=== PATIENT | male | born 1965 | race Caucasian/White ===

== ENCOUNTER → 2017-10-14 11:08 | Outpatient (CLI) | payer OTHER, SELFPAY ==
[2017-10-14 11:27] LABS: LDH 280 U/L (87-241); Uric Acid 7.1 mg/dL (3.5-7.2)
== END ==
PROVIDERS: Family Provider Family Medicine; PCP Family Medicine; Visit Provider Internal Medicine Hematology & Oncology
DX: C82.08 Follicular lymphoma grade I, lymph nodes of multiple sites (principal)
CPT/HCPCS: 83615; 84550

== ENCOUNTER 2017-12-22 06:22 | Emergency (ER) | payer OTHER, SELFPAY ==
[2017-12-22 06:23] VITALS: BP 124/67; PULSE 83; RESP 19; TEMP 36.4; O2SAT 98; BMI 37.3
--- NOTE | 2017-12-22 06:40 | RAD_ITS ---
STUDY: X-RAY CHEST REASON FOR EXAM: Male, 52 years old. Chills. TECHNIQUE: PA and lateral views of the chest. COMPARISON: None. FINDINGS: A right-sided portacatheter is in situ. The tip is at the junction of the superior vena cava and right atrium. EKG electrodes are seen. The lungs are clear and expanded. There is no demonstrated pleural abnormality. Normal size heart. Normal mediastinum and chun. Normal visualized pulmonary arteries. Normal visualized aortic arch and descending thoracic aorta. Normal visualized thoracic spine. Normal visualized ribs, clavicles, and shoulders. There is no demonstrated abnormality of the visualized soft tissue structures of the upper abdomen. RAD/Chest PA and Lateral IMPRESSION: Normal x-ray examination of the chest. Electronically Signed: Liam Albert MD at 8:16 EDT Tel [phone], Service support ,
--- NOTE | 2017-12-22 06:41 | EKG12_ITS ---
Test Reason : GEN ILLNESS Blood Pressure : / mmHG Vent. Rate : 074 BPM Atrial Rate : 074 BPM P-R Int : 156 ms QRS Dur : 128 ms QT Int : 428 ms P-R-T Axes : 039 070 029 degrees QTc Int : 475 ms Normal sinus rhythm Right bundle branch block Abnormal ECG Confirmed by LORETTA DIAMOND, HAN ([id number]), science editor MARYURI LOTT ([id number] on 12/26/2017 2:39:36 PM Referred By: ROMY Confirmed By:HAN BURGOS MD
--- NOTE | 2017-12-22 06:41 | ED.VISSUMM ---
- ER Visit Summary Date of Service: 12/22/17 Chief Complaint: Chills History of Present Illness: The patient is a 52 M who presents with chills. He has a history of lymphoma. He is currently undergoing chemotherapy and his last treatment was 1 week ago. He is also been having a lot of diarrhea and was recently treated diagnosed with an anal fissure. He states he took a bath at about 1 AM and has been chilled and unable to get warm since that time. He also complains of some diffuse myalgias and arthralgias. He reports nausea without vomiting. His temperature was normal when he took it at home. He denies any congestion rhinorrhea chest pain shortness of breath cough abdominal pain. They spoke to the on-call oncologist and were advised to be evaluated here in the emergency department. Physical Examination: Afebrile vitals are normal Moist mucous membranes Heart regular rate and rhythm Lungs are clear Abdomen soft nontender nondistended Patient does have some perianal inflammation and irritation no evidence of buttock cellulitis no perianal abscess Test Results: Pending Emergency Department Course and Treatment: Patient was seen shortly prior to shift change. Workup has been ordered including EKG laboratory studies urinalysis lactic and blood cultures given he is immunocompromised with recent chemotherapy and he also recently completed a prednisone burst. Chest x-ray is pending. This patient will be signed out to the oncoming physician to follow-up on results and discuss with oncology and make final disposition. Treatment Plan: [] Disposition: Pending workup and reevaluation Impression: Chills Myalgias Lymphoma This note was generated with [employer] dictation software. It may contain incorrect words, spelling, and punctuation that were not noted in review of the chart prior to signing ED Disposition - Plan for ED Patient: Chief Complaint: General Illness Referrals: John Ward [Primary Care Provider] -
--- NOTE | 2017-12-22 06:45 | ED.DCSUM_ITS ---
- ER Visit Summary Date of Service: 12/22/17 Chief Complaint: Chills History of Present Illness: The patient is a 52 M who presents with chills. He has a history of lymphoma. He is currently undergoing chemotherapy and his last treatment was 1 week ago. He is also been having a lot of diarrhea and was re cently treated diagnosed with an anal fissure. He states he took a bath at about 1 AM and has been chilled and unable to get warm since that time. He also complains of some diffuse myalgias and arthralgias. He reports nausea without vomiting. His temperature was normal when he took it at home. He denies any congestion rhinorrhea chest pain shortness of breath cough abdominal pain. They spoke to the on-call oncologist and were advised to be evaluated here in the emergency department. Physical Examination: Afebrile vitals are normal Moist mucous membranes Heart regular rate and rhythm Lungs are clear Abdomen soft nontender nondistended Patient does have some perianal inflammation and irritation no evidence of buttock cellulitis no perianal abscess Test Results: Pending Emergency Department Course and Treatment: Patient was seen shortly prior to shift change. Workup has been ordered including EKG laboratory studies urinalysis lactic and blood cultures given he is immunocompromised with recent chemotherapy and he also recently completed a prednisone burst. Chest x-ray is pending. This patient will be signed out to the oncoming physician to follow-up on results and discuss with oncology and make final disposition. Treatment Plan: [] Disposition: Pending workup and reevaluation Impression: Chills Myalgias Lymphoma This note was generated with [employer] dictation software. It may contain incorrect words, spelling, and punctuation that were not noted in review of the chart prior to signing ED Disposition - Plan for ED Patient: Chief Complaint: General Illness Referrals: John Ward [Primary Care Provider] -
--- NOTE | 2017-12-22 06:52 | NURSING ---
NO OLD EKGS
[2017-12-22] MEDS: Ondansetron 4 MG/2 ML Vial IV (06:53)
[2017-12-22] MEDS: 0.9% Normal Saline 1,000 ML 1000 ML IV (06:53)
[2017-12-22 07:13] LABS: Absolute Lymphocyte Count 0.36 X10^3/ul (0.83-4.51); Basophil# 0.01 X10^3/uL; Basophil% 2.2 % (0-1); Eosinophil# 0.04 X10^3/uL; Eosinophils% 8.9 % (0-5); Hematocrit 23.4 % (40-54); Hemoglobin 7.8 g/dl (13.0-16.5); Lymphocyte # 0.36 X10^3/ul (4.0); Mean Corp Hgb Conc 33.3 g/gl (32-36); Mean Corpuscular Hgb 28.8 pg (27.0-32.0); Mean Corpuscular Volume 86.3 fL (80-94); Mean Platelet Vol. 10.2 fl (6.2-12.0); Monocyte# 0.03 X10^3/uL; Monocyte% 6.7 % (0-10); Neutrophil # 0.01 X10^3/uL (2.7-7.7); Neutrophil % 2.2 % (47-70); Platelet Count 115 K/mm3 (150-450); RBC Distribution Width CV 16.3 % (11.6-14.6); RBC Distribution Width SD 51.8 fl (35.1-43.9); Red Blood Count 2.71 M/mm3 (4.6-6.2)
[2017-12-22] MEDS: Ketorolac 30 MG/ML Syringe IV (07:13)
--- NOTE | 2017-12-22 07:13 | ED.RN ---
lab called with critical lab results wbc 0.45. Dr. Malik made aware no new orders at this time
[2017-12-22 07:20] LABS: Differential Indicated SCAN CRITERIA MET; POSITIVE COUNT YES; POSITIVE DIFFERENTIAL YES; POSITIVE MORPHOLOGY YES; White Blood Count 0.5 K/mm3 (4.4-11.0)
[2017-12-22 07:25] LABS: ALB/GLOB Ratio 1.3 RATIO (0.9-2.4); AST(SGOT) 16 U/L (15-37); Alanine Aminotransfer ALT/SGPT 33 U/L (16-61); Albumin, Serum 3.3 g/dL (3.2-5.0); Alkaline Phosphatase 56 U/L (45-117); Anion Gap 6 (5-15); BUN 16 mg/dL (7-18); BUN/Creat Ratio 17.6 RATIO (10-20); Calcium,Total 7.8 mg/dL (8.5-10.1); Chloride 108 mmol/L (98-107); Creatinine, Serum 0.91 mg/dL (0.70-1.30); EST Glomerular Filtration Rate 93 mL/min (>60); Est Glom Filt Rate - Afr Amer 113 mL/min (>60); Estimated Creatinine Clearance 102.28 ml/min; Globulin 2.6 g/dL (2.2-4.2); Glucose 90 mg/dL (74-106); Potassium 3.8 mmol/L (3.5-5.1); Protein, Total 5.9 g/dL (6.4-8.2); Sodium Level 142 mmol/L (136-145)
[2017-12-22 07:30] LABS: Lactic Acid 1.4 mmol/L (0.4-2.0)
[2017-12-22 07:37] LABS: Differential Comment SCANNED; Hypochromasia 2+; Platelet Estimate SLT DEC (ADEQ)
[2017-12-22 07:51] LABS: Bacteria 0 SEEN /hpf (None Seen); Mucous, Urine 0 SEEN /hpf (<or=2+)
[2017-12-22 07:53] LABS: Color, Urine Yellow (Yellow); Glucose, Dipstick Normal (Normal); Ketone-Dipstick Negative (Negative); Leukocyte Esterase-Dipstick Negative /ul (Negative); Nitrite-Dipstick Negative (Negative); Occult Blood-Urine 25 /ul (Negative); Protein-Dipstick Negative (Negative); Urine Bilirubin Dipstick Negative (Negative); Urine Clarity Clear (Clear); Urine Urobilinogen Normal (Normal)
[2017-12-22 07:59] LABS: Red Blood Cells-Urine 5-10 SEEN /hpf (0-5); Squamous Epithelial Cells - UA 0-5 SEEN /hpf (0-5); White Blood Cells 0-5 SEEN /hpf (0-5)
--- NOTE | 2017-12-22 08:13 | NURSING ---
DR CASAREZ PAGED
[2017-12-22 08:20] VITALS: BP 124/70; PULSE 77; RESP 19; O2SAT 97
--- NOTE | 2017-12-22 08:28 | ED.DEP ---
ED Disposition - Plan for ED Patient: Disposition: Home or Assisted Living Chief Complaint: General Illness Instructions: ED Fever Unconf Cause Prescriptions: levoFLOXacin tablet [Levaquin tablet] 750 mg PO DAILY #6 tab Referrals: Ravin Flores DO [STAFF PHYSICIAN] - As soon as possible Additional Instructions: Plenty of fluids and rest. Call and follow-up with Dr. Flores in the next several days. Return if worse. Levaquin daily for the next week.
[2017-12-22] MEDS: levoFLOXacin 750 MG Tablet PO (08:30)
[2017-12-22 08:39] VITALS: PULSE 77; TEMP 37.1; O2SAT 97
[2017-12-22 15:26] LABS: Pathologist Review Reviewed
== END 2017-12-22 08:40 | disposition home or self-care (01) ==
PROVIDERS: Emergency Medicine; Emergency Provider Emergency Medicine; Family Provider Family Medicine; PCP Family Medicine
DX: R68.83 Chills (without fever) (principal); M79.1 Myalgia; C85.90 Non-Hodgkin lymphoma, unspecified, unspecified site; D61.810 Antineoplastic chemotherapy induced pancytopenia
CPT/HCPCS: 36415; 36591; 71046; 80053; 81001; 83605; 85025; 87040; 93005; 96361; 96374; 96375; 99283; J7030; A4216; J2405

== ENCOUNTER 2017-12-26 11:08 | Inpatient (IN) | payer OTHER, SELFPAY ==
[2017-12-26] VITALS (10 sets, daily range): BP systolic 112–150; BP diastolic 50–82; PULSE 72–104; RESP 14–18; TEMP 37.3–38.1; O2SAT 95–100; BMI 36.2; BMI 36.3
--- NOTE | 2017-12-26 11:21 | CT_ITS ---
STUDY: CT ABDOMEN AND PELVIS WITH CONTRAST REASON FOR EXAM: Male, 52 years old. LYMPHOMA, FEVER, ABD PAIN RADIATION DOSAGE (If Supplied By Facility): CTDIvol = ( 19.36 ) mGy, DLP = ( 1501.15 ) mGycm TECHNIQUE: Transaxial images were obtained from the dome of the diaphragm to the symphysis pubis without oral contrast. 100 ml of Isovue 300 contrast was administered. Sagittal and coronal images were reconstructed. Individualized dose optimization techniques were used for this CT. COMPARISON: None. FINDINGS: The visualized lung bases are unremarkable. The visualized portions of the heart are within normal limits. There is decreased attenuation of the liver consistent with steatosis. Normal gallbladder and extrahepatic biliary system. There is moderate splenomegaly. Normal pancreas. Normal bilateral adrenal glands. Normal right kidney. There is a 1 cm calcification of the left kidney Normal visualized stomach. Normal small intestine. Normal colon. There are surgical clips in the region of the appendix consistent with a prior appendectomy. Normal abdominal aorta. Normal inferior vena cava. There is retroperitoneal lymphadenopathy with enlarged nodes greater than 10-15mm in the short axis and measuring up to 3 cm. Additionally there are enlarged lymph nodes along the mesenteric root, measuring up to 2 cm. Normal urinary bladder. There is trace amount of free fluid within the pelvis. There is an 8 cm lobulated cystic structures at the left inguinal region Normal osseous structures. CT/Abdomen/Pelvis W IV Cont ONLY IMPRESSION: Retroperitoneal and mesenteric lymphadenopathy. Splenomegaly. Liver steatosis. 1 cm left kidney stone. Trace free fluid. Electronically Signed: Estevan Troncoso MD at 12:18 EDT Tel , Service support ,
--- NOTE | 2017-12-26 11:23 | ED.VISSUMM ---
- ER Visit Summary Date of Service: 12/26/17 Chief Complaint: Fever History of Present Illness: The patient is a 52 M who presents with a fever. Started last week. He was seen here and was given Levaquin. He was found to be neutropenic but looked well. His fever was doing well over the weekend but yesterday it started back. He is 102 ?F this morning. He has had body aches associated with this. He has had a lot of rectal pain. He was diagnosed with an anal fissure but he thinks something else could be going on. He has not had a cough. His urine has been getting smaller in quantity as well as darker. He does have a history of lymphoma. He is currently on chemotherapy. Physical Examination: Vital signs reviewed. Notable for temperature of 99.9 ?F HEENT exam unremarkable. Heart is tachycardic and regular rhythm without murmurs. Lungs are clear to auscultation. Abdomen is soft and nontender. Extremities reveal no edema. Skin exam normal. Neurologic exam normal. Test Results: White blood cell count 1.0, hemoglobin 8.2. Glucose 107. Urinalysis normal. Lactate 1.4. Chest x-ray reveals chronic changes. CAT scan of the abdomen pelvis reveals lymphadenopathy with splenomegaly Emergency Department Course and Treatment: I do not find any definite cause of the patient's fevers. He has nothing in his rectal area. I discussed this with Dr. Flores. Patient will be started on vancomycin and meropenem and admitted to the hospital. Treatment Plan: [] Disposition: Admit Impression: Neutropenic fever This note was generated with [employer] dictation software. It may contain incorrect words, spelling, and punctuation that were not noted in review of the chart prior to signing ED Disposition - Plan for ED Patient: Chief Complaint: Fever Referrals: John Ward [Primary Care Provider] -
--- NOTE | 2017-12-26 11:25 | RAD_ITS ---
STUDY: X-RAY CHEST REASON FOR EXAM: Male, 52 years old. Cough and fever. The patient is currently on chemotherapy for treatment of lymphoma. TECHNIQUE: Single AP portable view of the chest. COMPARISON: Comparison is made with prior study dated December 22, 2017. FINDINGS: A right-sided port catheter is in situ. The tip is at the junction of the superior vena cava and right atrium. The lungs are clear and expanded. There is no demonstrated pleural abnormality. There is borderline cardiomegaly. Prominence of the aortic pulmonary window. This may represent adenopathy. Normal visualized pulmonary arteries. Normal visualized aortic arch and descending thoracic aorta. Normal visualized thoracic spine. Normal visualized ribs, clavicles, and shoulders. There is no demonstrated abnormality of the visualized soft tissue structures of the upper abdomen. RAD/Chest 1 View (Portable) IMPRESSION: No acute infiltrate is seen. Prominence of the aortic pulmonary window. Electronically Signed: Liam Albert MD at 12:33 EDT Tel [phone], Service support ,
[2017-12-26] MEDS: Ketorolac 30 MG/ML Syringe IV (11:52)
[2017-12-26 12:00] LABS: Bacteria 0 SEEN /hpf (None Seen); Mucous, Urine 0 SEEN /hpf (<or=2+); Red Blood Cells-Urine 0 SEEN /hpf (0-5); Squamous Epithelial Cells - UA 0 SEEN /hpf (0-5); White Blood Cells 0 SEEN /hpf (0-5)
[2017-12-26 12:00] LABS: Hemoglobin 8.2 g/dl (13.0-16.5); Mean Corp Hgb Conc 32.8 g/gl (32-36); Mean Corpuscular Hgb 28.1 pg (27.0-32.0); Mean Corpuscular Volume 85.6 fL (80-94); Mean Platelet Vol. 9.9 fl (6.2-12.0); Platelet Count 107 K/mm3 (150-450); RBC Distribution Width CV 16.2 % (11.6-14.6); RBC Distribution Width SD 51.1 fl (35.1-43.9); Red Blood Count 2.92 M/mm3 (4.6-6.2)
[2017-12-26 12:01] LABS: Color, Urine Yellow (Yellow); Glucose, Dipstick Normal (Normal); Ketone-Dipstick Negative (Negative); Leukocyte Esterase-Dipstick Negative /ul (Negative); Nitrite-Dipstick Negative (Negative); Occult Blood-Urine Negative /ul (Negative); Protein-Dipstick Negative (Negative); Urine Bilirubin Dipstick Negative (Negative); Urine Clarity Clear (Clear); Urine Urobilinogen Normal (Normal)
[2017-12-26 12:02] LABS: Differential Indicated MANUAL DIFF; POSITIVE COUNT YES; POSITIVE DIFFERENTIAL YES; POSITIVE MORPHOLOGY YES
[2017-12-26 12:12] LABS: ALB/GLOB Ratio 1.1 RATIO (0.9-2.4); AST(SGOT) 39 U/L (15-37); Alanine Aminotransfer ALT/SGPT 44 U/L (16-61); Albumin, Serum 3.3 g/dL (3.2-5.0); Alkaline Phosphatase 69 U/L (45-117); Anion Gap 8 (5-15); BUN 10 mg/dL (7-18); BUN/Creat Ratio 8.1 RATIO (10-20); Calcium,Total 8.4 mg/dL (8.5-10.1); Chloride 104 mmol/L (98-107); Creatinine, Serum 1.23 mg/dL (0.70-1.30); EST Glomerular Filtration Rate 66 mL/min (>60); Est Glom Filt Rate - Afr Amer 80 mL/min (>60); Estimated Creatinine Clearance 75.67 ml/min; Globulin 3.1 g/dL (2.2-4.2); Glucose 107 mg/dL (74-106); Protein, Total 6.4 g/dL (6.4-8.2); Sodium Level 140 mmol/L (136-145)
[2017-12-26 12:20] LABS: Lactic Acid 1.4 mmol/L (0.4-2.0)
[2017-12-26] MEDS: oxyCODONE 5 MG Tablet PO (12:30)
--- NOTE | 2017-12-26 13:00 | HP.PCM_ITS ---
Problem List (1) Lymphoma Status: Chronic Qualifiers: Lymphoma type: non-Hodgkin Non-Hodgkin lymphoma type: follicular Lymphoma site: unspecified region (2) Neutropenic fever Status: Acute (3) Pancytopenia Status: Acute (4) Anal fissure Status: Chronic History of Present Illness Date of Admission: 12/26/17 Chief Complaint: Fever-1weeks The patient is a 52 year old M with PMHx of Follicular lymphoma, grade 1, stage 3-4, follows up with Dr. Flores in the outpatient, comes in with complaints of fever ongoing for 1 week. Patient is on R-CHOP, last had chemotherapy a week ago. He has since been complaining of fever with a high as being 102F. He was seen in the ED on 05/04/2007, blood cultures were taken that were negative, patient was discharged on Levaquin. The called the oncology office with persistent fever, was asked to come back to the ED. He complains of having pain when he moves his bowels, history of anal fissure, noted the last 2 bowel movements 1 day prior to admission's were all bloody, seen more when he wipes himself. He complains of worsening pain in his and erectile area. Denies any nausea or vomiting or abdominal pain Vitals in the ED showed temperature of 90 9.9F, heart rate 104, blood pressure 1 5073, respiratory rate 18, SPO2 98% on room air. BC count is 1.0, Hb is 8.2, platelet count is 107, absolute neutrophil count is 500. BMP is unremarkable except for slight elevation in creatinine of 1.23, up from 0.98. Lactic acid is 1.4, UA is unremarkable CT abdomen and pelvics is consistent with liver steatosis, moderate splenomegaly, retro peritoneal lymph nodes, 1 cm left kidney stone Past Medical History Past Medical History (Chronic Problems): Chronic Problems Lymphoma (Chronic) Anal fissure (Chronic) Allergies No Known Allergies Allergy (Verified 12/22/17 06:26) Home Medications: Ambulatory Orders Medication Instructions Recorded Acyclovir 400 mg PO BID 12/22/17 Allopurinol 300 mg PO DAILY 12/22/17 Dibucaine 1 applic TOPICAL TID PRN PRN 12/22/17 Hydrocodone/Acetaminophen [[place] 1 ea PO Q4H PRN PRN #20 tab 12/22/17 5-325 Tablet] Ibuprofen 400 mg PO Q8H PRN 12/22/17 Ondansetron [Zofran Odt] 8 mg PO Q8H PRN PRN 12/22/17 Oxycodone HCl/Acetaminophen 1 tablet PO Q4H PRN PRN 12/22/17 [Percocet 5/325] levoFLOXacin tablet [Levaquin 750 mg PO DAILY #6 tab 12/22/17 tablet] Surgical History: appendectomy, - - Status post inguinal lymph node sampling Psychiatric History: No pertinent psych hx Lives: Spouse/ Significant Other Smoking Status: Never smoker Tobacco Use: Non-smoker Alcohol: None Drugs: None - *Family History Maternal History Items: No pertinent history Paternal History Items: Cancer - Leukemia, Heart Disease - CHF Sibling History Items: No pertinent history Review of Systems Constitutional: Reports: Anorexia, Chills, Fever, Malaise, Weakness, Fatigue. Denies: Weight Change Eyes: Denies: Blurred vision, Cataracts, Conjunctivae Inflammation, Pain, Redness HEENT: Reports: Head Aches. Denies: Difficulty Swallowing, Sinus Congestion, Sinus Drainage, Sore Throat, Visual Changes Cardiovascular: Reports: Light Headedness. Denies: Chest Pain, Claudication, Chest Pressure, Edema, Orthopnea, Palpitations, Paroxysmal Noc. Dyspnea, Syncope Respiratory: Reports: Shortness of breath upon exertion. Denies: Cough, Shortness of breath at rest, Sputum production Gastrointestinal: Reports: Hematochezia. Denies: Abdominal Pain, Constipation, Hematemesis, Nausea, Vomiting Genitourinary: Denies: Dysuria, Frequency, Incontinence, Nocturia Musculoskeletal: Denies: Joint Pain, Joint stiffness, Joint swelling, Joint Tenderness Skin: Denies: Dryness, Jaundice, Rash, Wounds Neurological: Reports: Headaches. Denies: Difficulty swallowing, Focal weakness, Numbness, Tingling Psychiatric: Denies: Anxiety, Depression, Homicidal Ideations, Suicidal Ideations Hematologic/ Lymphatic: Denies: Easy Bruising, Easy Bleeding VTE Information - Inpt Only VTE Present on Admission: No VTE Pharm Prophylaxis ordered?: Yes Patient Problems: Active and Suspected Problems Neutropenic fever (Acute) Pancytopenia (Acute) - Physical Exam General: Alert, Oriented x3, Cooperative, - - Appears unwell, and pain HEENT: Atraumatic, PERRLA, EOMI, Normocephalic Oral: Dry Mucosa Neck: Supple, No JVD, Negative Carotid Bruits Lungs: Clear to auscultation, Normal air movement Cardiovascular: Regular rate, Regular Rhythm, Normal S1, Normal S2, No murmurs Abdomen: Bowel Sounds Present, Soft, Non Tender, Non-Distended, No Hepato- splenomegaly Extremities: No edema Skin: No rashes, No breakdown Musculoskeletal: No Tenderness to Palpation of Joints or Extremities Lymphatic: No Cervical, Supraclavicular, or Inguinal Adenopathy Neurological: Cranial nerves II-XII grossly intact, Neuro grossly intact Psych/Mental Status: Normal Affect, Appropriate Vital Signs Temp Pulse Resp BP Pulse Ox 99.9 F H 85 14 118/75 95 12/26/17 11:09 12/26/17 12:09 12/26/17 12:09 12/26/17 12:09 12/26/17 12:09 Oxygen Delivery Method Room Air Weight: 117.934 kg Body Mass Index (BMI) 36.2 Laboratory Tests Past 24 Hrs 12/26/17 12/26/17 12/26/17 11:50 11:50 11:50 WBC 1.0 L* RBC 2.92 L Hgb 8.2 L Hct 25.0 L MCV 85.6 MCH 28.1 MCHC 32.8 RDW 16.2 H RDW Differential 51.1 H Plt Count 107 L MPV 9.9 Neut % (Auto) Not Reportable Absolute Neuts (auto) Not Reportable Total Counted Pending Sodium 140 Potassium 4.0 Chloride 104 Carbon Dioxide 28.0 Anion Gap 8 BUN 10 Creatinine 1.23 Estim Creat Clear Calc 75.67 Est GFR (MDRD) Af Amer 80 Est GFR (MDRD) Non-Af 66 BUN/Creatinine Ratio 8.1 L Glucose 107 H Lactic Acid 1.4 Calcium 8.4 L Total Bilirubin 0.80 AST 39 H ALT 44 Alkaline Phosphatase 69 Total Protein 6.4 Albumin 3.3 Globulin 3.1 Albumin/Globulin Ratio 1.1 Urine Color Urine Clarity Urine pH Ur Specific [place] Urine Protein Urine Glucose (UA) Urine Ketones Urine Occult Blood Urine Nitrite Urine Bilirubin Urine Urobilinogen Ur Leukocyte Esterase Urine RBC Urine WBC Ur Squamous Epith Cells Urine Bacteria Urine Mucus 12/26/17 11:55 WBC RBC Hgb Hct MCV MCH MCHC RDW RDW Differential Plt Count MPV Neut % (Auto) Absolute Neuts (auto) Total Counted Sodium Potassium Chloride Carbon Dioxide Anion Gap BUN Creatinine Estim Creat Clear Calc Est GFR (MDRD) Af Amer Est GFR (MDRD) Non-Af BUN/Creatinine Ratio Glucose Lactic Acid Calcium Total Bilirubin AST ALT Alkaline Phosphatase Total Protein Albumin Globulin Albumin/Globulin Ratio Urine Color Yellow Urine Clarity Clear Urine pH 8.0 Ur Specific [place] 1.010 Urine Protein Negative Urine Glucose (UA) Normal Urine Ketones Negative Urine Occult Blood Negative Urine Nitrite Negative Urine Bilirubin Negative Urine Urobilinogen Normal Ur Leukocyte Esterase Negative Urine RBC 0 SEEN Urine WBC 0 SEEN Ur Squamous Epith Cells 0 SEEN Urine Bacteria 0 SEEN Urine Mucus 0 SEEN Assessment/Plan All Active Problems Neutropenic fever (Acute) Pancytopenia (Acute) 52 year old M with PMHx of Follicular lymphoma, grade 1, stage 3-4, follows up with Dr. Flores in the outpatient, comes in with complaints of fever ongoing for 1 week. 1. Neutropenic fever, WBC count is 1.0, absolute neutrophil count is 500, history of lymphoma, status post R CHOP 1 week ago Previous blood cultures negative, repeat blood cultures pending, chest x-ray unremarkable, CT of abdomen and pelvis negative for focal source of infection Plan: Admit to [facility], neutropenic precautions, IV fluids, IV meropenem, IV vancomycin, follow-up on blood cultures, ID consult, oncology consult, continue on home allopurinol as well as acyclovir 2. Rectal bleeding, history of anal fissures, will consult Dr. Pedro, continue on hydrocortisone rectal, stool softeners 3. RY, and the patient with normal kidney function, secondary to dehydration, IV fluids, repeat labs in the morning 4. Pancytopenia related to recent chemotherapy, hemoglobin is 8.2, will continue to trend H&H, will transfuse if hemoglobin is less than 7 5. Lymphoma, stage III/IV, oncology following 6. DVT prophylaxis with SCDs and account of recent rectal bleeding Code Visit Inpatient E&M: [id number] [facility] Hosp L3
[2017-12-26 13:06] LABS: Basophil 2 % (0-1); Lymphocyte 36 % (19-41); Metamyelocyte 2 % (0-1); Monocyte 2 % (0-10); Neutrophil-Segmented 54 % (47-70); Promyelocyte 4 (0-0); Total Cells Counted 50 (MANUAL DIFF)
[2017-12-26 13:07] LABS: Absolute Neutrophil Count 0.5 X10^3/uL (2.0-7.7); Platelet Estimate SLT DEC (ADEQ); Red Cell Morphology NORM C+C NORMAL (NORM C&C)
[2017-12-26 13:08] LABS: Absolute Lymphocyte Count 0.36 X10^3/ul (0.83-4.51); Lymphocyte # 0.36 X10^3/ul (4.0)
[2017-12-26] MEDS: HYDROcodone Bitartrate/Apap 5/325 Tablet PO ×2 (15:00→19:07)
--- NOTE | 2017-12-26 15:24 | PCM.RX.CS ---
Consult Pharmacy has been consulted to manage selected antiobiotic: Vancomycin Type of Consult: New start Suspected Infection: Sepsis Labs: Sodium 140 mmol/L (136-145) 12/26/17 11:50 Potassium 4.0 mmol/L (3.5-5.1) 12/26/17 11:50 Chloride 104 mmol/L (98-107) 12/26/17 11:50 Carbon Dioxide 28.0 mmol/L (21.0-32.0) 12/26/17 11:50 Anion Gap 8 (5-15) 12/26/17 11:50 BUN 10 mg/dL (7-18) 12/26/17 11:50 Creatinine 1.23 mg/dL (0.70-1.30) 12/26/17 11:50 Est GFR (MDRD) Af Amer 80 mL/min (>60) 12/26/17 11:50 Est GFR (MDRD) Non-Af 66 mL/min (>60) 12/26/17 11:50 BUN/Creatinine Ratio 8.1 RATIO (10-20) L 12/26/17 11:50 Glucose 107 mg/dL (74-106) H 12/26/17 11:50 Weight used for dosin lb 2.327 oz Estimated Creatinine Clearance: 75.6 Goal Trough: 15-20 mcg/mL Pharmacy Plan for Drug Dosing: Dose in ED 1750mg, maintenance dose 1750 mg q12h. Trough will be done 12/28 at 03:30 before 4th dose Pharmacy Service will continue to monitor and adjust dosing as required.
--- NOTE | 2017-12-26 18:11 | CON.PCM_ITS ---
Reason for Consult Date of Consultation: 12/26/17 History of Present Illness: The patient is a 52 year old M with anal pain and bleeding. The patient presented to my office on December 02, with a few week course of anal pain with defecation and bleeding. 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 He is also in the middle of treatment for follicular lymphoma. he was started on conservative treatment which included topical anesthetic cream-dibucaine, sitz baths, and regulation of his bowels. The pain persisted and we started on Cardizem/diltiazem ointment in effort to cause sphincter relaxation to allow the fissure to heal. The patient is now being admitted was to continue the hospital with neutropenic fever in the course of his lymphoma treatment. I am consulted for ongoing anal pain. CT scan of the abdomen and pelvis was obtained. This demonstrated significant adenopathy. Review of the perianal area demonstrated no abscesses or undrained collections which would explain his symptoms beyond a fissure Past Medical History Past Medical History (Chronic Problems): Chronic Problems Lymphoma (Chronic) Anal fissure (Chronic) Allergies No Known Allergies Allergy (Verified 12/22/17 06:26) Home Medications: Ambulatory Orders Medication Instructions Recorded Acyclovir 400 mg PO BID 12/22/17 Allopurinol 300 mg PO DAILY 12/22/17 Dibucaine 1 applic TOPICAL TID PRN PRN 12/22/17 Hydrocodone/Acetaminophen [[place] 1 ea PO Q4H PRN PRN #20 tab 12/22/17 5-325 Tablet] Ibuprofen 400 mg PO Q8H PRN 12/22/17 Ondansetron [Zofran Odt] 8 mg PO Q8H PRN PRN 12/22/17 Oxycodone HCl/Acetaminophen 1 tablet PO Q4H PRN PRN 12/22/17 [Percocet 5/325] levoFLOXacin tablet [Levaquin 750 mg PO DAILY #6 tab 12/22/17 tablet] Surgical History: appendectomy, - - Status post inguinal lymph node sampling Psychiatric History: No pertinent psych hx Lives: Spouse/ Significant Other Smoking Status: Never smoker Tobacco Use: Non-smoker Alcohol: None Drugs: None - *Family History Maternal History Items: No pertinent history Paternal History Items: Cancer - Leukemia, Heart Disease - CHF Sibling History Items: No pertinent history Patient Problems: Active and Suspected Problems Neutropenic fever (Acute) Pancytopenia (Acute) - Physical Exam General: Alert, Oriented x3 Lungs: Clear to auscultation, Normal air movement Cardiovascular: Regular rate, Regular Rhythm Extremities: - - anal exam-a posterior anal tag with additional spreading, demonstrating a posterior anal fissure. Patient noted significant pain with anal distraction-digital rectal exam deferred due to pain Vital Signs Temp Pulse Resp BP Pulse Ox 99.1 F 75 16 129/50 H 98 12/26/17 14:00 12/26/17 16:00 12/26/17 14:00 12/26/17 14:00 12/26/17 14:00 Oxygen Delivery Method Room Air Weight: 118.07 kg Body Mass Index (BMI) 36.3 Laboratory Tests Past 24 Hrs 12/26/17 12/26/17 12/26/17 11:50 11:50 11:50 WBC 1.0 L* RBC 2.92 L Hgb 8.2 L Hct 25.0 L MCV 85.6 MCH 28.1 MCHC 32.8 RDW 16.2 H RDW Differential 51.1 H Plt Count 107 L MPV 9.9 Neut % (Auto) Not Reportable Absolute Neuts (auto) 0.5 L Absolute Lymphs (auto) 0.36 L Total Counted 50 Neutrophils % (Manual) 54 Lymphocytes % (Manual) 36 Monocytes % (Manual) 2 Basophils % (Manual) 2 H Metamyelocytes % 2 H Promyelocytes % 4 H Diff Path Review May foll Platelet Estimate SLT DEC RBC Morphology NORM C+C Sodium 140 Potassium 4.0 Chloride 104 Carbon Dioxide 28.0 Anion Gap 8 BUN 10 Creatinine 1.23 Estim Creat Clear Calc 75.67 Est GFR (MDRD) Af Amer 80 Est GFR (MDRD) Non-Af 66 BUN/Creatinine Ratio 8.1 L Glucose 107 H Lactic Acid 1.4 Calcium 8.4 L Total Bilirubin 0.80 AST 39 H ALT 44 Alkaline Phosphatase 69 Total Protein 6.4 Albumin 3.3 Globulin 3.1 Albumin/Globulin Ratio 1.1 Urine Color Urine Clarity Urine pH Ur Specific [place] Urine Protein Urine Glucose (UA) Urine Ketones Urine Occult Blood Urine Nitrite Urine Bilirubin Urine Urobilinogen Ur Leukocyte Esterase Urine RBC Urine WBC Ur Squamous Epith Cells Urine Bacteria Urine Mucus 12/26/17 11:55 WBC RBC Hgb Hct MCV MCH MCHC RDW RDW Differential Plt Count MPV Neut % (Auto) Absolute Neuts (auto) Absolute Lymphs (auto) Total Counted Neutrophils % (Manual) Lymphocytes % (Manual) Monocytes % (Manual) Basophils % (Manual) Metamyelocytes % Promyelocytes % Diff Path Review Platelet Estimate RBC Morphology Sodium Potassium Chloride Carbon Dioxide Anion Gap BUN Creatinine Estim Creat Clear Calc Est GFR (MDRD) Af Amer Est GFR (MDRD) Non-Af BUN/Creatinine Ratio Glucose Lactic Acid Calcium Total Bilirubin AST ALT Alkaline Phosphatase Total Protein Albumin Globulin Albumin/Globulin Ratio Urine Color Yellow Urine Clarity Clear Urine pH 8.0 Ur Specific [place] 1.010 Urine Protein Negative Urine Glucose (UA) Normal Urine Ketones Negative Urine Occult Blood Negative Urine Nitrite Negative Urine Bilirubin Negative Urine Urobilinogen Normal Ur Leukocyte Esterase Negative Urine RBC 0 SEEN Urine WBC 0 SEEN Ur Squamous Epith Cells 0 SEEN Urine Bacteria 0 SEEN Urine Mucus 0 SEEN Assessment/Plan All Active Problems Neutropenic fever (Acute) Pancytopenia (Acute) anal pain and bleeding-clinically and by history anal fissure-neutropenic fever secondary to treatment for lymphoma. Currently, I don't have other fabulously suggestions beyond pain management, in the form of local anesthetic creams, and diltiazem ointment. If diltiazem ointment is not working, I will often changed to pramoxine - but this is nonformulary locally. I have reached out to colorectal surgeons at [facility] to see if they have other suggestions. This could include Botox injection or liposomal bupivacaine for longer anesthetic relief. I would not consider lateral internal sphincterotomy while he is in the course of his treatments. I reviewed the CT scan. I did not see any significant pelvic or perianal collections that would make me worry about pelvic abscess.
[2017-12-26] MEDS: 0.9% Normal Saline 1,000 ML 100 ML IV (19:08)
[2017-12-26] MEDS: Acyclovir 200 MG Capsule 400 MG PO (21:47)
[2017-12-26] MEDS: Senna/Docusate Sodium 1 Tablet 2 TABLET PO (21:47)
[2017-12-27] VITALS (15 sets, daily range): BP systolic 104–175; BP diastolic 57–94; PULSE 65–86; RESP 16–20; TEMP 37.1–37.6; O2SAT 95–99
[2017-12-27] MEDS: Acetaminophen 325 MG Tablet 650 MG PO ×4 (00:05→20:18)
[2017-12-27] MEDS: Zolpidem Tartrate 5 MG Tablet PO ×2 (00:06→22:18)
[2017-12-27] MEDS: HYDROcodone Bitartrate/Apap 5/325 Tablet PO ×2 (00:09→22:17)
[2017-12-27] MEDS: 0.9% NaCl VAD Flush 10 ML IV ×4 (05:51→08:16)
[2017-12-27 05:52] LABS: Absolute Lymphocyte Count 0.31 X10^3/ul (0.83-4.51); Absolute Neutrophil Count 0.4 X10^3/uL (2.0-7.7); Basophil# 0.01 X10^3/uL; Basophil% 1.4 % (0-1); Hematocrit 20.9 % (40-54); Hemoglobin 6.9 g/dl (13.0-16.5); Lymphocyte # 0.31 X10^3/ul (4.0); Lymphocyte % 43.1 % (19-41); Mean Corpuscular Hgb 28.9 pg (27.0-32.0); Mean Corpuscular Volume 87.4 fL (80-94); Mean Platelet Vol. 9.7 fl (6.2-12.0); Monocyte# 0.04 X10^3/uL; Monocyte% 5.6 % (0-10); Neutrophil # 0.36 X10^3/uL (2.7-7.7); Neutrophil % 49.9 % (47-70); Platelet Count 97 K/mm3 (150-450); RBC Distribution Width CV 15.5 % (11.6-14.6); RBC Distribution Width SD 47.4 fl (35.1-43.9); Red Blood Count 2.39 M/mm3 (4.6-6.2)
[2017-12-27 05:55] LABS: Differential Indicated SCAN CRITERIA MET; POSITIVE COUNT YES; POSITIVE DIFFERENTIAL YES; POSITIVE MORPHOLOGY YES; White Blood Count 0.7 K/mm3 (4.4-11.0)
[2017-12-27 06:02] LABS: Anion Gap 7 (5-15); BUN 10 mg/dL (7-18); BUN/Creat Ratio 9.1 RATIO (10-20); Calcium,Total 7.9 mg/dL (8.5-10.1); Chloride 109 mmol/L (98-107); EST Glomerular Filtration Rate 75 mL/min (>60); Est Glom Filt Rate - Afr Amer 91 mL/min (>60); Estimated Creatinine Clearance 84.62 ml/min; Glucose 85 mg/dL (74-106); Sodium Level 144 mmol/L (136-145)
[2017-12-27 06:21] LABS: Differential Comment SCANNED; Microcytosis 2+; Platelet Estimate SLT DEC (ADEQ)
[2017-12-27] MEDS: 0.9% NaCl IVPB Med Flush (250 mL) 15 ML IV (06:23)
[2017-12-27] MEDS: 0.9% Normal Saline 1,000 ML 100 ML IV (07:08)
--- NOTE | 2017-12-27 07:55 | CON.PCM_ITS ---
Problem List (1) Neutropenic fever Status: Acute (2) Pancytopenia Status: Acute (3) Lymphoma Status: Chronic Qualifiers: Lymphoma type: non-Hodgkin Non-Hodgkin lymphoma type: follicular Follicular lymphoma type: diffuse follicle center Lymphoma site: multiple regions Qualified Code(s): C82.58 - Diffuse follicle center lymphoma, lymph nodes of multiple sites - Consult Date of Consult: 12/27/[address] Morrison patient with neutropenic fever, pancytopenia with history of follicular lymphoma. My final recommendation will be communicated by electronic medical records & to Dr. Glaser. - Reason for Consult Neutropenic fever Anemia secondary to chemotherapy History of follicular lymphoma; status post R CHOP & Neulasta History of Present Illness Date of Admission: 12/26/17 Chief Complaint: Fever-1weeks The patient is a 52 year old M with PMHx of Follicular lymphoma, grade 1, stage 3, 1 week history of rectal bleeding and pain and recurrent fever after chemotherapy treatment on 12/15/2017..Patient received fourth cycle of R-CHOP and Neulasta 10 days ago. He has since been complaining of recurrent fever with a high as 102F last week. He was seen in the ED on 05/04/2007, blood cultures were taken that were negative, patient was discharged on Levaquin. He also complained of rectal bleeding and pain secondary to rectal fissure. He complains of having increased rectal pain when he moves his bowels, history of anal fissure, noted the last 2 bowel movements 1 day prior to admission's were all bloody, seen more when he wipes himself. He complains of worsening pain in his and erectile area. Denies any nausea or vomiting or abdominal pain, cough, shortness of breath, or dysuria. Vitals in the ED showed temperature of 90 9.9F, heart rate 104, blood pressure 1 5073, respiratory rate 18, SPO2 98% on room air. WBC count is 1.0, Hb is 8.2, platelet count is 107, absolute neutrophil count is 500. BMP is unremarkable except for slight elevation in creatinine of 1.23, up from 0.98. Lactic acid is 1.4, UA is unremarkable CT abdomen and pelvics is consistent with liver steatosis, moderate splenomegaly, retro peritoneal lymph nodes, 1 cm left kidney stone There is no evidence of a pelvic or rectal abscess. He was started on meropenem and vancomycin antibiotic in the emergency room. Patient has no nausea, vomiting, or diarrhea today. He still have rectal pain and bleeding with bowel movement. He has been afebrile since last night. He has fatigue, but no shortness of breath, lightheadedness or dizziness. His hemoglobin today was 6.9 gm/dl Past Medical History Past Medical History (Chronic Problems): Chronic Problems Lymphoma (Chronic) Anal fissure (Chronic) Allergies No Known Allergies Allergy (Verified 12/22/17 06:26) Home Medications: Ambulatory Orders Medication Instructions Recorded Acyclovir 400 mg PO BID 12/22/17 Allopurinol 300 mg PO DAILY 12/22/17 Dibucaine 1 applic TOPICAL TID PRN PRN 12/22/17 Hydrocodone/Acetaminophen [[place] 1 ea PO Q4H PRN PRN #20 tab 12/22/17 5-325 Tablet] Ibuprofen 400 mg PO Q8H PRN 12/22/17 Ondansetron [Zofran Odt] 8 mg PO Q8H PRN PRN 12/22/17 Oxycodone HCl/Acetaminophen 1 tablet PO Q4H PRN PRN 12/22/17 [Percocet 5/325] levoFLOXacin tablet [Levaquin 750 mg PO DAILY #6 tab 12/22/17 tablet] Surgical History: appendectomy, - - Status post inguinal lymph node sampling Psychiatric History: No pertinent psych hx Lives: Spouse/ Significant Other Smoking Status: Never smoker Tobacco Use: Non-smoker Alcohol: None Drugs: None - *Family History Maternal History Items: No pertinent history Paternal History Items: Cancer - Leukemia, Heart Disease - CHF Sibling History Items: No pertinent history Review of Systems Constitutional: Reports: Anorexia, Chills, Fever, Malaise, Weakness, Fatigue. Denies: Weight Change Eyes: Denies: Blurred vision, Cataracts, Conjunctivae Inflammation, Pain, Redness HEENT: Reports: Head Aches. Denies: Difficulty Swallowing, Sinus Congestion, Sinus Drainage, Sore Throat, Visual Changes Cardiovascular: Reports: Light Headedness. Denies: Chest Pain, Claudication, Chest Pressure, Edema, Orthopnea, Palpitations, Paroxysmal Noc. Dyspnea, Syncope Respiratory: Reports: Shortness of breath upon exertion. Denies: Cough, Shortness of breath at rest, Sputum production Gastrointestinal: Reports: Hematochezia. Denies: Abdominal Pain, Constipation, Hematemesis, Nausea, Vomiting Genitourinary: Denies: Dysuria, Frequency, Incontinence, Nocturia Musculoskeletal: Denies: Joint Pain, Joint stiffness, Joint swelling, Joint Tenderness Skin: Denies: Dryness, Jaundice, Rash, Wounds Neurological: Reports: Headaches. Denies: Difficulty swallowing, Focal weakness, Numbness, Tingling Psychiatric: Denies: Anxiety, Depression, Homicidal Ideations, Suicidal Ideations Hematologic/ Lymphatic: Denies: Easy Bruising, Easy Bleeding Neutropenic fever (Acute) Pancytopenia (Acute) - Physical Exam General: Alert, Oriented x3, Cooperative, - - Appears unwell, and pain HEENT: Atraumatic, PERRLA, EOMI, Normocephalic Oral: Dry Mucosa Neck: Supple, No JVD, Negative Carotid Bruits Lungs: Clear to auscultation, Normal air movement Cardiovascular: Regular rate, Regular Rhythm, Normal S1, Normal S2, No murmurs Abdomen: Bowel Sounds Present, Soft, Non Tender, Non-Distended, No Hepato- splenomegaly Extremities: No edema Skin: No rashes, No breakdown Musculoskeletal: No Tenderness to Palpation of Joints or Extremities Lymphatic: No Cervical, Supraclavicular, or Inguinal Adenopathy Neurological: Cranial nerves II-XII grossly intact, Neuro grossly intact Psych/Mental Status: Normal Affect, Appropriate Vital Signs - 24 hr Temp Pulse Resp BP Pulse Ox 12/27/17 07:29 76 12/27/17 02:08 99.1 F 79 18 111/69 98 12/27/17 01:59 86 12/26/17 23:13 100.6 F H 12/26/17 20:08 99.4 F H 76 16 129/68 H 100 12/26/17 20:00 74 12/26/17 16:00 75 12/26/17 14:20 76 12/26/17 14:00 99.1 F 72 16 129/50 H 98 12/26/17 13:03 85 14 115/70 95 12/26/17 12:09 85 14 118/75 95 12/26/17 11:35 90 14 121/82 H 95 12/26/17 11:09 99.9 F H 104 H 18 150/73 H 98 Oxygen Delivery Method Room Air Weight: 117.934 kg Body Mass Index (BMI) 36.2 Laboratory Results - last 24 hr 12/26/17 12/26/17 12/26/17 11:50 11:50 11:50 WBC 1.0 L* RBC 2.92 L Hgb 8.2 L Hct 25.0 L MCV 85.6 MCH 28.1 MCHC 32.8 RDW 16.2 H RDW Differential 51.1 H Plt Count 107 L MPV 9.9 Immature Gran % (Auto) Neut % (Auto) Not Reportable Lymph % (Auto) [place] % (Auto) Eos % (Auto) Baso % (Auto) Absolute Neuts (auto) 0.5 L Absolute Lymphs (auto) 0.36 L Total Counted 50 Neutrophils % (Manual) 54 Lymphocytes % (Manual) 36 Monocytes % (Manual) 2 Basophils % (Manual) 2 H Metamyelocytes % 2 H Promyelocytes % 4 H Differential Comment Diff Path Review May foll Platelet Estimate SLT DEC RBC Morphology NORM C+C Microcytosis Sodium 140 Potassium 4.0 Chloride 104 Carbon Dioxide 28.0 Anion Gap 8 BUN 10 Creatinine 1.23 Estim Creat Clear Calc 75.67 Est GFR (MDRD) Af Amer 80 Est GFR (MDRD) Non-Af 66 BUN/Creatinine Ratio 8.1 L Glucose 107 H Lactic Acid 1.4 Calcium 8.4 L Total Bilirubin 0.80 AST 39 H ALT 44 Alkaline Phosphatase 69 Total Protein 6.4 Albumin 3.3 Globulin 3.1 Albumin/Globulin Ratio 1.1 Urine Color Urine Clarity Urine pH Ur Specific [place] Urine Protein Urine Glucose (UA) Urine Ketones Urine Occult Blood Urine Nitrite Urine Bilirubin Urine Urobilinogen Ur Leukocyte Esterase Urine RBC Urine WBC Ur Squamous Epith Cells Urine Bacteria Urine Mucus 12/26/17 12/27/17 12/27/17 11:55 05:36 05:36 WBC 0.7 L* RBC 2.39 L Hgb 6.9 L Hct 20.9 L MCV 87.4 MCH 28.9 MCHC 33.0 RDW 15.5 H RDW Differential 47.4 H Plt Count 97 L MPV 9.7 Immature Gran % (Auto) 0.000 Neut % (Auto) 49.9 Lymph % (Auto) 43.1 H [place] % (Auto) 5.6 Eos % (Auto) 0.0 Baso % (Auto) 1.4 H Absolute Neuts (auto) 0.4 L Absolute Lymphs (auto) 0.31 L Total Counted Not Reportable Neutrophils % (Manual) Lymphocytes % (Manual) Monocytes % (Manual) Basophils % (Manual) Metamyelocytes % Promyelocytes % Differential Comment SCANNED Diff Path Review May foll Platelet Estimate SLT DEC RBC Morphology Microcytosis 2+ Sodium 144 Potassium 4.0 Chloride 109 H Carbon Dioxide 28.0 Anion Gap 7 BUN 10 Creatinine 1.10 Estim Creat Clear Calc 84.62 Est GFR (MDRD) Af Amer 91 Est GFR (MDRD) Non-Af 75 BUN/Creatinine Ratio 9.1 L Glucose 85 Lactic Acid Calcium 7.9 L Total Bilirubin AST ALT Alkaline Phosphatase Total Protein Albumin Globulin Albumin/Globulin Ratio Urine Color Yellow Urine Clarity Clear Urine pH 8.0 Ur Specific [place] 1.010 Urine Protein Negative Urine Glucose (UA) Normal Urine Ketones Negative Urine Occult Blood Negative Urine Nitrite Negative Urine Bilirubin Negative Urine Urobilinogen Normal Ur Leukocyte Esterase Negative Urine RBC 0 SEEN Urine WBC 0 SEEN Ur Squamous Epith Cells 0 SEEN Urine Bacteria 0 SEEN Urine Mucus 0 SEEN Assessment/Plan All Active Problems Neutropenic fever (Acute) Pancytopenia (Acute) Anemia (chronic/acute) Rectal pain and bleeding secondary to rectal fissure (chronic/acute) 52 year old M with PMHx of Follicular lymphoma, grade 1 with complaints of fever ongoing for 1 week after chemotherapy. 1. Neutropenic fever-stable on broad-spectrum antibiotic. - Neutropenic precautions, IV fluids, IV meropenem, IV vancomycin, follow-up on blood culture results - Check MRSA screen by PCR; stop vancomycin if negative. Check previous blood culture result from last week. - Stop allopurinol but continue acyclovir prophylaxis. 2. Rectal bleeding, history of anal fissures, will consult Dr. Qureshi, - continue on hydrocortisone rectal, stool softeners; and topical anesthetic 3. RY, and the patient with normal kidney function, secondary to dehydration- improved. -Continue IV fluids 4. Pancytopenia related to recent chemotherapy, hemoglobin is 6.9 -Type and cross 1 unit LD-RBC & transfuse today. -Low-bacteria diet 5. Lymphoma, stage III/IV-partial response after 4 cycles of chemotherapy. -Follow-up with Dr. Flores after discharge for further treatment. cc: Dr. Ravin Flores; Dr. Michel Qureshi; Dr. Xiomara Glaser
--- NOTE | 2017-12-27 08:20 | PN_ITS ---
Patient Problems: Active and Suspected Problems Neutropenic fever (Acute) Pancytopenia (Acute) Subjective: Patient was seen and examined. He feels better. Has a headache. Denies fever this morning. Tmax 100.6F. Objective: Physical Exam General: Alert, Oriented x3, Cooperative, looks better, not pale, not jaundiced HEENT: Atraumatic, PERRLA, EOMI, Normocephalic Oral: Dry Mucosa Neck: Supple, No JVD, Negative Carotid Bruits Lungs: Clear to auscultation, Normal air movement Cardiovascular: Regular rate, Regular Rhythm, Normal S1, Normal S2, No murmurs Abdomen: Bowel Sounds Present, Soft, Non Tender, Non-Distended, No Hepato- splenomegaly Extremities: No edema Skin: No rashes, No breakdown Musculoskeletal: No Tenderness to Palpation of Joints or Extremities Lymphatic: No Cervical, Supraclavicular, or Inguinal Adenopathy Neurological: Cranial nerves II-XII grossly intact, Neuro grossly intact Psych/Mental Status: Normal Affect, Appropriate Vitals/I&O's: Vital Signs Temp Pulse Resp BP Pulse Ox 99.1 F 76 18 111/69 98 12/27/17 02:08 12/27/17 07:29 12/27/17 02:08 12/27/17 02:08 12/27/17 02:08 Oxygen Delivery Method Room Air Weight: 118.07 kg Body Mass Index (BMI) 36.3 Intake and Output for Last 24 Hours 12/25/17 12/26/17 12/27/17 23:59 23:59 23:59 Intake Total 1215 / 1215 2540 / 2540 Balance 1215 / 1215 2540 / 2540 Laboratory Results 12/26/17 11:50: WBC 1.0 L*, RBC 2.92 L, Hgb 8.2 L, Hct 25.0 L, MCV 85.6, MCH 28.1, MCHC 32.8, RDW 16.2 H, RDW Differential 51.1 H, Plt Count 107 L, MPV 9.9, Neut % (Auto) Not Reportable, Absolute Neuts (auto) 0.5 L, Absolute Lymphs (auto) 0.36 L, Total Counted 50, Neutrophils % (Manual) 54, Lymphocytes % (Manual) 36, Monocytes % (Manual) 2, Basophils % (Manual) 2 H, Metamyelocytes % 2 H, Promyelocytes % 4 H, Diff Path Review May [place], Platelet Estimate SLT DEC, RBC Morphology NORM C+C 12/26/17 11:50: Sodium 140, Potassium 4.0, Chloride 104, Carbon Dioxide 28.0, Anion Gap 8, BUN 10, Creatinine 1.23, Estim Creat Clear Calc 75.67, Est GFR (M DRD) Af Amer 80, Est GFR (MDRD) Non-Af 66, BUN/Creatinine Ratio 8.1 L, Glucose 107 H, Calcium 8.4 L, Total Bilirubin 0.80, AST 39 H, ALT 44, Alkaline Phosphatase 69, Total Protein 6.4, Albumin 3.3, Globulin 3.1, Albumin/Globulin Ratio 1.1 12/26/17 11:50: Lactic Acid 1.4 12/26/17 11:55: Urine Color Yellow, Urine Clarity Clear, Urine pH 8.0, Ur Specific [place] 1.010, Urine Protein Negative, Urine Glucose (UA) Normal, Urine Ketones Negative, Urine Occult Blood Negative, Urine Nitrite Negative, Urine Bilirubin Negative, Urine Urobilinogen Normal, Ur Leukocyte Esterase Negative, Urine RBC 0 SEEN, Urine WBC 0 SEEN, Ur Squamous Epith Cells 0 SEEN, Urine Bacteria 0 SEEN, Urine Mucus 0 SEEN 12/27/17 05:36: WBC 0.7 L*, RBC 2.39 L, Hgb 6.9 L, Hct 20.9 L, MCV 87.4, MCH 28.9, MCHC 33.0, RDW 15.5 H, RDW Differential 47.4 H, Plt Count 97 L, MPV 9.7, Immature Gran % (Auto) 0.000, Neut % (Auto) 49.9, Lymph % (Auto) 43.1 H, [place] % (Auto) 5.6, Eos % (Auto) 0.0, Baso % (Auto) 1.4 H, Absolute Neuts (auto) 0.4 L, Absolute Lymphs (auto) 0.31 L, Total Counted Not Reportable, Differential Comment SCANNED, Diff Path Review May [place], Platelet Estimate SLT DEC, Microcytosis 2+ 12/27/17 05:36: Sodium 144, Potassium 4.0, Chloride 109 H, Carbon Dioxide 28.0, Anion Gap 7, BUN 10, Creatinine 1.10, Estim Creat Clear Calc 84.62, Est GFR (MDRD) Af Amer 91, Est GFR (MDRD) Non-Af 75, BUN/Creatinine Ratio 9.1 L, Glucose 85, Calcium 7.9 L Current Medications Acetaminophen (Tylenol) 650 mg PO Q6H PRN PRN PRN Reason: FEVER Last Admin: 12/27/17 06:22 Dose: 650 mg Hydrocodone Bitart/Acetaminophen ([place] 5mg-325mg) 1 tablet PO Q4H PRN PRN PRN Reason: PAIN Last Admin: 12/27/17 00:09 Dose: 1 tablet Acyclovir (Zovirax) 400 mg PO BID KAILTIN Last Admin: 12/26/17 21:47 Dose: 400 mg Furosemide (Lasix) 40 mg IV X1 ONE Stop: 12/27/17 11:01 Heparin Sodium (Beef Lung) (Heparin 500 Unit/5 Ml (100/Ml)) 500 unit IV UD PRN PRN Reason: HEPARIN FLUSH Meropenem 1 gm/ Sodium (Chloride) 120 mls @ 33 mls/hr IV Q8 [facility] Last Admin: 12/27/17 05:47 Dose: 33 mls/hr Vancomycin HCl 1,750 mg/ (Sodium Chloride) 535 mls @ 250 mls/hr IV Q12H KAITLIN Last Admin: 12/27/17 02:52 Dose: 250 mls/hr Sodium Chloride () 250 mls @ 15 mls/hr IV .[id number] PRN PRN Reason: SALINE FLUSH Last Admin: 12/27/17 06:23 Dose: 15 mls/hr Magnesium Hydroxide (Milk Of Magnesia) 30 ml PO DAILY PRN PRN PRN Reason: Constipation Morphine Sulfate () 1 mg IV Q4H PRN PRN PRN Reason: SEVERE PAIN (6-10/10) Psyllium Hydrophilic Mucilloid (Metamucil) 1 packet PO DAILY PRN PRN PRN Reason: CONSTIPATION Senna/Docusate Sodium (Senokot-S, Verito-Colace) 2 tablet PO BID KAITLIN Last Admin: 12/26/17 21:47 Dose: 2 tablet Sodium Chloride () 10 ml IV UD PRN PRN Reason: VAD FLUSH Last Admin: 12/27/17 05:52 Dose: 10 ml Zolpidem Tartrate (Ambien (Generic)) 5 mg PO QHS PRN PRN PRN Reason: SLEEP Last Admin: 12/27/17 00:06 Dose: 5 mg Medical Necessity - Tobacco Use Smoking Status: Never smoker Tobacco Use: Non-smoker Assessment/Plan All Active Problems Neutropenic fever (Acute) Pancytopenia (Acute) 52 year old M with PMHx of Follicular lymphoma, grade 1, stage 3-4, follows up with Dr. Flores in the outpatient, comes in with complaints of fever ongoing for 1 week. 1. Neutropenic fever, slight worsening WBC count, now 0.7, ANC 400, history of lymphoma, on R-CHOP Previous outpatient blood cultures negative, repeat blood cultures pending, chest x-ray unremarkable, CT of abdomen and pelvis negative for focal source of infection Appreciate oncology consult, remains on IV meropenem and vancomycin, MRSA screen by PCR pending, infectious disease consulted, labs in a.m. 2. Rectal bleeding, history of anal fissures, appreciate general surgery consult, continue on stool softeners, pain control 3. RY, secondary to dehydration, improving with hydration 4. Anemia/pancytopenia related to recent chemotherapy, with a component of hemodilution, hemolobin is 6.9 now, will transfuse 1 unit packed RBC, Lasix 40 mg IV x 1 mcfp through. 5. Lymphoma, stage III/IV, oncology following 6. DVT prophylaxis with SCDs on account of recent rectal bleeding Code Visit Inpatient E&M: 79410 Subs Hosp L2
[2017-12-27] MEDS: Senna/Docusate Sodium 1 Tablet 2 TABLET PO ×2 (09:27→22:17)
[2017-12-27] MEDS: Acyclovir 200 MG Capsule 400 MG PO ×2 (09:27→22:16)
[2017-12-27 10:30] LABS: M R Staph aureus DNA By PCR Negative (Negative); Probe Check PASS; Specimen Processing Control PASS
--- NOTE | 2017-12-27 11:29 | CASEMGMT ---
TIM GLASGOW INITIAL REVIEW ASSESSMENT D/C PLAN: Home Face to Face with patient for initial transition planning/care coordination assessment. TIM GLASGOW introduced self and role at [facility]. Pt resting in bed, at bedside. Care providers, pharmacy, and demographics verified. See link attached. Pt wishes to return home on D/C. Pt states he is independent w/ambulation and requires no DME. and pt co-manage household tasks. PCP: Dr Ward Specialists: Dr Flores. Dr Qureshi Preferred Pharmacy: [facility]. [facility] Retail on day of discharge only. Insurance: [employer] Living Will/HPOA: Does not have either and declines any further information. LNOK: , Mattie Living Arrangements: Lives with , daughter, and grandson. Transportation: Pt drives DME/HHC: Denies using any DME or having any needs. States has never used HHC in past and denies needs. Pt and deny having any questions or needs. CM to follow for any further discharge planning needs that may arise. Judy PETERSON RN, CM
--- NOTE | 2017-12-27 11:32 | PCM.HP.ID ---
Problem List (1) Neutropenic fever Status: Acute Reason for Consult: neutropenic fever Consulted by: Dr. Glaser History of Present Illness: The patient is a 52 year old M with lymphoma, on RCHOP via R chest port who presented to ED with one week of fever, chills, shakes. Having significant pain and some bleeding from anal fissure. No abd pain. No problems with port site. Some mild headache. Diffuse body aches with fevers. Went to ED, given levaquin with no improvement. Has been on acyclovir prophylaxis. No cough, congestion, mouth sores. Admitted, started on vanc/meropenem. Surgery and onc following. Feeling better this AM. Full ROS performed and neg except as noted above. - Medical History Past Medical History (Chronic Problems): Chronic Problems Lymphoma (Chronic) Anal fissure (Chronic) Allergies/Adverse Reactions: Allergies No Known Allergies Allergy (Verified 12/22/17 06:26) Home Medications: Ambulatory Orders Medication Instructions Recorded Acyclovir 400 mg PO BID 12/22/17 Allopurinol 300 mg PO DAILY 12/22/17 Dibucaine 1 applic TOPICAL TID PRN PRN 12/22/17 Hydrocodone/Acetaminophen [Doswell 1 ea PO Q4H PRN PRN #20 tab 12/22/17 5-325 Tablet] Ibuprofen 400 mg PO Q8H PRN 12/22/17 Ondansetron [Zofran Odt] 8 mg PO Q8H PRN PRN 12/22/17 Oxycodone HCl/Acetaminophen 1 tablet PO Q4H PRN PRN 12/22/17 [Percocet 5/325] levoFLOXacin tablet [Levaquin 750 mg PO DAILY #6 tab 12/22/17 tablet] Vital Signs Temp Pulse Resp BP Pulse Ox 99.5 F H 76 16 104/63 96 12/27/17 11:12 12/27/17 11:12 12/27/17 11:12 12/27/17 11:12 12/27/17 11:12 Oxygen Delivery Method Room Air Weight: 118.07 kg Body Mass Index (BMI) 36.3 Microbiology Past 72 Hours 12/26/17 11:55 Urine Culture - Preliminary Urine, Clean Catch Culture exhibits no growth. Laboratory Tests Past 24 Hrs 12/26/17 12/26/17 12/26/17 11:50 11:50 11:50 WBC 1.0 L* RBC 2.92 L Hgb 8.2 L Hct 25.0 L MCV 85.6 MCH 28.1 MCHC 32.8 RDW 16.2 H RDW Differential 51.1 H Plt Count 107 L MPV 9.9 Immature Gran % (Auto) Neut % (Auto) Not Reportable Lymph % (Auto) [place] % (Auto) Eos % (Auto) Baso % (Auto) Absolute Neuts (auto) 0.5 L Absolute Lymphs (auto) 0.36 L Total Counted 50 Neutrophils % (Manual) 54 Lymphocytes % (Manual) 36 Monocytes % (Manual) 2 Basophils % (Manual) 2 H Metamyelocytes % 2 H Promyelocytes % 4 H Differential Comment Diff Path Review May foll Platelet Estimate SLT DEC RBC Morphology NORM C+C Microcytosis Sodium 140 Potassium 4.0 Chloride 104 Carbon Dioxide 28.0 Anion Gap 8 BUN 10 Creatinine 1.23 Estim Creat Clear Calc 75.67 Est GFR (MDRD) Af Amer 80 Est GFR (MDRD) Non-Af 66 BUN/Creatinine Ratio 8.1 L Glucose 107 H Lactic Acid 1.4 Calcium 8.4 L Total Bilirubin 0.80 AST 39 H ALT 44 Alkaline Phosphatase 69 Total Protein 6.4 Albumin 3.3 Globulin 3.1 Albumin/Globulin Ratio 1.1 Urine Color Urine Clarity Urine pH Ur Specific [place] Urine Protein Urine Glucose (UA) Urine Ketones Urine Occult Blood Urine Nitrite Urine Bilirubin Urine Urobilinogen Ur Leukocyte Esterase Urine RBC Urine WBC Ur Squamous Epith Cells Urine Bacteria Urine Mucus MRSA (PCR) Blood Type Antibody Screen Crossmatch 12/26/17 12/27/17 12/27/17 11:55 05:36 05:36 WBC 0.7 L* RBC 2.39 L Hgb 6.9 L Hct 20.9 L MCV 87.4 MCH 28.9 MCHC 33.0 RDW 15.5 H RDW Differential 47.4 H Plt Count 97 L MPV 9.7 Immature Gran % (Auto) 0.000 Neut % (Auto) 49.9 Lymph % (Auto) 43.1 H [place] % (Auto) 5.6 Eos % (Auto) 0.0 Baso % (Auto) 1.4 H Absolute Neuts (auto) 0.4 L Absolute Lymphs (auto) 0.31 L Total Counted Not Reportable Neutrophils % (Manual) Lymphocytes % (Manual) Monocytes % (Manual) Basophils % (Manual) Metamyelocytes % Promyelocytes % Differential Comment SCANNED Diff Path Review May foll Platelet Estimate SLT DEC RBC Morphology Microcytosis 2+ Sodium 144 Potassium 4.0 Chloride 109 H Carbon Dioxide 28.0 Anion Gap 7 BUN 10 Creatinine 1.10 Estim Creat Clear Calc 84.62 Est GFR (MDRD) Af Amer 91 Est GFR (MDRD) Non-Af 75 BUN/Creatinine Ratio 9.1 L Glucose 85 Lactic Acid Calcium 7.9 L Total Bilirubin AST ALT Alkaline Phosphatase Total Protein Albumin Globulin Albumin/Globulin Ratio Urine Color Yellow Urine Clarity Clear Urine pH 8.0 Ur Specific [place] 1.010 Urine Protein Negative Urine Glucose (UA) Normal Urine Ketones Negative Urine Occult Blood Negative Urine Nitrite Negative Urine Bilirubin Negative Urine Urobilinogen Normal Ur Leukocyte Esterase Negative Urine RBC 0 SEEN Urine WBC 0 SEEN Ur Squamous Epith Cells 0 SEEN Urine Bacteria 0 SEEN Urine Mucus 0 SEEN MRSA (PCR) Blood Type Antibody Screen Crossmatch 12/27/17 12/27/17 08:15 08:15 WBC RBC Hgb Hct MCV MCH MCHC RDW RDW Differential Plt Count MPV Immature Gran % (Auto) Neut % (Auto) Lymph % (Auto) [place] % (Auto) Eos % (Auto) Baso % (Auto) Absolute Neuts (auto) Absolute Lymphs (auto) Total Counted Neutrophils % (Manual) Lymphocytes % (Manual) Monocytes % (Manual) Basophils % (Manual) Metamyelocytes % Promyelocytes % Differential Comment Diff Path Review Platelet Estimate RBC Morphology Microcytosis Sodium Potassium Chloride Carbon Dioxide Anion Gap BUN Creatinine Estim Creat Clear Calc Est GFR (MDRD) Af Amer Est GFR (MDRD) Non-Af BUN/Creatinine Ratio Glucose Lactic Acid Calcium Total Bilirubin AST ALT Alkaline Phosphatase Total Protein Albumin Globulin Albumin/Globulin Ratio Urine Color Urine Clarity Urine pH Ur Specific [place] Urine Protein Urine Glucose (UA) Urine Ketones Urine Occult Blood Urine Nitrite Urine Bilirubin Urine Urobilinogen Ur Leukocyte Esterase Urine RBC Urine WBC Ur Squamous Epith Cells Urine Bacteria Urine Mucus MRSA (PCR) Negative Blood Type B POSITIVE Antibody Screen NEGATIVE Crossmatch See Detail - Other Studies Radiology: [] Other Studies: [] Route of nutrition/ use of supplements: [] Nutritional Intake: [] IV Site: [] Ordonez Catheter: [] - Assessment/Plan Antibiotics: [] Assessment/Plan: [] Active and Suspected Problems Neutropenic fever (Acute) Pancytopenia (Acute)
[2017-12-27] MEDS: Furosemide 40 MG/4 ML Vial IV (12:18)
[2017-12-27] MEDS: Ibuprofen 400 MG Tablet PO (13:08)
[2017-12-27 13:30] LABS: Pathologist Review Reviewed
[2017-12-27 13:33] LABS: Pathologist Review Reviewed
[2017-12-27] MEDS: traMADol 50 MG Tablet PO (13:36)
--- NOTE | 2017-12-27 20:21 | PN.SURG_ITS ---
Patient Problems: Active and Suspected Problems Neutropenic fever (Acute) Pancytopenia (Acute) Subjective: significant anal pain. Did have 2 bowel movements today. - Physical Exam General: Alert, Oriented x3 Vital Signs Temp Pulse Resp BP Pulse Ox 99.1 F 80 20 H 138/69 H 99 12/27/17 20:13 12/27/17 20:13 12/27/17 20:13 12/27/17 20:13 12/27/17 20:13 Oxygen Delivery Method Room Air Weight: 118.07 kg Body Mass Index (BMI) 36.3 Intake and Output for Last 24 Hours 12/25/17 12/26/17 12/27/17 23:59 23:59 23:59 Intake Total 1215 / 1215 4140 / 4140 Balance 1215 / 1215 4140 / 4140 Microbiology Past 72 Hours 12/26/17 11:55 Urine Culture - Preliminary Urine, Clean Catch Culture exhibits no growth. Laboratory Tests Past 24 Hrs 12/26/17 12/27/17 12/27/17 11:50 05:36 05:36 WBC 0.7 L* RBC 2.39 L Hgb 6.9 L Hct 20.9 L MCV 87.4 MCH 28.9 MCHC 33.0 RDW 15.5 H RDW Differential 47.4 H Plt Count 97 L MPV 9.7 Immature Gran % (Auto) 0.000 Neut % (Auto) 49.9 Lymph % (Auto) 43.1 H [place] % (Auto) 5.6 Eos % (Auto) 0.0 Baso % (Auto) 1.4 H Absolute Neuts (auto) 0.4 L Absolute Lymphs (auto) 0.31 L Total Counted Not Reportable Differential Comment SCANNED Diff Path Review Reviewed Reviewed Platelet Estimate SLT DEC Microcytosis 2+ Sodium 144 Potassium 4.0 Chloride 109 H Carbon Dioxide 28.0 Anion Gap 7 BUN 10 Creatinine 1.10 Estim Creat Clear Calc 84.62 Est GFR (MDRD) Af Amer 91 Est GFR (MDRD) Non-Af 75 BUN/Creatinine Ratio 9.1 L Glucose 85 Calcium 7.9 L MRSA (PCR) Blood Type Antibody Screen Crossmatch 12/27/17 12/27/17 08:15 08:15 WBC RBC Hgb Hct MCV MCH MCHC RDW RDW Differential Plt Count MPV Immature Gran % (Auto) Neut % (Auto) Lymph % (Auto) [place] % (Auto) Eos % (Auto) Baso % (Auto) Absolute Neuts (auto) Absolute Lymphs (auto) Total Counted Differential Comment Diff Path Review Platelet Estimate Microcytosis Sodium Potassium Chloride Carbon Dioxide Anion Gap BUN Creatinine Estim Creat Clear Calc Est GFR (MDRD) Af Amer Est GFR (MDRD) Non-Af BUN/Creatinine Ratio Glucose Calcium MRSA (PCR) Negative Blood Type B POSITIVE Antibody Screen NEGATIVE Crossmatch See Detail Medical Necessity - Tobacco Use Smoking Status: Never smoker Tobacco Use: Non-smoker Assessment/Plan All Active Problems Neutropenic fever (Acute) Pancytopenia (Acute) anal pain and bleeding-clinically and by history anal fissure-neutropenic fever secondary to treatment for lymphoma. spoke with Ramiro Bowman-had a colorectal surgery at [facility]. He agreed that we would not recommend surgical intervention or other more aggressive maneuvers. At this time. We did concerned about the possibility of Botox injections. Did feel that trying to change from Cardizem ointment to nifedipine ointment may improve symptoms. I recommended they obtain [id number] pramoxine to see if this provides improved relief compared to the Dibucaine ointment. I would not consider lateral internal sphincterotomy while he is in the course of his treatments. I reviewed the CT scan. I did not see any significant pelvic or perianal collections that would make me worry about pelvic abscess.
[2017-12-28] VITALS (13 sets, daily range): BP systolic 105–126; BP diastolic 58–81; PULSE 68–87; RESP 16–18; TEMP 36.6–39.4; O2SAT 94–99
[2017-12-28 01:40] LABS: Vancomycin, Trough Level 14.5 ug/mL (5.0-15.0)
[2017-12-28] MEDS: Acetaminophen 325 MG Tablet 650 MG PO ×3 (02:36→20:20)
[2017-12-28 03:42] LABS: Absolute Lymphocyte Count 0.35 X10^3/ul (0.83-4.51); Absolute Neutrophil Count 0.2 X10^3/uL (2.0-7.7); Basophil# 0.01 X10^3/uL; Basophil% 1.6 % (0-1); Hematocrit 23.8 % (40-54); Hemoglobin 8.2 g/dl (13.0-16.5); Lymphocyte # 0.35 X10^3/ul (4.0); Lymphocyte % 54.7 % (19-41); Mean Corp Hgb Conc 34.5 g/gl (32-36); Mean Corpuscular Hgb 29.4 pg (27.0-32.0); Mean Corpuscular Volume 85.3 fL (80-94); Mean Platelet Vol. 9.5 fl (6.2-12.0); Monocyte# 0.05 X10^3/uL; Monocyte% 7.8 % (0-10); Neutrophil # 0.23 X10^3/uL (2.7-7.7); Neutrophil % 35.9 % (47-70); Platelet Count 115 K/mm3 (150-450); RBC Distribution Width CV 14.7 % (11.6-14.6); RBC Distribution Width SD 44.5 fl (35.1-43.9); Red Blood Count 2.79 M/mm3 (4.6-6.2)
[2017-12-28 03:45] LABS: Differential Indicated SCAN CRITERIA MET; POSITIVE COUNT YES; POSITIVE DIFFERENTIAL YES; POSITIVE MORPHOLOGY YES; White Blood Count 0.6 K/mm3 (4.4-11.0)
[2017-12-28 03:56] LABS: Anion Gap 6 (5-15); BUN 11 mg/dL (7-18); BUN/Creat Ratio 10.2 RATIO (10-20); Calcium,Total 8.2 mg/dL (8.5-10.1); Chloride 102 mmol/L (98-107); Creatinine, Serum 1.08 mg/dL (0.70-1.30); EST Glomerular Filtration Rate 77 mL/min (>60); Est Glom Filt Rate - Afr Amer 93 mL/min (>60); Estimated Creatinine Clearance 86.18 ml/min; Glucose 97 mg/dL (74-106); Potassium 3.7 mmol/L (3.5-5.1); Sodium Level 138 mmol/L (136-145)
[2017-12-28 04:04] LABS: Differential Comment SCANNED; Microcytosis 2+
[2017-12-28] MEDS: 0.9% NaCl VAD Flush 10 ML IV (05:50)
--- NOTE | 2017-12-28 06:07 | PCM.RX.CS ---
Consult Pharmacy has been consulted to manage selected antiobiotic: Vancomycin Type of Consult: Follow-up Suspected Infection: Other Labs: Sodium 138 mmol/L (136-145) 12/28/17 03:25 Potassium 3.7 mmol/L (3.5-5.1) 12/28/17 03:25 Chloride 102 mmol/L (98-107) 12/28/17 03:25 Carbon Dioxide 30.0 mmol/L (21.0-32.0) 12/28/17 03:25 Anion Gap 6 (5-15) 12/28/17 03:25 BUN 11 mg/dL (7-18) 12/28/17 03:25 Creatinine 1.08 mg/dL (0.70-1.30) 12/28/17 03:25 Est GFR (MDRD) Af Amer 93 mL/min (>60) 12/28/17 03:25 Est GFR (MDRD) Non-Af 77 mL/min (>60) 12/28/17 03:25 BUN/Creatinine Ratio 10.2 RATIO (10-20) 12/28/17 03:25 Glucose 97 mg/dL (74-106) 12/28/17 03:25 Vancomycin Trough 14.5 ug/mL (5.0-15.0) 12/28/17 01:15 Microbiology: Microbiology 12/26/17 11:55 Urine, Clean Catch Urine Culture - Preliminary Culture exhibits no growth. Goal Trough: 15-20 mcg/mL Pharmacy Plan for Drug Dosing: Pharmacy Service will continue to monitor and adjust dosing as required. TROUGH 14.5 NO CHANGES RECOMENDED REDRAW LABS ON 01/01 Follow-Up Labs: Trough Vancomycin Labs to be done on [date and time ordered]: 01/01 @ 4706
[2017-12-28] MEDS: HYDROcodone Bitartrate/Apap 5/325 Tablet PO (06:41)
--- NOTE | 2017-12-28 07:57 | PCM.PN.HOSP ---
Patient Problems: Active and Suspected Problems Neutropenic fever (Acute) Pancytopenia (Acute) Subjective: Patient was seen and examined. Complains of spikes in temperature last night, which shivering. Complains of severe pain in the anal region. Changes have been made to his topical cream to the ano-rectal region. Denies any dizziness or palpitations or chest pain. Objective: Physical Exam General: Alert, Oriented x3, Cooperative, looks better, not pale, not jaundiced HEENT: Atraumatic, PERRLA, EOMI, Normocephalic Oral: Dry Mucosa Neck: Supple, No JVD, Negative Carotid Bruits Lungs: Clear to auscultation, Normal air movement Cardiovascular: Regular rate, Regular Rhythm, Normal S1, Normal S2, No murmurs Abdomen: Bowel Sounds Present, Soft, Non Tender, Non-Distended, No Hepato-splenomegaly Extremities: No edema Skin: No rashes, No breakdown Musculoskeletal: No Tenderness to Palpation of Joints or Extremities Lymphatic: No Cervical, Supraclavicular, or Inguinal Adenopathy Neurological: Cranial nerves II-XII grossly intact, Neuro grossly intact Psych/Mental Status: Normal Affect, Appropriate Vitals/I&O's: Vital Signs Temp Pulse Resp BP Pulse Ox 100.6 F H 80 16 119/72 97 12/28/17 05:56 12/28/17 06:00 12/28/17 02:23 12/28/17 02:23 12/28/17 02:23 Oxygen Delivery Method Room Air Weight: 118.07 kg Body Mass Index (BMI) 36.3 Intake and Output for Last 24 Hours 12/26/17 12/27/17 12/28/17 23:59 23:59 23:59 Intake Total 1215 / 1215 4140 / 4140 3300 / 3300 Balance 1215 / 1215 4140 / 4140 3300 / 3300 Microbiology Past 72 Hours 12/27/17 15:10 Mucosa - Nose Respiratory Panel (PCR) - Final 12/26/17 11:55 Urine, Clean Catch Urine Culture - Preliminary Culture exhibits no growth. Laboratory Results 12/26/17 11:50: Diff Path Review Reviewed 12/27/17 05:36: Diff Path Review Reviewed 12/27/17 08:15: MRSA (PCR) Negative 12/27/17 08:15: Blood Type B POSITIVE, Antibody Screen NEGATIVE, Crossmatch See Detail 12/28/17 01:15: Vancomycin Trough 14.5 12/28/17 03:25: WBC 0.6 L*, RBC 2.79 L, Hgb 8.2 L, Hct 23.8 L, MCV 85.3, MCH 29.4, MCHC 34.5, RDW 14.7 H, RDW Differential 44.5 H, Plt Count 115 L, MPV 9.5, Immature Gran % (Auto) 0.000, Neut % (Auto) 35.9 L, Lymph % (Auto) 54.7 H, [place] % (Auto) 7.8, Eos % (Auto) 0.0, Baso % (Auto) 1.6 H, Absolute Neuts (auto) 0.2 L, Absolute Lymphs (auto) 0.35 L, Total Counted Not Reportable, Differential Comment SCANNED, Diff Path Review May foll, Microcytosis 2+ 12/28/17 03:25: Sodium 138, Potassium 3.7, Chloride 102, Carbon Dioxide 30.0, Anion Gap 6, BUN 11, Creatinine 1.08, Estim Creat Clear Calc 86.18, Est GFR (MDRD) Af Amer 93, Est GFR (MDRD) Non-Af 77, BUN/Creatinine Ratio 10.2, Glucose 97, Calcium 8.2 L Current Medications Acetaminophen (Tylenol) 650 mg PO Q6H PRN PRN PRN Reason: FEVER Last Admin: 12/28/17 02:36 Dose: 650 mg Hydrocodone Bitart/Acetaminophen ([place] 5mg-325mg) 1 tablet PO Q4H PRN PRN PRN Reason: PAIN Last Admin: 12/28/17 06:41 Dose: 1 tablet Acyclovir (Zovirax) 400 mg PO BID [facility] Last Admin: 12/27/17 22:16 Dose: 400 mg Nifedipine 120 mg/ Petrolatum (60 gm) 0 mg TOPICAL 4X/DAY [facility] Last Admin: 12/27/17 22:21 Dose: 1 apply Heparin Sodium (Beef Lung) (Heparin 500 Unit/5 Ml (100/Ml)) 500 unit IV UD PRN PRN Reason: HEPARIN FLUSH Hyoscyamine Sulfate (Levsinex) 0.375 mg PO Q12 [facility] Last Admin: 12/27/17 22:16 Dose: 0.3749 mg Meropenem 1 gm/ Sodium (Chloride) 120 mls @ 33 mls/hr IV Q8 [facility] Last Admin: 12/28/17 05:50 Dose: 33 mls/hr Vancomycin HCl 1,750 mg/ (Sodium Chloride) 535 mls @ 250 mls/hr IV Q12H [facility] Last Admin: 12/28/17 02:36 Dose: 250 mls/hr Sodium Chloride () 250 mls @ 15 mls/hr IV .[id number] PRN PRN Reason: SALINE FLUSH Last Admin: 12/27/17 06:23 Dose: 15 mls/hr Magnesium Hydroxide (Milk Of Magnesia) 30 ml PO DAILY PRN PRN PRN Reason: Constipation Morphine Sulfate () 1 mg IV Q4H PRN PRN PRN Reason: SEVERE PAIN (-01/04) Nutritional Formula (Lactose Free) (Ensure Enlive) 120 ml PO 4X/DAY [facility] Last Admin: 12/27/17 22:10 Dose: Not Given Psyllium Hydrophilic Mucilloid (Metamucil) 1 packet PO DAILY PRN PRN PRN Reason: CONSTIPATION Senna/Docusate Sodium (Senokot-S, Verito-Colace) 2 tablet PO BID [facility] Last Admin: 12/27/17 22:17 Dose: 2 tablet Sodium Chloride () 10 ml IV UD PRN PRN Reason: VAD FLUSH Last Admin: 12/28/17 05:50 Dose: 10 ml Tbo-Filgrastim (Granix) 480 mcg SC DAILY [facility] Zolpidem Tartrate (Ambien (Generic)) 5 mg PO QHS PRN PRN PRN Reason: SLEEP Last Admin: 12/27/17 22:18 Dose: 5 mg Medical Necessity - Tobacco Use Smoking Status: Never smoker Tobacco Use: Non-smoker Assessment/Plan All Active Problems Neutropenic fever (Acute) Pancytopenia (Acute) 52 year old M with PMHx of Follicular lymphoma, grade 1, stage 3-4, follows up with Dr. Flores in the outpatient, comes in with complaints of fever ongoing for 1 week. 1. Neutropenic fever, slight worsening WBC count, now 0.6, ANC 200, history of lymphoma, s/p R-CHOP Previous outpatient blood cultures negative, repeat blood cultures pending, chest x-ray unremarkable, CT of abdomen and pelvis negative for focal source of infection on IV meropenem and vancomycin, MRSA screen by PCR negative, infectious disease consulted, labs in a.m. 2. Rectal bleeding, history of anal fissures, general surgery consulted, continue on stool softeners, changes made to topical cream, will add Tucks pad/witchhazel for symptomatic relief 3. RY, secondary to dehydration, resolved 4. Anemia/pancytopenia related to recent chemotherapy, with a component of hemodilution, status post 1 unit packed RBC, hemoglobin improved to 8.2. 5. Lymphoma, stage III/IV, oncology following 6. DVT prophylaxis with SCDs on account of recent rectal bleeding Code Visit Inpatient E&M: 70870 Subs Hosp L2
[2017-12-28] MEDS: Senna/Docusate Sodium 1 Tablet 2 TABLET PO ×2 (10:30→22:20)
[2017-12-28] MEDS: Acyclovir 200 MG Capsule 400 MG PO ×2 (10:30→22:20)
[2017-12-28] MEDS: TBO-FILGRASTIM 480 MCG/0.8 ML ML SC (10:31)
[2017-12-28] MEDS: oxyCODONE 5 MG Tablet PO ×3 (10:31→22:25)
[2017-12-28 13:08] LABS: Pathologist Review Reviewed
--- NOTE | 2017-12-28 13:39 | PN.ID_ITS ---
Patient Problems: Active and Suspected Problems Neutropenic fever (Acute) Pancytopenia (Acute) Subjective: Fevers, chills, headache overnight. Not feeling any better. Continued rectal pain. - Physical Exam General: Alert, Cooperative, No apparent distress Lungs: Clear to auscultation, Normal air movement Cardiovascular: Regular rate, Regular Rhythm Abdomen: Soft, Non Tender, Non-Distended Skin: No rashes Vital Signs Temp Pulse Resp BP Pulse Ox 99.9 F H 83 18 126/81 H 98 12/28/17 10:29 12/28/17 10:32 12/28/17 10:29 12/28/17 10:29 12/28/17 10:29 Oxygen Delivery Method Room Air Weight: 118.07 kg Body Mass Index (BMI) 36.3 Intake and Output for Last 24 Hours 12/26/17 12/27/17 12/28/17 23:59 23:59 23:59 Intake Total 1215 / 1215 4140 / 4140 3300 / 3300 Balance 1215 / 1215 4140 / 4140 3300 / 3300 Microbiology Past 72 Hours 12/26/17 11:55 Urine Culture - Final Urine, Clean Catch Culture exhibits no growth. 12/27/17 15:10 Respiratory Panel (PCR) - Final Mucosa - Nose Laboratory Tests Past 24 Hrs 12/28/17 12/28/17 12/28/17 01:15 03:25 03:25 WBC 0.6 L* RBC 2.79 L Hgb 8.2 L Hct 23.8 L MCV 85.3 MCH 29.4 MCHC 34.5 RDW 14.7 H RDW Differential 44.5 H Plt Count 115 L MPV 9.5 Immature Gran % (Auto) 0.000 Neut % (Auto) 35.9 L Lymph % (Auto) 54.7 H [place] % (Auto) 7.8 Eos % (Auto) 0.0 Baso % (Auto) 1.6 H Absolute Neuts (auto) 0.2 L Absolute Lymphs (auto) 0.35 L Total Counted Not Reportable Differential Comment SCANNED Diff Path Review Reviewed Microcytosis 2+ Sodium 138 Potassium 3.7 Chloride 102 Carbon Dioxide 30.0 Anion Gap 6 BUN 11 Creatinine 1.08 Estim Creat Clear Calc 86.18 Est GFR (MDRD) Af Amer 93 Est GFR (MDRD) Non-Af 77 BUN/Creatinine Ratio 10.2 Glucose 97 Calcium 8.2 L Vancomycin Trough 14.5 Medical Necessity - Tobacco Use Smoking Status: Never smoker Tobacco Use: Non-smoker Route of nutrition/ use of supplements: [] Nutritional Intake: [] IV Site: [] Ordonez Catheter: [] - Assessment/Plan Antibiotics: [] Assessment/Plan: [] Active and Suspected Problems Neutropenic fever (Acute) Pancytopenia (Acute) Neutropenic fever with anal fissure - continued fever and low ANC. Bcx neg so far. Resp viral panel was neg. Continue vanc and meropenem. Surgery and oncology following. Will follow.
[2017-12-28] MEDS: Ibuprofen 400 MG Tablet PO (17:56)
[2017-12-28] MEDS: Zolpidem Tartrate 5 MG Tablet PO (22:25)
[2017-12-29] MEDS: 0.9% NaCl VAD Flush 10 ML IV ×2 (06:10→06:12)
[2017-12-29] MEDS: Acetaminophen 325 MG Tablet 650 MG PO ×3 (06:14→18:22)
[2017-12-29 06:20] VITALS: TEMP 37.5
[2017-12-29 06:33] LABS: Absolute Lymphocyte Count 0.48 X10^3/ul (0.83-4.51); Absolute Neutrophil Count 0.5 X10^3/uL (2.0-7.7); Basophil# 0.01 X10^3/uL; Basophil% 0.9 % (0-1); Hematocrit 26.9 % (40-54); Hemoglobin 9.1 g/dl (13.0-16.5); Lymphocyte # 0.48 X10^3/ul (4.0); Lymphocyte % 42.5 % (19-41); Mean Corp Hgb Conc 33.8 g/gl (32-36); Mean Corpuscular Hgb 28.5 pg (27.0-32.0); Mean Corpuscular Volume 84.3 fL (80-94); Mean Platelet Vol. 10.3 fl (6.2-12.0); Monocyte# 0.11 X10^3/uL; Monocyte% 9.7 % (0-10); Neutrophil # 0.53 X10^3/uL (2.7-7.7); Neutrophil % 46.9 % (47-70); Platelet Count 115 K/mm3 (150-450); RBC Distribution Width CV 15.3 % (11.6-14.6); RBC Distribution Width SD 48.1 fl (35.1-43.9); Red Blood Count 3.19 M/mm3 (4.6-6.2)
[2017-12-29 06:39] LABS: Anion Gap 7 (5-15); BUN 11 mg/dL (7-18); BUN/Creat Ratio 12.8 RATIO (10-20); Calcium,Total 8.3 mg/dL (8.5-10.1); Chloride 106 mmol/L (98-107); Creatinine, Serum 0.86 mg/dL (0.70-1.30); EST Glomerular Filtration Rate 100 mL/min (>60); Est Glom Filt Rate - Afr Amer 121 mL/min (>60); Estimated Creatinine Clearance 108.23 ml/min; Glucose 88 mg/dL (74-106); Potassium 4.2 mmol/L (3.5-5.1); Sodium Level 142 mmol/L (136-145)
[2017-12-29 06:41] LABS: Differential Indicated SCAN CRITERIA MET; POSITIVE COUNT YES; POSITIVE DIFFERENTIAL YES; POSITIVE MORPHOLOGY YES; White Blood Count 1.1 K/mm3 (4.4-11.0)
--- NOTE | 2017-12-29 06:42 | NURSING ---
critical result received for lab. WBC 1.1. Primary nurse TIM Hagen notified
[2017-12-29 06:54] LABS: Differential Comment SCANNED
--- NOTE | 2017-12-29 07:44 | PCM.PN.BLA ---
Progress Note Hematology oncology progress note: Patient is feeling better. He still has rectal pain with bowel movement. No nausea or vomiting or diarrhea. Intermittent fever. Denies cough or shortness of breath. Physical exam: Abdomen: Soft nontender, no hepatosplenomegaly. Vital Signs - 24 hr Temp Pulse Resp BP Pulse Ox 12/29/17 06:20 99.5 F H 12/28/17 22:30 97.9 F 12/28/17 22:00 99.3 F H 68 16 105/60 97 12/28/17 17:50 100.4 F H 72 18 112/61 99 12/28/17 15:21 100.8 F H 12/28/17 14:05 102.1 F H 80 18 123/58 H 94 12/28/17 10:32 83 12/28/17 10:29 99.9 F H 81 18 126/81 H 98 Laboratory Results - last 24 hr 12/28/17 12/29/17 12/29/17 03:25 06:05 06:05 WBC 1.1 L* RBC 3.19 L Hgb 9.1 L Hct 26.9 L MCV 84.3 MCH 28.5 MCHC 33.8 RDW 15.3 H RDW Differential 48.1 H Plt Count 115 L MPV 10.3 Immature Gran % (Auto) 0.000 Neut % (Auto) 46.9 L Lymph % (Auto) 42.5 H [place] % (Auto) 9.7 Eos % (Auto) 0.0 Baso % (Auto) 0.9 Absolute Neuts (auto) 0.5 L Absolute Lymphs (auto) 0.48 L Total Counted Not Reportable Differential Comment SCANNED Diff Path Review Reviewed July foll Sodium 142 Potassium 4.2 Chloride 106 Carbon Dioxide 29.0 Anion Gap 7 BUN 11 Creatinine 0.86 Estim Creat Clear Calc 108.23 Est GFR (MDRD) Af Amer 121 Est GFR (MDRD) Non-Af 100 BUN/Creatinine Ratio 12.8 Glucose 88 Calcium 8.3 L Impression/Plan: 1) neutropenic fever-all cultures are negative. -Continue meropenem and vancomycin. -Continue Granix until ANC > 1000 -Anticipate fever to resolve once neutropenia resolve; probably will go home this weekend. 2) rectal bleeding and rectal fissure- source of infection. -Continue conservative therapy with topical anesthetic and stool softener. -Wait until he is completed chemotherapy before option. -Wash and sitz bath during chemotherapy treatment to decrease risks of infection. 3) follicular lymphoma- partial response after 4 cycles of chemotherapy -Follow up with Dr. Flores next week -Will likely decrease dose of chemotherapy with subsequent cycle of chemotherapy because of neutropenia. cc: Dr. Ravin Flores; Dr. Michel Qureshi; Dr. Xiomara Glaser
[2017-12-29] MEDS: TBO-FILGRASTIM 480 MCG/0.8 ML ML SC (08:43)
[2017-12-29] MEDS: Ibuprofen 400 MG Tablet PO ×2 (08:43→21:21)
[2017-12-29] MEDS: Acyclovir 200 MG Capsule 400 MG PO ×2 (08:44→21:21)
[2017-12-29] MEDS: Senna/Docusate Sodium 1 Tablet 2 TABLET PO (08:44)
--- NOTE | 2017-12-29 09:48 | PCM.PN.HOSP ---
Patient Problems: Active and Suspected Problems Neutropenic fever (Acute) Pancytopenia (Acute) Subjective: Patient with no acute events overnight per self and per nursing report. He still did have elevated temperatures and has repeat blood culture from 12/28/17 pending. Patient notes feeling improved since initial presentation, less fatigued and has been up in the halls walking. Discussed plan of care including continued Granix administration until ANC appropriate with at that time discharge to home likely on continued oral Levaquin and oral Flagyl regimen given negative cultures thus far with 3 additional days of treatment per ID recommendation to which patient is amenable. Patient denies fevers, chills, nausea, emesis, abdominal pain, chest pain or dyspnea. Objective: Physical Examination: General: awake, alert, oriented x 3 and cooperative, seated upright in bed in no apparent distress. Skin: normal color, turgor, no icterus, cyanosis. HEENT: AT/NC, EOMI, PERRLA, MMM. Lungs: CTA bilaterally, moderate effort, mild decrease BL bases, no rales, ronchi or wheezing. Heart: Regular rate and rhythm; no gallop, rub audible, right chest port in place. Abdomen: soft, obese, NTTP, ND, normal BS. Extremities: no cyanosis, clubbing, or edema. Neurological: patient awake, alert, oriented x 3; cognitive function intact; pupils equally reactive to light and accomodation; cranial nerves II-XII grossly normal, moving all 4 extremities, no focal deficits, strength improving, mildly to moderately globally decreased. Psychiatric: affect appears normal, no acute evidence of depressive or anxiety feelings. Vitals/I&O's: Vital Signs Temp Pulse Resp BP Pulse Ox 99.5 F H 68 16 105/60 97 12/29/17 06:20 12/28/17 22:00 12/28/17 22:00 12/28/17 22:00 12/28/17 22:00 Oxygen Delivery Method Room Air Weight: 260 lb 4.796 oz Body Mass Index (BMI) 36.3 Intake and Output for Last 24 Hours 12/27/17 12/28/17 12/29/17 23:59 23:59 23:59 Intake Total 4140 / 4140 5108 / 5108 910 / 910 Balance 4140 / 4140 5108 / 5108 910 / 910 Microbiology Past 72 Hours 10/03/18 03:18 Blood Culture (Wb) - Anticubital Right Blood Culture - Preliminary 12/26/17 11:52 Blood Culture (Wb) - Anticubital Right Blood Culture - Preliminary No growth in 48 hours. 12/26/17 11:50 Blood Culture (Wb) - Port Blood Culture - Preliminary No growth in 48 hours. 12/26/17 11:55 Urine, Clean Catch Urine Culture - Final Culture exhibits no growth. 12/27/17 15:10 Mucosa - Nose Respiratory Panel (PCR) - Final Laboratory Results 12/28/17 03:25: Diff Path Review Reviewed 12/29/17 06:05: WBC 1.1 L*, RBC 3.19 L, Hgb 9.1 L, Hct 26.9 L, MCV 84.3, MCH 28.5, MCHC 33.8, RDW 15.3 H, RDW Differential 48.1 H, Plt Count 115 L, MPV 10.3, Immature Gran % (Auto) 0.000, Neut % (Auto) 46.9 L, Lymph % (Auto) 42.5 H, [place] % (Auto) 9.7, Eos % (Auto) 0.0, Baso % (Auto) 0.9, Absolute Neuts (auto) 0.5 L, Absolute Lymphs (auto) 0.48 L, Total Counted Not Reportable, Differential Comment SCANNED, Diff Path Review July12/29/17 06:05: Sodium 142, Potassium 4.2, Chloride 106, Carbon Dioxide 29.0, Anion Gap 7, BUN 11, Creatinine 0.86, Estim Creat Clear Calc 108.23, Est GFR (MDRD) Af Amer 121, Est GFR (MDRD) Non-Af 100, BUN/Creatinine Ratio 12.8, Glucose 88, Calcium 8.3 L Current Medications Acetaminophen (Tylenol) 650 mg PO Q6H PRN PRN PRN Reason: FEVER Last Admin: 12/29/17 06:14 Dose: 650 mg Acyclovir (Zovirax) 400 mg PO BID [facility] Last Admin: 12/29/17 08:44 Dose: 400 mg Nifedipine 120 mg/ Petrolatum (60 gm) 0 mg TOPICAL 4X/DAY [facility] Last Admin: 12/28/17 22:28 Dose: 1 apply Heparin Sodium (Beef Lung) (Heparin 500 Unit/5 Ml (100/Ml)) 500 unit IV UD PRN PRN Reason: HEPARIN FLUSH Hyoscyamine Sulfate (Levsinex) 0.375 mg PO Q12 [facility] Last Admin: 12/29/17 08:44 Dose: 0.3749 mg Meropenem 1 gm/ Sodium (Chloride) 120 mls @ 33 mls/hr IV Q8 [facility] Last Admin: 12/29/17 06:11 Dose: 33 mls/hr Sodium Chloride () 250 mls @ 15 mls/hr IV .[id number] PRN PRN Reason: SALINE FLUSH Ibuprofen (Motrin) 400 mg PO BID PRN PRN Reason: PAIN Last Admin: 12/29/17 08:43 Dose: 400 mg Magnesium Hydroxide (Milk Of Magnesia) 30 ml PO DAILY PRN PRN PRN Reason: Constipation Morphine Sulfate () 1 mg IV Q4H PRN PRN PRN Reason: SEVERE PAIN (6-10/10) Nutritional Formula (Lactose Free) (Ensure Enlive) 120 ml PO 4X/DAY [facility] Last Admin: 12/28/17 22:25 Dose: 120 ml Oxycodone HCl (Oxyir) 5 mg PO Q4H PRN PRN PRN Reason: SEVERE PAIN (6-10/10) Last Admin: 12/28/17 22:25 Dose: 5 mg Psyllium Hydrophilic Mucilloid (Metamucil) 1 packet PO DAILY PRN PRN PRN Reason: CONSTIPATION Senna/Docusate Sodium (Senokot-S, Verito-Colace) 2 tablet PO BID [facility] Last Admin: 12/29/17 08:44 Dose: 2 tablet Sodium Chloride () 10 ml IV UD PRN PRN Reason: VAD FLUSH Last Admin: 12/29/17 06:12 Dose: 10 ml Tbo-Filgrastim (Granix) 480 mcg SC DAILY [facility] Last Admin: 12/29/17 08:43 Dose: 480 mcg Zolpidem Tartrate (Ambien (Generic)) 5 mg PO QHS PRN PRN PRN Reason: SLEEP Last Admin: 12/28/17 22:25 Dose: 5 mg Medical Necessity - Tobacco Use Smoking Status: Never smoker Tobacco Use: Non-smoker Assessment/Plan All Active Problems Neutropenic fever (Acute) Pancytopenia (Acute) The patient is a 52 y/o M w/ PMHx: Follicular Lymphoma stage III/IV, Pancytopenia, Obesity, Chronic Anal Fissures who presents to the [facility] ED on 12/26/17 with history of ongoing fever times 1 week with last chemo approximately 1 week prior, R-CHOP following w/ Dr. Flores. (1) Neutropenic fever affected secondary to possibly infected anal fissures with ongoing rectal bleeding: Admitted to [place], maintained on neutropenic precautions, Bld Cx 12/26/17 x 2 with NGTD, repeat 12/28/17 Bld Cx pending, UCx without growth, Respiratory viral panel unremarkable, maintained on initially meropenem and vancomycin-->transitioned to IV meropenem only, Surgery consulted and following, maintained on nifedipine topical and bowel regimen, as noted planned sitz baths with chemotherapy in the future, continued granix treatments, ID and Oncology following. Mag and phos pending. Per Oncology would plan discharge to home once ANC improved. Per discussion with infectious disease with plan discharge to home once appropriate on oral Levaquin and oral Flagyl regimen for an additional 3 days once clinically appropriate. (2) Pancytopenia, Acute on Chronic: Secondary to recent chemotherapy, s/p 1 u PRBC during admission, admission Hgb 7.8, 12/29/17 Hgb 9.1, admission WBC 1, 12/29/17 WBC 1.1 despite ongoing granix, admission Plts 107, 12/29/17 Plts 115, has remained stable, continued on granix. (3) Follicular Lymphoma stage III/IV: Following zaida/ Dr. Flores, per college he notes plan potentially washing sits baths during chemotherapy to decrease risk of infection, plan likely decrease dose of chemotherapy with subsequent cycles secondary to ongoing issues with neutropenia, continued Granix until ANC greater than 1000. Dr. Spicer consulted and following. Mag and phos pending. (4) RY Ruled out: Admission BUN/Cr 10/1.23, baseline Cr appears 0.9-1, repeat 12/29/17 11/0.86, stable, not consistent with RY. (5) DVT prophylaxis: SCDs, defer chemoprophylaxis given noted #2. Code Visit Inpatient E&M: 04630 Subs Hosp L2
--- NOTE | 2017-12-29 09:59 | PN_ITS ---
Patient Problems: Active and Suspected Problems Neutropenic fever (Acute) Pancytopenia (Acute) Subjective: Patient with no acute events overnight per self and per nursing report. He still did have elevated temperatures and has repeat blood culture from 12/28/17 pending. Patient notes feeling improved since initial presentation, less fatigued and has been up in the halls walking. Discussed plan of care including continued Granix administration until ANC appropriate with at that time discharge to home likely on continued oral Levaquin and oral Flagyl regimen given negative cultures thus far with 3 additional days of treatment per ID recommendation to which patient is amenable. Patient denies fevers, chills, nausea, emesis, abdominal pain, chest pain or dyspnea. Objective: Physical Examination: General: awake, alert, oriented x 3 and cooperative, seated upright in bed in no apparent distress. Skin: normal color, turgor, no icterus, cyanosis. HEENT: AT/NC, EOMI, PERRLA, MMM. Lungs: CTA bilaterally, moderate effort, mild decrease BL bases, no rales, ronchi or wheezing. Heart: Regular rate and rhythm; no gallop, rub audible, right chest port in place. Abdomen: soft, obese, NTTP, ND, normal BS. Extremities: no cyanosis, clubbing, or edema. Neurological: patient awake, alert, oriented x 3; cognitive function intact; pupils equally reactive to light and accomodation; cranial nerves II-XII grossly normal, moving all 4 extremities, no focal deficits, strength improving, mildly to moderately globally decreased. Psychiatric: affect appears normal, no acute evidence of depressive or anxiety feelings. Vitals/I&O's: Vital Signs Temp Pulse Resp BP Pulse Ox 99.5 F H 68 16 105/60 97 12/29/17 06:20 12/28/17 22:00 12/28/17 22:00 12/28/17 22:00 12/28/17 22:00 Oxygen Delivery Method Room Air Weight: 260 lb 4.796 oz Body Mass Index (BMI) 36.3 Intake and Output for Last 24 Hours 12/27/17 12/28/17 12/29/17 23:59 23:59 23:59 Intake Total 4140 / 4140 5108 / 5108 910 / 910 Balance 4140 / 4140 5108 / 5108 910 / 910 Microbiology Past 72 Hours 10/03/18 03:18 Blood Culture (Wb) - Anticubital Right Blood Culture - Preliminary 12/26/17 11:52 Blood Culture (Wb) - Anticubital Right Blood Culture - Preliminary No growth in 48 hours. 12/26/17 11:50 Blood Culture (Wb) - Port Blood Culture - Preliminary No growth in 48 hours. 12/26/17 11:55 Urine, Clean Catch Urine Culture - Final Culture exhibits no growth. 12/27/17 15:10 Mucosa - Nose Respiratory Panel (PCR) - Final Laboratory Results 12/28/17 03:25: Diff Path Review Reviewed 12/29/17 06:05: WBC 1.1 L*, RBC 3.19 L, Hgb 9.1 L, Hct 26.9 L, MCV 84.3, MCH 28.5, MCHC 33.8, RDW 15.3 H, RDW Differential 48.1 H, Plt Count 115 L, MPV 10.3, Immature Gran % (Auto) 0.000, Neut % (Auto) 46.9 L, Lymph % (Auto) 42.5 H, [place] % (Auto) 9.7, Eos % (Auto) 0.0, Baso % (Auto) 0.9, Absolute Neuts (auto) 0.5 L, Absolute Lymphs (auto) 0.48 L, Total Counted Not Reportable, Differential Comment SCANNED, Diff Path Review July12/29/17 06:05: Sodium 142, Potassium 4.2, Chloride 106, Carbon Dioxide 29.0, Anion Gap 7, BUN 11, Creatinine 0.86, Estim Creat Clear Calc 108.23, Est GFR (MDRD) Af Amer 121, Est GFR (MDRD) Non-Af 100, BUN/Creatinine Ratio 12.8, Gl ucose 88, Calcium 8.3 L Current Medications Acetaminophen (Tylenol) 650 mg PO Q6H PRN PRN PRN Reason: FEVER Last Admin: 12/29/17 06:14 Dose: 650 mg Acyclovir (Zovirax) 400 mg PO BID [facility] Last Admin: 12/29/17 08:44 Dose: 400 mg Nifedipine 120 mg/ Petrolatum (60 gm) 0 mg TOPICAL 4X/DAY [facility] Last Admin: 12/28/17 22:28 Dose: 1 apply Heparin Sodium (Beef Lung) (Heparin 500 Unit/5 Ml (100/Ml)) 500 unit IV UD PRN PRN Reason: HEPARIN FLUSH Hyoscyamine Sulfate (Levsinex) 0.375 mg PO Q12 [facility] Last Admin: 12/29/17 08:44 Dose: 0.3749 mg Meropenem 1 gm/ Sodium (Chloride) 120 mls @ 33 mls/hr IV Q8 [facility] Last Admin: 12/29/17 06:11 Dose: 33 mls/hr Sodium Chloride () 250 mls @ 15 mls/hr IV .[id number] PRN PRN Reason: SALINE FLUSH Ibuprofen (Motrin) 400 mg PO BID PRN PRN Reason: PAIN Last Admin: 12/29/17 08:43 Dose: 400 mg Magnesium Hydroxide (Milk Of Magnesia) 30 ml PO DAILY PRN PRN PRN Reason: Constipation Morphine Sulfate () 1 mg IV Q4H PRN PRN PRN Reason: SEVERE PAIN (6-10/10) Nutritional Formula (Lactose Free) (Ensure Enlive) 120 ml PO 4X/DAY [facility] Last Admin: 12/28/17 22:25 Dose: 120 ml Oxycodone HCl (Oxyir) 5 mg PO Q4H PRN PRN PRN Reason: SEVERE PAIN (6-10/10) Last Admin: 12/28/17 22:25 Dose: 5 mg Psyllium Hydrophilic Mucilloid (Metamucil) 1 packet PO DAILY PRN PRN PRN Reason: CONSTIPATION Senna/Docusate Sodium (Senokot-S, Verito-Colace) 2 tablet PO BID [facility] Last Admin: 12/29/17 08:44 Dose: 2 tablet Sodium Chloride () 10 ml IV UD PRN PRN Reason: VAD FLUSH Last Admin: 12/29/17 06:12 Dose: 10 ml Tbo-Filgrastim (Granix) 480 mcg SC DAILY [facility] Last Admin: 12/29/17 08:43 Dose: 480 mcg Zolpidem Tartrate (Ambien (Generic)) 5 mg PO QHS PRN PRN PRN Reason: SLEEP Last Admin: 12/28/17 22:25 Dose: 5 mg Medical Necessity - Tobacco Use Smoking Status: Never smoker Tobacco Use: Non-smoker Assessment/Plan All Active Problems Neutropenic fever (Acute) Pancytopenia (Acute) The patient is a 52 y/o M w/ PMHx: Follicular Lymphoma stage III/IV, Pancytopenia, Obesity, Chronic Anal Fissures who presents to the [facility] ED on 12/26/17 with history of ongoing fever times 1 week with last chemo approximately 1 week prior, R-CHOP following w/ Dr. Flores. (1) Neutropenic fever affected secondary to possibly infected anal fissures with ongoing rectal bleeding: Admitted to [place], maintained on neutropenic precautions, Bld Cx 12/26/17 x 2 with NGTD, repeat 12/28/17 Bld Cx pending, UCx without growth, Respiratory viral panel unremarkable, maintained on initially meropenem and vancomycin-->transitioned to IV meropenem only, Surgery consulted and following, maintained on nifedipine topical and bowel regimen, as noted planned sitz baths with chemotherapy in the future, continued granix treatments, ID and Oncology following. Mag and phos pending. Per Oncology would plan discharge to home once ANC improved. Per discussion with infectious disease with plan discharge to home once appropriate on oral Levaquin and oral Flagyl regimen for an additional 3 days once clinically appropriate. (2) Pancytopenia, Acute on Chronic: Secondary to recent chemotherapy, s/p 1 u PRBC during admission, admission Hgb 7.8, 12/29/17 Hgb 9.1, admission WBC 1, 12/29/17 WBC 1.1 despite ongoing granix, admission Plts 107, 12/29/17 Plts 115, has remained stable, continued on granix. (3) Follicular Lymphoma stage III/IV: Following w/ Dr. Flores, per college he notes plan potentially washing sits baths during chemotherapy to decrease risk of infection, plan likely decrease dose of chemotherapy with subsequent cycles secondary to ongoing issues with neutropenia, continued Granix until ANC greater than 1000. Dr. Spicer consulted and following. Mag and phos pending. (4) RY Ruled out: Admission BUN/Cr 10/1.23, baseline Cr appears 0.9-1, repeat 12/29/17 11/0.86, stable, not consistent with RY. (5) DVT prophylaxis: SCDs, defer chemoprophylaxis given noted #2. Code Visit Inpatient E&M: 31342 Subs Hosp L2
[2017-12-29 10:24] LABS: Magnesium 2.3 mg/dL (1.6-2.6); Phosphorus 3.4 mg/dL (2.5-4.9)
--- NOTE | 2017-12-29 10:31 | PCM.PN.ID ---
Patient Problems: Active and Suspected Problems Neutropenic fever (Acute) Pancytopenia (Acute) Subjective: Feeling a little better, pain improved, still some fever but better. - Physical Exam General: Alert, Cooperative, No apparent distress Lungs: Clear to auscultation, Normal air movement Cardiovascular: Regular rate, Regular Rhythm Abdomen: Soft, Non-Distended, Tender - mild soreness Skin: No rashes Vital Signs Temp Pulse Resp BP Pulse Ox 99.5 F H 68 16 105/60 97 12/29/17 06:20 12/28/17 22:00 12/28/17 22:00 12/28/17 22:00 12/28/17 22:00 Oxygen Delivery Method Room Air Weight: 118.07 kg Body Mass Index (BMI) 36.3 Intake and Output for Last 24 Hours 12/27/17 12/28/17 12/29/17 23:59 23:59 23:59 Intake Total 4140 / 4140 5108 / 5108 910 / 910 Balance 4140 / 4140 5108 / 5108 910 / 910 Microbiology Past 72 Hours 12/28/17 03:18 Blood Culture - Preliminary Blood Culture (Wb) - Anticubital Right 12/26/17 11:52 Blood Culture - Preliminary Blood Culture (Wb) - Anticubital Right No growth in 48 hours. 12/26/17 11:50 Blood Culture - Preliminary Blood Culture (Wb) - Port No growth in 48 hours. 12/26/17 11:55 Urine Culture - Final Urine, Clean Catch Culture exhibits no growth. 12/27/17 15:10 Respiratory Panel (PCR) - Final Mucosa - Nose Laboratory Tests Past 24 Hrs 12/28/17 12/29/17 12/29/17 03:25 06:05 06:05 WBC 1.1 L* RBC 3.19 L Hgb 9.1 L Hct 26.9 L MCV 84.3 MCH 28.5 MCHC 33.8 RDW 15.3 H RDW Differential 48.1 H Plt Count 115 L MPV 10.3 Immature Gran % (Auto) 0.000 Neut % (Auto) 46.9 L Lymph % (Auto) 42.5 H [place] % (Auto) 9.7 Eos % (Auto) 0.0 Baso % (Auto) 0.9 Absolute Neuts (auto) 0.5 L Absolute Lymphs (auto) 0.48 L Total Counted Not Reportable Differential Comment SCANNED Diff Path Review Reviewed July foll Sodium 142 Potassium 4.2 Chloride 106 Carbon Dioxide 29.0 Anion Gap 7 BUN 11 Creatinine 0.86 Estim Creat Clear Calc 108.23 Est GFR (MDRD) Af Amer 121 Est GFR (MDRD) Non-Af 100 BUN/Creatinine Ratio 12.8 Glucose 88 Calcium 8.3 L Phosphorus Magnesium 12/29/17 06:05 WBC RBC Hgb Hct MCV MCH MCHC RDW RDW Differential Plt Count MPV Immature Gran % (Auto) Neut % (Auto) Lymph % (Auto) [place] % (Auto) Eos % (Auto) Baso % (Auto) Absolute Neuts (auto) Absolute Lymphs (auto) Total Counted Differential Comment Diff Path Review Sodium Potassium Chloride Carbon Dioxide Anion Gap BUN Creatinine Estim Creat Clear Calc Est GFR (MDRD) Af Amer Est GFR (MDRD) Non-Af BUN/Creatinine Ratio Glucose Calcium Phosphorus 3.4 Magnesium 2.3 Medical Necessity - Tobacco Use Smoking Status: Never smoker Tobacco Use: Non-smoker Route of nutrition/ use of supplements: [] Nutritional Intake: [] IV Site: [] [place]donez Catheter: [] - Assessment/Plan Antibiotics: [] Assessment/Plan: [] Active and Suspected Problems Neutropenic fever (Acute) Pancytopenia (Acute) Neutropenic fever with anal fissure - continued fever and low ANC. Bcx neg so far. Resp viral panel was neg. Continue meropenem. Will stop vanc. Surgery and oncology following. Tentative plan once counts recover and fever resolve would be d/c home on short course of po abx for GI coverage. Will follow. D/w Dr. Knox.
[2017-12-29 11:03] VITALS: BP 104/54; PULSE 72; RESP 18; TEMP 36.9; O2SAT 99
[2017-12-29 16:00] VITALS: BP 108/55; PULSE 79; RESP 18; TEMP 36.9; O2SAT 99
[2017-12-29 21:15] VITALS: BP 124/79; PULSE 68; RESP 18; TEMP 36.5; O2SAT 100
[2017-12-29] MEDS: Zolpidem Tartrate 5 MG Tablet PO (22:39)
[2017-12-30] MEDS: 0.9% NaCl VAD Flush 10 ML IV ×3 (05:59→21:09)
[2017-12-30] MEDS: Acetaminophen 325 MG Tablet 650 MG PO (05:59)
[2017-12-30 06:04] VITALS: BP 115/78; PULSE 65; RESP 16; TEMP 36.6; O2SAT 99
[2017-12-30 06:20] LABS: Anion Gap 5 (5-15); BUN 13 mg/dL (7-18); BUN/Creat Ratio 17.7 RATIO (10-20); Calcium,Total 8.2 mg/dL (8.5-10.1); Chloride 110 mmol/L (98-107); Creatinine, Serum 0.73 mg/dL (0.70-1.30); EST Glomerular Filtration Rate 120 mL/min (>60); Est Glom Filt Rate - Afr Amer 145 mL/min (>60); Estimated Creatinine Clearance 127.51 ml/min; Glucose 92 mg/dL (74-106); Potassium 3.9 mmol/L (3.5-5.1); Sodium Level 143 mmol/L (136-145)
[2017-12-30 06:45] LABS: Hematocrit 24.8 % (40-54); Hemoglobin 8.3 g/dl (13.0-16.5); Mean Corp Hgb Conc 33.5 g/gl (32-36); Mean Corpuscular Hgb 28.9 pg (27.0-32.0); Mean Corpuscular Volume 86.4 fL (80-94); Mean Platelet Vol. 10.2 fl (6.2-12.0); Platelet Count 122 K/mm3 (150-450); RBC Distribution Width CV 14.8 % (11.6-14.6); RBC Distribution Width SD 45.1 fl (35.1-43.9); Red Blood Count 2.87 M/mm3 (4.6-6.2)
[2017-12-30 06:49] LABS: Differential Indicated MANUAL DIFF; POSITIVE COUNT YES; POSITIVE DIFFERENTIAL YES; POSITIVE MORPHOLOGY YES
[2017-12-30 06:50] LABS: White Blood Count 1.3 K/mm3 (4.4-11.0)
[2017-12-30 07:14] LABS: Lymphocyte 39 % (19-41); Metamyelocyte 1 % (0-1); Monocyte 6 % (0-10); Neutrophil-Band 3 % (0-5); Neutrophil-Segmented 51 % (47-70); Total Cells Counted 100 (MANUAL DIFF)
[2017-12-30 07:18] LABS: Absolute Lymphocyte Count 0.51 X10^3/ul (0.83-4.51); Absolute Neutrophil Count 0.7 X10^3/uL (2.0-7.7)
[2017-12-30 07:19] LABS: Differential Comment SEE COMMENTS; Platelet Estimate SLT DEC (ADEQ)
[2017-12-30 07:20] LABS: Anisocytosis RARE
--- NOTE | 2017-12-30 07:49 | PCM.PN.HOSP ---
Patient Problems: Active and Suspected Problems Neutropenic fever (Acute) Pancytopenia (Acute) Subjective: Patient with no acute events overnight per self and per nursing report. Patient notes he slept well but did have a lot of sweating overnight. Discussed results this morning and noted that his labs have been improving with possible discharge to home tomorrow if ANC greater than 1. Patient remains amenable with current plan. Patient instructed to continue with bottle washing following bowel movements and restart of sits baths at home. Patient denies fevers, chills, nausea, emesis, abdominal pain, chest pain or dyspnea. Objective: Physical Examination: General: awake, alert, oriented x 3 and cooperative, seated upright at beside, in no apparent distress. Skin: normal color, turgor, no icterus, cyanosis. HEENT: AT/NC, EOMI, PERRLA, MMM. Lungs: CTA bilaterally, moderate effort, mild decrease BL bases, no rales, ronchi or wheezing. Heart: Regular rate and rhythm; no gallop, rub audible, right chest port in place. Abdomen: soft, obese, NTTP, ND, normal BS. Extremities: no cyanosis, clubbing, or edema. Neurological: patient awake, alert, oriented x 3; cognitive function intact; pupils equally reactive to light and accomodation; cranial nerves II-XII grossly normal, moving all 4 extremities, no focal deficits, strength improved, mildly globally decreased. Psychiatric: affect appears normal, no acute evidence of depressive or anxiety feelings. Vitals/I&O's: Vital Signs Temp Pulse Resp BP Pulse Ox 97.8 F 65 16 115/78 99 12/30/17 06:04 12/30/17 06:04 12/30/17 06:04 12/30/17 06:04 12/30/17 06:04 Oxygen Delivery Method Room Air Weight: 260 lb 4.796 oz Body Mass Index (BMI) 36.3 Intake and Output for Last 24 Hours 12/28/17 12/29/17 12/30/17 23:59 23:59 23:59 Intake Total 5108 / 5108 2330 / 2330 Balance 5108 / 5108 2330 / 2330 Microbiology Past 72 Hours 12/28/17 03:18 Blood Culture (Wb) - Anticubital Right Blood Culture - Preliminary 12/26/17 11:52 Blood Culture (Wb) - Anticubital Right Blood Culture - Preliminary No growth in 48 hours. 12/26/17 11:50 Blood Culture (Wb) - Port Blood Culture - Preliminary No growth in 48 hours. 12/26/17 11:55 Urine, Clean Catch Urine Culture - Final Culture exhibits no growth. 12/27/17 15:10 Mucosa - Nose Respiratory Panel (PCR) - Final Laboratory Results 12/29/17 06:05: Phosphorus 3.4, Magnesium 2.3 12/30/17 05:55: WBC 1.3 L*, RBC 2.87 L, Hgb 8.3 L, Hct 24.8 L, MCV 86.4, MCH 28.9, MCHC 33.5, RDW 14.8 H, RDW Differential 45.1 H, Plt Count 122 L, MPV 10.2, Neut % (Auto) Not Reportable, Absolute Neuts (auto) 0.7 L, Absolute Lymphs (auto) 0.51 L, Total Counted 100, Neutrophils % (Manual) 51, Band Neutrophils % 3, Lymphocytes % (Manual) 39, Monocytes % (Manual) 6, Metamyelocytes % 1, Differential Comment SEE COMMENTS, Diff Path Review May foll, Platelet Estimate SLT DEC, Anisocytosis RARE 12/30/17 05:55: Sodium 143, Potassium 3.9, Chloride 110 H, Carbon Dioxide 28.0, Anion Gap 5, BUN 13, Creatinine 0.73, Estim Creat Clear Calc 127.51, Est GFR (MDRD) Af Amer 145, Est GFR (MDRD) Non-Af 120, BUN/Creatinine Ratio 17.7, Glucose 92, Calcium 8.2 L Current Medications Acetaminophen (Tylenol) 650 mg PO Q6H PRN PRN PRN Reason: FEVER Last Admin: 12/30/17 05:59 Dose: 650 mg Acyclovir (Zovirax) 400 mg PO BID [facility] Last Admin: 12/29/17 21:21 Dose: 400 mg Nifedipine 120 mg/ Petrolatum (60 gm) 0 mg TOPICAL 4X/DAY [facility] Last Admin: 12/29/17 21:23 Dose: 1 apply Heparin Sodium (Beef Lung) (Heparin 500 Unit/5 Ml (100/Ml)) 500 unit IV UD PRN PRN Reason: HEPARIN FLUSH Hyoscyamine Sulfate (Levsinex) 0.375 mg PO Q12 [facility] Last Admin: 12/29/17 21:20 Dose: 0.3749 mg Meropenem 1 gm/ Sodium (Chloride) 120 mls @ 33 mls/hr IV Q8 [facility] Last Admin: 12/30/17 05:59 Dose: 33 mls/hr Sodium Chloride () 250 mls @ 15 mls/hr IV .[id number] PRN PRN Reason: SALINE FLUSH Ibuprofen (Motrin) 400 mg PO BID PRN PRN Reason: PAIN Last Admin: 12/29/17 21:21 Dose: 400 mg Magnesium Hydroxide (Milk Of Magnesia) 30 ml PO DAILY PRN PRN PRN Reason: Constipation Morphine Sulfate () 1 mg IV Q4H PRN PRN PRN Reason: SEVERE PAIN (6-10/10) Nutritional Formula (Lactose Free) (Ensure Enlive) 120 ml PO 4X/DAY [facility] Last Admin: 12/29/17 21:21 Dose: 120 ml Oxycodone HCl (Oxyir) 5 mg PO Q4H PRN PRN PRN Reason: SEVERE PAIN (6-1010) Last Admin: 12/28/17 22:25 Dose: 5 mg Psyllium Hydrophilic Mucilloid (Metamucil) 1 packet PO DAILY PRN PRN PRN Reason: CONSTIPATION Senna/Docusate Sodium (Senokot-S, Verito-Colace) 2 tablet PO BID [facility] Last Admin: 12/29/17 21:22 Dose: Not Given Sodium Chloride () 10 ml IV UD PRN PRN Reason: VAD FLUSH Last Admin: 12/30/17 06:00 Dose: 10 ml Tbo-Filgrastim (Granix) 480 mcg SC DAILY [facility] Last Admin: 12/29/17 08:43 Dose: 480 mcg Zolpidem Tartrate (Ambien (Generic)) 5 mg PO QHS PRN PRN PRN Reason: SLEEP Last Admin: 12/29/17 22:39 Dose: 5 mg Medical Necessity - Tobacco Use Smoking Status: Never smoker Tobacco Use: Non-smoker Assessment/Plan All Active Problems Neutropenic fever (Acute) Pancytopenia (Acute) The patient is a 52 y/o M w/ PMHx: Follicular Lymphoma stage III/IV, Pancytopenia, Obesity, Chronic Anal Fissures who presents to the [facility] ED on 12/26/17 with history of ongoing fever times 1 week with last chemo approximately 1 week prior, R-CHOP following w/ Dr. Flores. (1) Neutropenic fever affected secondary to possibly infected anal fissures with ongoing rectal bleeding: Admitted to [facility], maintained on neutropenic precautions, Bld Cx 12/26/17 x 2 with NGTD, repeat 12/28/17 Bld Cx pending, UCx without growth, Respiratory viral panel unremarkable, maintained on initially meropenem and vancomycin-->transitioned to IV meropenem only, Surgery consulted and following, maintained on nifedipine topical and bowel regimen, as noted planned sitz baths with chemotherapy at home which he notes he has been performing, continued granix treatments, ID and Oncology following. Mag and phos normal levels. Per Oncology would plan discharge to home once ANC improved, 12/30/17 ANC 0.7, suspect may be able to go home 12/31/17 but will await levels tomorrow. Per discussion with infectious disease with plan discharge to home once appropriate on oral Levaquin and oral Flagyl regimen for an additional 3 days once clinically appropriate. If appropriate for discharge to home in AM will plan follow-up with Dr. Flores in 1 week per discussion with Dr. Spicer. (2) Pancytopenia, Acute on Chronic: Secondary to recent chemotherapy, s/p 1 u PRBC during admission, admission Hgb 7.8, WBC 1, Plts 107 w/ ANC < 1, 12/30/17 CBC w/ WBC 1.3, Hgb 8.3, Plts 122 with ANC improving 0.7. Repeat CBC in AM. (3) Follicular Lymphoma stage III/IV: Following w/ Dr. Flores, per [facility] he notes plan potentially washing sits baths during chemotherapy to decrease risk of infection, plan likely decrease dose of chemotherapy with subsequent cycles secondary to ongoing issues with neutropenia, continued Granix until ANC greater than 1000, suspect likely 12/31/17. Dr. Spicer consulted and following. Mag and phos normal levels. (4) RY Ruled out: Admission BUN/Cr 10/1.23, baseline Cr appears 0.9-1, repeat 12/29/17 11/0.86-->12/30/17 BUN/Cr 13/0.73, stable, not consistent with RY. (5) DVT prophylaxis: SCDs, defer chemoprophylaxis given noted #2. Code Visit Inpatient E&M: 14679 Subs Hosp L2
--- NOTE | 2017-12-30 08:19 | NURSING ---
This RN called lab this morning and spoke with Sugar in micro regarding preliminary blood culture results per Dr. Knox's request. States that there are no reportable results. Sugar states that the result was a false positive and that prelim. culture is negative. This RN then spoke with Jose regarding neutrophil counts that are labeled as not reportable. Notified that neutrophil % is sigs 51% and bands 3%. Also notified that absolute neuts is 0.7.
[2017-12-30 10:44] VITALS: BP 121/78; PULSE 77; RESP 16; TEMP 36.5; O2SAT 99
[2017-12-30] MEDS: Acyclovir 200 MG Capsule 400 MG PO ×2 (11:19→21:10)
[2017-12-30] MEDS: TBO-FILGRASTIM 480 MCG/0.8 ML ML SC (11:28)
--- NOTE | 2017-12-30 13:01 | PCM.PN.ID ---
Patient Problems: Active and Suspected Problems Neutropenic fever (Acute) Pancytopenia (Acute) Subjective: Feeling better, more energy, no fever, no rectal pain, no blood with BM - Physical Exam General: Alert, Cooperative, No apparent distress Lungs: Clear to auscultation, Normal air movement Cardiovascular: Regular rate, Regular Rhythm Abdomen: Soft, Non Tender, Non-Distended Skin: No rashes Vital Signs Temp Pulse Resp BP Pulse Ox 97.7 F L 77 16 121/78 H 99 12/30/17 10:44 12/30/17 10:44 12/30/17 10:44 12/30/17 10:44 12/30/17 10:44 Oxygen Delivery Method Room Air Weight: 118.07 kg Body Mass Index (BMI) 36.3 Intake and Output for Last 24 Hours 12/28/17 12/29/17 12/30/17 23:59 23:59 23:59 Intake Total 5108 / 5108 2330 / 2330 Balance 5108 / 5108 2330 / 2330 Microbiology Past 72 Hours 12/28/17 03:18 Blood Culture - Preliminary Blood Culture (Wb) - Anticubital Right No growth in 48 hours. 12/28/17 03:25 Blood Culture - Preliminary Blood Culture (Wb) - Port No growth in 48 hours. 12/26/17 11:52 Blood Culture - Preliminary Blood Culture (Wb) - Anticubital Right No growth in 48 hours. 12/26/17 11:50 Blood Culture - Preliminary Blood Culture (Wb) - Port No growth in 48 hours. 12/26/17 11:55 Urine Culture - Final Urine, Clean Catch Culture exhibits no growth. 12/27/17 15:10 Respiratory Panel (PCR) - Final Mucosa - Nose Laboratory Tests Past 24 Hrs 12/30/17 12/30/17 05:55 05:55 WBC 1.3 L* RBC 2.87 L Hgb 8.3 L Hct 24.8 L MCV 86.4 MCH 28.9 MCHC 33.5 RDW 14.8 H RDW Differential 45.1 H Plt Count 122 L MPV 10.2 Neut % (Auto) Not Reportable Absolute Neuts (auto) 0.7 L Absolute Lymphs (auto) 0.51 L Total Counted 100 Neutrophils % (Manual) 51 Band Neutrophils % 3 Lymphocytes % (Manual) 39 Monocytes % (Manual) 6 Metamyelocytes % 1 Differential Comment SEE COMMENTS Diff Path Review May foll Platelet Estimate SLT DEC Anisocytosis RARE Sodium 143 Potassium 3.9 Chloride 110 H Carbon Dioxide 28.0 Anion Gap 5 BUN 13 Creatinine 0.73 Estim Creat Clear Calc 127.51 Est GFR (MDRD) Af Amer 145 Est GFR (MDRD) Non-Af 120 BUN/Creatinine Ratio 17.7 Glucose 92 Calcium 8.2 L Medical Necessity - Tobacco Use Smoking Status: Never smoker Tobacco Use: Non-smoker Route of nutrition/ use of supplements: [] Nutritional Intake: [] IV Site: [] Ordonez Catheter: [] - Assessment/Plan Antibiotics: [] Assessment/Plan: [] Active and Suspected Problems Neutropenic fever (Acute) Pancytopenia (Acute) Neutropenic fever with anal fissure - Fever resolved, ANC improving, and pain is resolved. Bcx neg so far. Resp viral panel was neg. Continue meropenem. Surgery and oncology following. Given his amount of improvement, plan will be for discharge home off of abx once ANC recovers. Will follow. D/w Dr. Knox.
[2017-12-30 14:17] VITALS: BP 111/62; PULSE 72; RESP 16; TEMP 36.6; O2SAT 99
[2017-12-30 15:18] LABS: Pathologist Review Reviewed
[2017-12-30 15:20] LABS: Pathologist Review Reviewed
[2017-12-30] MEDS: Ibuprofen 400 MG Tablet PO (16:33)
[2017-12-30 21:06] VITALS: BP 121/62; PULSE 56; RESP 16; TEMP 36.9; O2SAT 99
[2017-12-31 01:05] VITALS: BP 100/67; PULSE 75; RESP 16; TEMP 36.8; O2SAT 97
[2017-12-31] MEDS: Zolpidem Tartrate 5 MG Tablet PO (01:07)
[2017-12-31] MEDS: 0.9% NaCl VAD Flush 10 ML IV ×7 (01:07→22:17)
[2017-12-31 06:22] VITALS: BP 112/79; PULSE 66; RESP 16; TEMP 36.6; O2SAT 98
[2017-12-31 06:31] LABS: Absolute Neutrophil Count 0.1 X10^3/uL (2.0-7.7); Basophil# 0.01 X10^3/uL; Basophil% 0.9 % (0-1); Hematocrit 24.8 % (40-54); Hemoglobin 8.3 g/dl (13.0-16.5); Lymphocyte % 60.3 % (19-41); Mean Corp Hgb Conc 33.5 g/gl (32-36); Mean Corpuscular Hgb 28.8 pg (27.0-32.0); Mean Corpuscular Volume 86.1 fL (80-94); Mean Platelet Vol. 10.9 fl (6.2-12.0); Monocyte# 0.32 X10^3/uL; Monocyte% 27.6 % (0-10); Neutrophil # 0.13 X10^3/uL (2.7-7.7); Neutrophil % 11.2 % (47-70); Platelet Count 142 K/mm3 (150-450); RBC Distribution Width CV 14.6 % (11.6-14.6); RBC Distribution Width SD 44.5 fl (35.1-43.9); Red Blood Count 2.88 M/mm3 (4.6-6.2)
[2017-12-31 06:34] LABS: Differential Indicated SCAN CRITERIA MET; POSITIVE COUNT YES; POSITIVE DIFFERENTIAL YES; POSITIVE MORPHOLOGY YES
[2017-12-31 06:46] LABS: BUN 9 mg/dL (7-18); Creatinine, Serum 0.72 mg/dL (0.70-1.30); Estimated Creatinine Clearance 129.28 ml/min; Glucose 83 mg/dL (74-106)
[2017-12-31 06:47] LABS: Anion Gap 8 (5-15); BUN/Creat Ratio 12.4 RATIO (10-20); Calcium,Total 8.2 mg/dL (8.5-10.1); Chloride 108 mmol/L (98-107); EST Glomerular Filtration Rate 122 mL/min (>60); Est Glom Filt Rate - Afr Amer 147 mL/min (>60); Potassium 4.1 mmol/L (3.5-5.1); Sodium Level 144 mmol/L (136-145)
--- NOTE | 2017-12-31 07:10 | PCM.PN.HOSP ---
Patient Problems: Active and Suspected Problems Neutropenic fever (Acute) Pancytopenia (Acute) Subjective: Patient with onset loose stools evening prior and into this morning, noted 5 the evening prior and one this morning with irritation of the rectum secondary to increased output. Otherwise, patient without any acute complaints but does note some mild distention with onset of loose stools. Discussed plan of care which includes continued close monitoring given ANC decreased from prior and not >1 with stool cultures requested initiation of lactobacillus. Discussed that current presentation may be secondary to antibiotic therapy alone but 1 to assure not to alternate etiology. Patient denies fevers, chills, nausea, emesis, abdominal pain, chest pain or dyspnea. Objective: Physical Examination: General: awake, alert, oriented x 3 and cooperative, seated upright at beside, in no apparent distress. Skin: normal color, turgor, no icterus, cyanosis. HEENT: AT/NC, EOMI, PERRLA, MMM. Lungs: CTA bilaterally, moderate effort, mild decrease BL bases, no rales, ronchi or wheezing. Heart: Regular rate and rhythm; no gallop, rub audible, right chest port in place. Abdomen: soft, obese, NTTP, moderately hyperactive BS, moderately distended. Extremities: no cyanosis, clubbing, or edema. Neurological: patient awake, alert, oriented x 3; cognitive function intact; pupils equally reactive to light and accomodation; cranial nerves II-XII grossly normal, moving all 4 extremities, no focal deficits, strength mildly globally decreased, walking in the room. Psychiatric: affect appears mildly disappointed given need for continued hospitalization, no acute evidence of depressive or anxiety feelings. Vitals/I&O's: Vital Signs Temp Pulse Resp BP Pulse Ox 97.9 F 66 16 112/79 98 12/31/17 06:22 12/31/17 06:22 12/31/17 06:22 12/31/17 06:22 12/31/17 06:22 Oxygen Delivery Method Room Air Weight: 260 lb 4.796 oz Body Mass Index (BMI) 36.3 Intake and Output for Last 24 Hours 12/29/17 12/30/17 12/31/17 23:59 23:59 23:59 Intake Total 2330 / 2330 78.6 / 78.6 44.7 / 44.7 Balance 2330 / 2330 78.6 / 78.6 44.7 / 44.7 Microbiology Past 72 Hours 12/28/17 03:18 Blood Culture (Wb) - Anticubital Right Blood Culture - Preliminary No growth in 48 hours. 12/28/17 03:25 Blood Culture (Wb) - Port Blood Culture - Preliminary No growth in 48 hours. 12/26/17 11:52 Blood Culture (Wb) - Anticubital Right Blood Culture - Preliminary No growth in 48 hours. 12/26/17 11:50 Blood Culture (Wb) - Port Blood Culture - Preliminary No growth in 48 hours. 12/26/17 11:55 Urine, Clean Catch Urine Culture - Final Culture exhibits no growth. 12/27/17 15:10 Mucosa - Nose Respiratory Panel (PCR) - Final Laboratory Results 12/29/17 06:05: Diff Path Review Reviewed 12/30/17 05:55: Absolute Neuts (auto) 0.7 L, Absolute Lymphs (auto) 0.51 L, Total Counted 100, Neutrophils % (Manual) 51, Band Neutrophils % 3, Lymphocytes % (Manual) 39, Monocytes % (Manual) 6, Metamyelocytes % 1, Differential Comment SEE COMMENTS, Diff Path Review Reviewed, Platelet Estimate SLT DEC, Anisocytosis RARE 12/31/17 06:18: WBC 1.2 L*, RBC 2.88 L, Hgb 8.3 L, Hct 24.8 L, MCV 86.1, MCH 28.8, MCHC 33.5, RDW 14.6, RDW Differential 44.5 H, Plt Count 142 L, MPV 10.9, Immature Gran % (Auto) 0.000, Neut % (Auto) 11.2 L, Lymph % (Auto) 60.3 H, [place] % (Auto) 27.6 H, Eos % (Auto) 0.0, Baso % (Auto) 0.9, Absolute Neuts (auto) 0.1 L, Absolute Lymphs (auto) 0.70 L, Total Counted Pending 12/31/17 06:18: Sodium 144, Potassium 4.1, Chloride 108 H, Carbon Dioxide 28.0, Anion Gap 8, BUN 9, Creatinine 0.72, Estim Creat Clear Calc 129.28, Est GFR (MDRD) Af Amer 147, Est GFR (MDRD) Non-Af 122, BUN/Creatinine Ratio 12.4, Glucose 83, Calcium 8.2 L Current Medications Acetaminophen (Tylenol) 650 mg PO Q6H PRN PRN PRN Reason: FEVER Last Admin: 12/30/17 05:59 Dose: 650 mg Acyclovir (Zovirax) 400 mg PO BID [facility] Last Admin: 12/30/17 21:10 Dose: 400 mg Nifedipine 120 mg/ Petrolatum (60 gm) 0 mg TOPICAL 4X/DAY [facility] Last Admin: 12/30/17 21:11 Dose: 1 apply Heparin Sodium (Beef Lung) (Heparin 500 Unit/5 Ml (100/Ml)) 500 unit IV UD PRN PRN Reason: HEPARIN FLUSH Hyoscyamine Sulfate (Levsinex) 0.375 mg PO Q12 [facility] Last Admin: 12/30/17 21:09 Dose: 0.3749 mg Meropenem 1 gm/ Sodium (Chloride) 120 mls @ 33 mls/hr IV Q8 [facility] Last Admin: 12/31/17 06:24 Dose: 33 mls/hr Sodium Chloride () 250 mls @ 15 mls/hr IV .[id number] PRN PRN Reason: SALINE FLUSH Ibuprofen (Motrin) 400 mg PO BID PRN PRN Reason: PAIN Last Admin: 12/30/17 16:33 Dose: 400 mg Magnesium Hydroxide (Milk Of Magnesia) 30 ml PO DAILY PRN PRN PRN Reason: Constipation Morphine Sulfate () 1 mg IV Q4H PRN PRN PRN Reason: SEVERE PAIN (6-10/10) Nutritional Formula (Lactose Free) (Ensure Enlive) 120 ml PO 4X/DAY [facility] Last Admin: 12/30/17 21:09 Dose: 120 ml Oxycodone HCl (Oxyir) 5 mg PO Q4H PRN PRN PRN Reason: SEVERE PAIN (6-10/10) Last Admin: 12/28/17 22:25 Dose: 5 mg Psyllium Hydrophilic Mucilloid (Metamucil) 1 packet PO DAILY PRN PRN PRN Reason: CONSTIPATION Senna/Docusate Sodium (Senokot-S, Verito-Colace) 2 tablet PO BID [facility] Last Admin: 12/30/17 21:10 Dose: Not Given Sodium Chloride () 10 ml IV UD PRN PRN Reason: VAD FLUSH Last Admin: 12/31/17 06:26 Dose: 10 ml Tbo-Filgrastim (Granix) 480 mcg SC DAILY [facility] Last Admin: 12/30/17 11:28 Dose: 480 mcg Zolpidem Tartrate (Ambien (Generic)) 5 mg PO QHS PRN PRN PRN Reason: SLEEP Last Admin: 12/31/17 01:07 Dose: 5 mg Medical Necessity - Tobacco Use Smoking Status: Never smoker Tobacco Use: Non-smoker Assessment/Plan All Active Problems Neutropenic fever (Acute) Pancytopenia (Acute) The patient is a 52 y/o M w/ PMHx: Follicular Lymphoma stage III/IV, Pancytopenia, Obesity, Chronic Anal Fissures who presents to the [facility] ED on 12/26/17 with history of ongoing fever times 1 week with last chemo approximately 1 week prior, R-CHOP following w/ Dr. Flores. (1) Neutropenic fever affected secondary to possibly infected anal fissures with ongoing rectal bleeding: Admitted to CT, maintained on neutropenic precautions, Bld Cx 12/26/17 x 2 with NGTD, repeat 12/28/17 Bld Cx pending, UCx without growth, Respiratory viral panel unremarkable, maintained on initially meropenem and vancomycin-->transitioned to IV meropenem only, Surgery consulted and following, maintained on nifedipine topical and bowel regimen, as noted planned sitz baths with chemotherapy at home which he notes he has been performing, continued granix treatments, ID and Oncology following. Mag and phos normal levels. Per Oncology would plan discharge to home once ANC improved, 12/30/17 ANC 0.7-->12/31/17 ANC decreased again 0.1, will continue to monitor. Per discussion with infectious disease discharge to home once appropriate initially on oral Levaquin and oral Flagyl regimen; however, repeat discussions on 12/30/17 with decision for discontinued off abx therapy but will monitor and if needed may consider especially given now loose stools. 12/30/17-12/31/17 start of loose stools, bowel regimen held, pending stool culture, c-diff assay. (2) Diarrhea, New onset, Unclear Etiology: Possible secondary to abx therapy alone, but given current presentation, causing irritation of rectal fissure, no bleeding per patient report, maintained currently on meropenem as noted, bowel regimen held, will obtain stool culture, c-diff assay. Added lactobacillus regimen. (3) Pancytopenia, Acute on Chronic: Secondary to recent chemotherapy, s/p 1 u PRBC during admission, admission Hgb 7.8, WBC 1, Plts 107 w/ ANC < 1, 12/30/17 CBC w/ WBC 1.3, Hgb 8.3, Plts 122 with ANC improving 0.7; however, repeat 12/31/17 CBC w/ WBC 1.2, Hgb 8.3, Plts 142, ANC 0.1. (4) Follicular Lymphoma stage III/IV: Following w/ Dr. Flores, per college he notes plan potentially washing sits baths during chemotherapy to decrease risk of infection, plan likely decrease dose of chemotherapy with subsequent cycles secondary to ongoing issues with neutropenia, continued Granix until ANC greater than 1000. Dr. Spicer consulted and following. Mag and phos normal levels. (5) RY Ruled out: Admission BUN/Cr 10/1.23, baseline Cr appears 0.9-1, repeat 12/29/17 11/0.86-->12/31/17 BUN/Cr 9/0.72, stable, not consistent with RY given baseline 0.9-1 as noted. (6) DVT prophylaxis: SCDs, defer chemoprophylaxis given noted #2. Code Visit Inpatient E&M: 04057 Subs Hosp L2
[2017-12-31 07:16] LABS: White Blood Count 1.2 K/mm3 (4.4-11.0)
--- NOTE | 2017-12-31 07:16 | PN_ITS ---
Patient Problems: Active and Suspected Problems Neutropenic fever (Acute) Pancytopenia (Acute) Subjective: Patient with onset loose stools evening prior and into this morning, noted 5 the evening prior and one this morning with irritation of the rectum secondary to increased output. Otherwise, patient without any acute complaints but does note some mild distention with onset of loose stools. Discussed plan of care which includes continued close monitoring given ANC decreased from prior and not >1 with stool cultures requested initiation of lactobacillus. Discussed that current presentation may be secondary to antibiotic therapy alone but 1 to assure not to alternate etiology. Patient denies fevers, chills, nausea, terri sis, abdominal pain, chest pain or dyspnea. Objective: Physical Examination: General: awake, alert, oriented x 3 and cooperative, seated upright at beside, in no apparent distress. Skin: normal color, turgor, no icterus, cyanosis. HEENT: AT/NC, EOMI, PERRLA, MMM. Lungs: CTA bilaterally, moderate effort, mild decrease BL bases, no rales, ronchi or wheezing. Heart: Regular rate and rhythm; no gallop, rub audible, right chest port in place. Abdomen: soft, obese, NTTP, moderately hyperactive BS, moderately distended. Extremities: no cyanosis, clubbing, or edema. Neurological: patient awake, alert, oriented x 3; cognitive function intact; pupils equally reactive to light and accomodation; cranial nerves II-XII grossly normal, moving all 4 extremities, no focal deficits, strength mildly globally decreased, walking in the room. Psychiatric: affect appears mildly disappointed given need for continued hospitalization, no acute evidence of depressive or anxiety feelings. Vitals/I&O's: Vital Signs Temp Pulse Resp BP Pulse Ox 97.9 F 66 16 112/79 98 12/31/17 06:22 12/31/17 06:22 12/31/17 06:22 12/31/17 06:22 12/31/17 06:22 Oxygen Delivery Method Room Air Weight: 260 lb 4.796 oz Body Mass Index (BMI) 36.3 Intake and Output for Last 24 Hours 12/29/17 12/30/17 12/31/17 23:59 23:59 23:59 Intake Total 2330 / 2330 78.6 / 78.6 44.7 / 44.7 Balance 2330 / 2330 78.6 / 78.6 44.7 / 44.7 Microbiology Past 72 Hours 12/28/17 03:18 Blood Culture (Wb) - Anticubital Right Blood Culture - Preliminary No growth in 48 hours. 12/28/17 03:25 Blood Culture (Wb) - Port Blood Culture - Preliminary No growth in 48 hours. 12/26/17 11:52 Blood Culture (Wb) - Anticubital Right Blood Culture - Preliminary No growth in 48 hours. 12/26/17 11:50 Blood Culture (Wb) - Port Blood Culture - Preliminary No growth in 48 hours. 12/26/17 11:55 Urine, Clean Catch Urine Culture - Final Culture exhibits no growth. 12/27/17 15:10 Mucosa - Nose Respiratory Panel (PCR) - Final Laboratory Results 12/29/17 06:05: Diff Path Review Reviewed 12/30/17 05:55: Absolute Neuts (auto) 0.7 L, Absolute Lymphs (auto) 0.51 L, Total Counted 100, Neutrophils % (Manual) 51, Band Neutrophils % 3, Lymphocytes % (Manual) 39, Monocytes % (Manual) 6, Metamyelocytes % 1, Differential Comment SEE COMMENTS, Diff Path Review Reviewed, Platelet Estimate SLT DEC, Anisocytosis RARE 12/31/17 06:18: WBC 1.2 L*, RBC 2.88 L, Hgb 8.3 L, Hct 24.8 L, MCV 86.1, MCH 28.8, MCHC 33.5, RDW 14.6, RDW Differential 44.5 H, Plt Count 142 L, MPV 10.9, Immature Gran % (Auto) 0.000, Neut % (Auto) 11.2 L, Lymph % (Auto) 60.3 H, [place] % (Auto) 27.6 H, Eos % (Auto) 0.0, Baso % (Auto) 0.9, Absolute Neuts (auto) 0.1 L, Absolute Lymphs (auto) 0.70 L, Total Counted Pending 12/31/17 06:18: Sodium 144, Potassium 4.1, Chloride 108 H, Carbon Dioxide 28.0, Anion Gap 8, BUN 9, Creatinine 0.72, Estim Creat Clear Calc 129.28, Est GFR (MDRD) Af Amer 147, Est GFR (MDRD) Non-Af 122, BUN/Creatinine Ratio 12.4, Glucose 83, Calcium 8.2 L Current Medications Acetaminophen (Tylenol) 650 mg PO Q6H PRN PRN PRN Reason: FEVER Last Admin: 12/30/17 05:59 Dose: 650 mg Acyclovir (Zovirax) 400 mg PO BID COUNT INCLUDES THE [facility] Last Admin: 12/30/17 21:10 Dose: 400 mg Nifedipine 120 mg/ Petrolatum (60 gm) 0 mg TOPICAL 4X/DAY COUNT INCLUDES THE [facility] Last Admin: 12/30/17 21:11 Dose: 1 apply Heparin Sodium (Beef Lung) (Heparin 500 Unit/5 Ml (100/Ml)) 500 unit IV UD PRN PRN Reason: HEPARIN FLUSH Hyoscyamine Sulfate (Levsinex) 0.375 mg PO Q12 COUNT INCLUDES THE [facility] Last Admin: 12/30/17 21:09 Dose: 0.3749 mg Meropenem 1 gm/ Sodium (Chloride) 120 mls @ 33 mls/hr IV Q8 COUNT INCLUDES THE [facility] Last Admin: 12/31/17 06:24 Dose: 33 mls/hr Sodium Chloride () 250 mls @ 15 mls/hr IV .[id number] PRN PRN Reason: SALINE FLUSH Ibuprofen (Motrin) 400 mg PO BID PRN PRN Reason: PAIN Last Admin: 12/30/17 16:33 Dose: 400 mg Magnesium Hydroxide (Milk Of Magnesia) 30 ml PO DAILY PRN PRN PRN Reason: Constipation Morphine Sulfate () 1 mg IV Q4H PRN PRN PRN Reason: SEVERE PAIN (6-10/10) Nutritional Formula (Lactose Free) (Ensure Enlive) 120 ml PO 4X/DAY COUNT INCLUDES THE [facility] Last Admin: 12/30/17 21:09 Dose: 120 ml Oxycodone HCl (Oxyir) 5 mg PO Q4H PRN PRN PRN Reason: SEVERE PAIN (6-10/10) Last Admin: 12/28/17 22:25 Dose: 5 mg Psyllium Hydrophilic Mucilloid (Metamucil) 1 packet PO DAILY PRN PRN PRN Reason: CONSTIPATION Senna/Docusate Sodium (Senokot-S, Verito-Colace) 2 tablet PO BID COUNT INCLUDES THE [facility] Last Admin: 12/30/17 21:10 Dose: Not Given Sodium Chloride () 10 ml IV UD PRN PRN Reason: VAD FLUSH Last Admin: 12/31/17 06:26 Dose: 10 ml Tbo-Filgrastim (Granix) 480 mcg SC DAILY [facility] Last Admin: 12/30/17 11:28 Dose: 480 mcg Zolpidem Tartrate (Ambien (Generic)) 5 mg PO QHS PRN PRN PRN Reason: SLEEP Last Admin: 12/31/17 01:07 Dose: 5 mg Medical Necessity - Tobacco Use Smoking Status: Never smoker Tobacco Use: Non-smoker Assessment/Plan All Active Problems Neutropenic fever (Acute) Pancytopenia (Acute) The patient is a 52 y/o M w/ PMHx: Follicular Lymphoma stage III/IV, Pancytopenia, Obesity, Chronic Anal Fissures who presents to the [facility] ED on 12/26/17 with history of ongoing fever times 1 week with last chemo approximately 1 week prior, R-CHOP following w/ Dr. Flores. (1) Neutropenic fever affected secondary to possibly infected anal fissures with ongoing rectal bleeding: Admitted to [place], maintained on neutropenic precautions, Bld Cx 12/26/17 x 2 with NGTD, repeat 12/28/17 Bld Cx pending, UCx without growth, Respiratory viral panel unremarkable, maintained on initially meropenem and vancomycin-->transitioned to IV meropenem only, Surgery consulted and following, maintained on nifedipine topical and bowel regimen, as noted planned sitz baths with chemotherapy at home which he notes he has been performing, continued granix treatments, ID and Oncology following. Mag and phos normal levels. Per Oncology would plan discharge to home once ANC improved, 12/30/17 ANC 0.7-->12/31/17 ANC decreased again 0.1, will continue to monitor. Per discussion with infectious disease discharge to home once appropriate initially on oral Levaquin and oral Flagyl regimen; however, repeat discussions on 12/30/17 with decision for discontinued off abx therapy but will monitor and if needed may consider especially given now loose stools. 12/30/17-12/31/17 start of loose stools, bowel regimen held, pending stool culture, c-diff assay. (2) Diarrhea, New onset, Unclear Etiology: Possible secondary to abx therapy alone, but given current presentation, causing irritation of rectal fissure, no bleeding per patient report, maintained currently on meropenem as noted, bowel regimen held, will obtain stool culture, c-diff assay. Added lactobacillus regimen. (3) Pancytopenia, Acute on Chronic: Secondary to recent chemotherapy, s/p 1 u PRBC during admission, admission Hgb 7.8, WBC 1, Plts 107 w/ ANC < 1, 12/30/17 CBC w/ WBC 1.3, Hgb 8.3, Plts 122 with ANC improving 0.7; however, repeat 12/31/17 CBC w/ WBC 1.2, Hgb 8.3, Plts 142, ANC 0.1. (4) Follicular Lymphoma stage III/IV: Following w/ Dr. Flores, per college he notes plan potentially washing sits baths during chemotherapy to decrease risk of infection, plan likely decrease dose of chemotherapy with subsequent cycles secondary to ongoing issues with neutropenia, continued Granix until ANC greater than 1000. Dr. Spicer consulted and following. Mag and phos normal levels. (5) RY Ruled out: Admission BUN/Cr 10/1.23, baseline Cr appears 0.9-1, repeat 12/29/17 11/0.86-->12/31/17 BUN/Cr 9/0.72, stable, not consistent with YR given baseline 0.9-1 as noted. (6) DVT prophylaxis: SCDs, defer chemoprophylaxis given noted #2. Code Visit Inpatient E&M: 02143 Subs Hosp L2
[2017-12-31 08:34] VITALS: BP 107/62; PULSE 71; RESP 18; TEMP 36.6; O2SAT 99
[2017-12-31] MEDS: Senna/Docusate Sodium 1 Tablet 2 TABLET PO (08:38)
[2017-12-31] MEDS: Acyclovir 200 MG Capsule 400 MG PO ×2 (08:39→22:16)
[2017-12-31] MEDS: TBO-FILGRASTIM 480 MCG/0.8 ML ML SC (08:48)
[2017-12-31 14:21] VITALS: BP 96/52; PULSE 77; RESP 18; TEMP 36.3; O2SAT 97
[2017-12-31] MEDS: Diphenoxylate/Atrop 1 Tablet PO (17:15)
[2017-12-31 21:07] VITALS: BP 143/81; PULSE 73; RESP 16; TEMP 37.2; O2SAT 99
[2017-12-31] MEDS: Ibuprofen 400 MG Tablet PO (22:12)
[2018-01-01 05:00] VITALS: BP 108/75; PULSE 64; RESP 16; TEMP 36.9; O2SAT 98
[2018-01-01] MEDS: 0.9% NaCl VAD Flush 10 ML IV ×3 (05:15→05:18)
[2018-01-01] MEDS: Diphenoxylate/Atrop 1 Tablet PO ×2 (05:18→20:46)
[2018-01-01 05:30] LABS: Absolute Lymphocyte Count 0.85 X10^3/ul (0.83-4.51); Basophil# 0.01 X10^3/uL; Basophil% 0.8 % (0-1); Hematocrit 27.2 % (40-54); Hemoglobin 9.1 g/dl (13.0-16.5); Lymphocyte # 0.85 X10^3/ul (4.0); Lymphocyte % 65.4 % (19-41); Mean Corp Hgb Conc 33.5 g/gl (32-36); Mean Corpuscular Hgb 28.3 pg (27.0-32.0); Mean Corpuscular Volume 84.7 fL (80-94); Mean Platelet Vol. 10.4 fl (6.2-12.0); Monocyte# 0.44 X10^3/uL; Monocyte% 33.8 % (0-10); Platelet Count 177 K/mm3 (150-450); RBC Distribution Width CV 15.3 % (11.6-14.6); RBC Distribution Width SD 47.8 fl (35.1-43.9); Red Blood Count 3.21 M/mm3 (4.6-6.2)
[2018-01-01 05:42] LABS: Anion Gap 8 (5-15); BUN 12 mg/dL (7-18); BUN/Creat Ratio 16.5 RATIO (10-20); Calcium,Total 8.9 mg/dL (8.5-10.1); Chloride 108 mmol/L (98-107); Creatinine, Serum 0.73 mg/dL (0.70-1.30); EST Glomerular Filtration Rate 121 mL/min (>60); Est Glom Filt Rate - Afr Amer 146 mL/min (>60); Estimated Creatinine Clearance 127.51 ml/min; Glucose 86 mg/dL (74-106); Potassium 4.2 mmol/L (3.5-5.1); Sodium Level 144 mmol/L (136-145)
[2018-01-01 05:51] LABS: White Blood Count 1.3 K/mm3 (4.4-11.0)
[2018-01-01 05:52] LABS: Differential Indicated SCAN CRITERIA MET; POSITIVE COUNT YES; POSITIVE DIFFERENTIAL YES; POSITIVE MORPHOLOGY YES
[2018-01-01 06:25] LABS: Atypical Lymphocyte 2+ %; Differential Comment SCANNED
--- NOTE | 2018-01-01 08:08 | PCM.PN.HOSP ---
Patient Problems: Active and Suspected Problems Neutropenic fever (Acute) Pancytopenia (Acute) Subjective: Patient notes that stools have been more formed and no recurrent diarrhea since day prior with improved appetite he notes. He states that abdominal distention and mild discomfort has completely resolved as well. He states that he slept well. He does still have some diaphoresis although room thermometer was reading 75 degrees and was turned down now. Patient and spouse frustrated that ANC still remains less than 1. Oncology contacted and currently other provider covering for Dr. Spicer with recommendation for continued current interventions and plan reevaluation per Dr. Spicer on Tuesday. Patient denies fevers, chills, nausea, emesis, abdominal pain, chest pain or dyspnea. Objective: Physical Examination: General: awake, alert, oriented x 3 and cooperative, seated upright at beside, in no apparent distress. Skin: normal color, turgor, no icterus, cyanosis. HEENT: AT/NC, EOMI, PERRLA, MMM. Lungs: CTA bilaterally, moderate effort, mild decrease BL bases, no rales, ronchi or wheezing. Heart: Regular rate and rhythm; no gallop, rub audible, right chest port in place. Abdomen: soft, obese, NTTP, improved normalized BS, distention resolved. Extremities: no cyanosis, clubbing, or edema. Neurological: patient awake, alert, oriented x 3; cognitive function intact; pupils equally reactive to light and accomodation; cranial nerves II-XII grossly normal, moving all 4 extremities, no focal deficits, strength improved but remains mildly globally decreased. Psychiatric: affect appears fatigued, understands need to remain but disappointed for continued hospitalization, no acute evidence of depressive or anxiety feelings. Vitals/I&O's: Vital Signs Temp Pulse Resp BP Pulse Ox 98.5 F 64 16 108/75 98 01/01/18 05:00 01/01/18 05:00 01/01/18 05:00 01/01/18 05:00 01/01/18 05:00 Oxygen Delivery Method Room Air Weight: 260 lb 4.796 oz Body Mass Index (BMI) 36.3 Intake and Output for Last 24 Hours 12/30/17 12/31/17 01/01/18 23:59 23:59 23:59 Intake Total 78.6 / 78.6 173.7 / 173.7 798 / 798 Balance 78.6 / 78.6 173.7 / 173.7 798 / 798 Microbiology Past 72 Hours 12/31/17 11:15 Stool Enteric Bacteriology - Preliminary 12/31/17 11:15 Stool C. difficile DNA Amplification - Final 12/26/17 11:52 Blood Culture (Wb) - Anticubital Right Blood Culture - Final No growth in 5 days. 12/26/17 11:50 Blood Culture (Wb) - Port Blood Culture - Final No growth in 5 days. 12/31/17 11:15 Stool Stool Lactoferrin - Final 12/28/17 03:18 Blood Culture (Wb) - Anticubital Right Blood Culture - Preliminary No growth in 48 hours. 12/28/17 03:25 Blood Culture (Wb) - Port Blood Culture - Preliminary No growth in 48 hours. Laboratory Results 01/01/18 05:10: WBC 1.3 L*, RBC 3.21 L, Hgb 9.1 L, Hct 27.2 L, MCV 84.7, MCH 28.3, MCHC 33.5, RDW 15.3 H, RDW Differential 47.8 H, Plt Count 177, MPV 10.4, Immature Gran % (Auto) 0.000, Neut % (Auto) 0.0 L, Lymph % (Auto) 65.4 H, [place] % (Auto) 33.8 H, Eos % (Auto) 0.0, Baso % (Auto) 0.8, Absolute Neuts (auto) 0.0 L, Absolute Lymphs (auto) 0.85, Total Counted Not Reportable, Differential Comment SCANNED, Diff Path Review May foll, Atypical Lymphocytes 2+ 01/01/18 05:10: Sodium 144, Potassium 4.2, Chloride 108 H, Carbon Dioxide 28.0, Anion Gap 8, BUN 12, Creatinine 0.73, Estim Creat Clear Calc 127.51, Est GFR (MDRD) Af Amer 146, Est GFR (MDRD) Non-Af 121, BUN/Creatinine Ratio 16.5, Glucose 86, Calcium 8.9 Current Medications Acetaminophen (Tylenol) 650 mg PO Q6H PRN PRN PRN Reason: FEVER Last Admin: 12/30/17 05:59 Dose: 650 mg Acyclovir (Zovirax) 400 mg PO BID [facility] Last Admin: 12/31/17 22:16 Dose: 400 mg Nifedipine 120 mg/ Petrolatum (60 gm) 0 mg TOPICAL 4X/DAY [facility] Last Admin: 12/31/17 22:15 Dose: 1 apply Diphenoxylate HCl/Atropine (Lomotil) 1 tablet PO 4X/DAY PRN PRN Reason: loose stools/diarrhea Last Admin: 01/01/18 05:18 Dose: 1 tablet Heparin Sodium (Beef Lung) (Heparin 500 Unit/5 Ml (100/Ml)) 500 unit IV UD PRN PRN Reason: HEPARIN FLUSH Meropenem 1 gm/ Sodium (Chloride) 120 mls @ 33 mls/hr IV Q8 [facility] Last Admin: 01/01/18 05:15 Dose: 33 mls/hr Sodium Chloride () 250 mls @ 15 mls/hr IV .[id number] PRN PRN Reason: SALINE FLUSH Ibuprofen (Motrin) 400 mg PO BID PRN PRN Reason: PAIN Last Admin: 12/31/17 22:12 Dose: 400 mg Lactobacillus Acidophilus (Acidophilus) 1 tablet PO 4X/DAY [facility] Last Admin: 12/31/17 22:12 Dose: 1 tablet Magnesium Hydroxide (Milk Of Magnesia) 30 ml PO DAILY PRN PRN PRN Reason: Constipation Morphine Sulfate () 1 mg IV Q4H PRN PRN PRN Reason: SEVERE PAIN (6-10/10) Nutritional Formula (Lactose Free) (Ensure Enlive) 120 ml PO 4X/DAY [facility] Last Admin: 12/31/17 22:13 Dose: 120 ml Oxycodone HCl (Oxyir) 5 mg PO Q4H PRN PRN PRN Reason: SEVERE PAIN (6-10/10) Last Admin: 12/28/17 22:25 Dose: 5 mg Psyllium Hydrophilic Mucilloid (Metamucil) 1 packet PO DAILY [facility] Sodium Chloride () 10 ml IV UD PRN PRN Reason: VAD FLUSH Last Admin: 01/01/18 05:18 Dose: 10 ml Tbo-Filgrastim (Granix) 480 mcg SC DAILY [facility] Last Admin: 12/31/17 08:48 Dose: 480 mcg Zolpidem Tartrate (Ambien (Generic)) 5 mg PO QHS PRN PRN PRN Reason: SLEEP Last Admin: 12/31/17 01:07 Dose: 5 mg Medical Necessity - Tobacco Use Smoking Status: Never smoker Tobacco Use: Non-smoker Assessment/Plan All Active Problems Neutropenic fever (Acute) Pancytopenia (Acute) The patient is a 52 y/o M w/ PMHx: Follicular Lymphoma stage III/IV, Pancytopenia, Obesity, Chronic Anal Fissures who presents to the [facility] ED on 12/26/17 with history of ongoing fever times 1 week with last chemo approximately 1 week prior, R-CHOP following w/ Dr. Flores. (1) Neutropenic fever affected secondary to possibly infected anal fissures with ongoing rectal bleeding: Admitted to [place], maintained on neutropenic precautions, Bld Cx 12/26/17 x 2 with NGTD, repeat 12/28/17 Bld Cx pending, UCx without growth, Respiratory viral panel unremarkable, maintained on initially meropenem and vancomycin-->transitioned to IV meropenem only, Surgery consulted and following, maintained on nifedipine topical and bowel regimen, as noted planned sitz baths with chemotherapy at home which he notes he has been performing, continued granix treatments, ID and Oncology following. Mag and phos normal levels. Per Oncology would plan discharge to home once ANC improved, 12/30/17 ANC 0.7-->12/31/17 ANC 0.1-->01/01/18 ANC 0, will continue to monitor. Per discussion with infectious disease discharge to home once appropriate initially on oral Levaquin and oral Flagyl regimen; however, repeat discussions on 12/30/17 with decision for discontinued off abx therapy but will monitor and if needed may consider especially given transient loose stools, improved 01/01/18 with hold on all softening agents, stool cultures negative, c-diff negative, LF negative. Added back metamucil as patient very insistent. Encouraged liberalization of his diet based on what sounds good to him to encourage intact. Will given 1L NS as noted marked diaphoresis. (2) Diarrhea, New onset, Unclear Etiology: Possible secondary to abx therapy alone, but given current presentation, causing irritation of rectal fissure, no bleeding per patient report, maintained currently on meropenem as noted, bowel regimen held, negative stool cultures, negative c-diff, negative LF. Suspect abx related. PRN Lomotil. Added lactobacillus regimen. (3) Pancytopenia, Acute on Chronic: Secondary to recent chemotherapy, s/p 1 u PRBC during admission, admission Hgb 7.8, WBC 1, Plts 107 w/ ANC < 1, 12/30/17 CBC w/ WBC 1.3, Hgb 8.3, Plts 122 with ANC improving 0.7; however, repeat 01/01/18 CBC w/ WBC 1.3, Hgb 9.1, Plts 177, ANC 0.0. (4) Follicular Lymphoma stage III/IV: Following w/ Dr. Flores, per [facility] he notes plan potentially washing sits baths during chemotherapy to decrease risk of infection, plan likely decrease dose of chemotherapy with subsequent cycles secondary to ongoing issues with neutropenia, continued Granix until ANC greater than 1000. Dr. Spicer consulted and following. Mag and phos normal levels. (5) RY Ruled out: Admission BUN/Cr 10/1.23, baseline Cr appears 0.9-1, repeat 12/29/17 11/0.86-->01/01/18 BUN/Cr 12/0.73, stable, not consistent with RY given baseline 0.9-1 as noted. Giving 1L NS secondary to patient reported notable diaphoresis. (6) DVT prophylaxis: SCDs, defer chemoprophylaxis given noted #2. Code Visit Inpatient E&M: 50486 Subs Hosp L2
--- NOTE | 2018-01-01 08:11 | PN_ITS ---
Patient Problems: Active and Suspected Problems Neutropenic fever (Acute) Pancytopenia (Acute) Subjective: Patient notes that stools have been more formed and no recurrent diarrhea since day prior with improved appetite he notes. He states that abdominal distention and mild discomfort has completely resolved as well. He states that he slept well. He does still have some diaphoresis although room thermometer was reading 75 degrees and was turned down now. Patient and spouse frustrated that ANC still remains less than 1. Oncology contacted and currently other provider covering for Dr. Spicer with recommendation for continued current interventions and plan reevaluation per Dr. Spicer on Tuesday. Patient denies fevers, chills, nausea, emesis, abdominal pain, chest pain or dyspnea. Objective: Physical Examination: General: awake, alert, oriented x 3 and cooperative, seated upright at beside, in no apparent distress. Skin: normal color, turgor, no icterus, cyanosis. HEENT: AT/NC, EOMI, PERRLA, MMM. Lungs: CTA bilaterally, moderate effort, mild decrease BL bases, no rales, ronchi or wheezing. Heart: Regular rate and rhythm; no gallop, rub audible, right chest port in place. Abdomen: soft, obese, NTTP, improved normalized BS, distention resolved. Extremities: no cyanosis, clubbing, or edema. Neurological: patient awake, alert, oriented x 3; cognitive function intact; pupils equally reactive to light and accomodation; cranial nerves II-XII grossly normal, moving all 4 extremities, no focal deficits, strength improved but remains mildly globally decreased. Psychiatric: affect appears fatigued, understands need to remain but disappointed for continued hospitalization, no acute evidence of depressive or anxiety feelings. Vitals/I&O's: Vital Signs Temp Pulse Resp BP Pulse Ox 98.5 F 64 16 108/75 98 01/01/18 05:00 01/01/18 05:00 01/01/18 05:00 01/01/18 05:00 01/01/18 05:00 Oxygen Delivery Method Room Air Weight: 260 lb 4.796 oz Body Mass Index (BMI) 36.3 Intake and Output for Last 24 Hours 12/30/17 12/31/17 01/01/18 23:59 23:59 23:59 Intake Total 78.6 / 78.6 173.7 / 173.7 798 / 798 Balance 78.6 / 78.6 173.7 / 173.7 798 / 798 Microbiology Past 72 Hours 12/31/17 11:15 Stool Enteric Bacteriology - Preliminary 12/31/17 11:15 Stool C. difficile DNA Amplification - Final 12/26/17 11:52 Blood Culture (Wb) - Anticubital Right Blood Culture - Final No growth in 5 days. 12/26/17 11:50 Blood Culture (Wb) - Port Blood Culture - Final No growth in 5 days. 12/31/17 11:15 Stool Stool Lactoferrin - Final 12/28/17 03:18 Blood Culture (Wb) - Anticubital Right Blood Culture - Preliminary No growth in 48 hours. 12/28/17 03:25 Blood Culture (Wb) - Port Blood Culture - Preliminary No growth in 48 hours. Laboratory Results 01/01/18 05:10: WBC 1.3 L*, RBC 3.21 L, Hgb 9.1 L, Hct 27.2 L, MCV 84.7, MCH 28.3, MCHC 33.5, RDW 15.3 H, RDW Differential 47.8 H, Plt Count 177, MPV 10.4, Immature Gran % (Auto) 0.000, Neut % (Auto) 0.0 L, Lymph % (Auto) 65.4 H, [place] % (Auto) 33.8 H, Eos % (Auto) 0.0, Baso % (Auto) 0.8, Absolute Neuts (auto) 0.0 L, Absolute Lymphs (auto) 0.85, Total Counted Not Reportable, Differential Comment SCANNED, Diff Path Review May foll, Atypical Lymphocytes 2+ 01/01/18 05:10: Sodium 144, Potassium 4.2, Chloride 108 H, Carbon Dioxide 28.0, Anion Gap 8, BUN 12, Creatinine 0.73, Estim Creat Clear Calc 127.51, Est GFR (MDRD) Af Amer 146, Est GFR (MDRD) Non-Af 121, BUN/Creatinine Ratio 16.5, Glucose 86, Calcium 8.9 Current Medications Acetaminophen (Tylenol) 650 mg PO Q6H PRN PRN PRN Reason: FEVER Last Admin: 12/30/17 05:59 Dose: 650 mg Acyclovir (Zovirax) 400 mg PO BID [facility] Last Admin: 12/31/17 22:16 Dose: 400 mg Nifedipine 120 mg/ Petrolatum (60 gm) 0 mg TOPICAL 4X/DAY [facility] Last Admin: 12/31/17 22:15 Dose: 1 apply Diphenoxylate HCl/Atropine (Lomotil) 1 tablet PO 4X/DAY PRN PRN Reason: loose stools/diarrhea Last Admin: 01/01/18 05:18 Dose: 1 tablet Heparin Sodium (Beef Lung) (Heparin 500 Unit/5 Ml (100/Ml)) 500 unit IV UD PRN PRN Reason: HEPARIN FLUSH Meropenem 1 gm/ Sodium (Chloride) 120 mls @ 33 mls/hr IV Q8 [facility] Last Admin: 01/01/18 05:15 Dose: 33 mls/hr Sodium Chloride () 250 mls @ 15 mls/hr IV .[id number] PRN PRN Reason: SALINE FLUSH Ibuprofen (Motrin) 400 mg PO BID PRN PRN Reason: PAIN Last Admin: 12/31/17 22:12 Dose: 400 mg Lactobacillus Acidophilus (Acidophilus) 1 tablet PO 4X/DAY [facility] Last Admin: 12/31/17 22:12 Dose: 1 tablet Magnesium Hydroxide (Milk Of Magnesia) 30 ml PO DAILY PRN PRN PRN Reason: Constipation Morphine Sulfate () 1 mg IV Q4H PRN PRN PRN Reason: SEVERE PAIN (6-10/10) Nutritional Formula (Lactose Free) (Ensure Enlive) 120 ml PO 4X/DAY [facility] Last Admin: 12/31/17 22:13 Dose: 120 ml Oxycodone HCl (Oxyir) 5 mg PO Q4H PRN PRN PRN Reason: SEVERE PAIN (6-10/10) Last Admin: 12/28/17 22:25 Dose: 5 mg Psyllium Hydrophilic Mucilloid (Metamucil) 1 packet PO DAILY [facility] Sodium Chloride () 10 ml IV UD PRN PRN Reason: VAD FLUSH Last Admin: 01/01/18 05:18 Dose: 10 ml Tbo-Filgrastim (Granix) 480 mcg SC DAILY [facility] Last Admin: 12/31/17 08:48 Dose: 480 mcg Zolpidem Tartrate (Ambien (Generic)) 5 mg PO QHS PRN PRN PRN Reason: SLEEP Last Admin: 12/31/17 01:07 Dose: 5 mg Medical Necessity - Tobacco Use Smoking Status: Never smoker Tobacco Use: Non-smoker Assessment/Plan All Active Problems Neutropenic fever (Acute) Pancytopenia (Acute) The patient is a 52 y/o M w/ PMHx: Follicular Lymphoma stage III/IV, Pancytope le, Obesity, Chronic Anal Fissures who presents to the [facility] ED on 12/26/17 with history of ongoing fever times 1 week with last chemo approximately 1 week prior, R-CHOP following w/ Dr. Flores. (1) Neutropenic fever affected secondary to possibly infected anal fissures with ongoing rectal bleeding: Admitted to [place], maintained on neutropenic precautions, Bld Cx 12/26/17 x 2 with NGTD, repeat 12/28/17 Bld Cx pending, UCx without growth, Respiratory viral panel unremarkable, maintained on initially meropenem and vancomycin-->transitioned to IV meropenem only, Surgery consulted and following, maintained on nifedipine topical and bowel regimen, as noted planned sitz baths with chemotherapy at home which he notes he has been performing, continued granix treatments, ID and Oncology following. Mag and phos normal levels. Per Oncology would plan discharge to home once ANC improved, 12/30/17 ANC 0.7-->12/31/17 ANC 0.1-->01/01/18 ANC 0, will continue to monitor. Per discussion with infectious disease discharge to home once appropriate initially on oral Levaquin and oral Flagyl regimen; however, repeat discussions on 12/30/17 with decision for discontinued off abx therapy but will monitor and if needed may consider especially given transient loose stools, improved 01/01/18 with hold on all softening agents, stool cultures negative, c-diff negative, LF negative. Added back metamucil as patient very insistent. Encouraged liberalization of his diet based on what sounds good to him to encourage intact. Will given 1L NS as noted marked diaphoresis. (2) Diarrhea, New onset, Unclear Etiology: Possible secondary to abx therapy alone, but given current presentation, causing irritation of rectal fissure, no bleeding per patient report, maintained currently on meropenem as noted, bowel regimen held, negative stool cultures, negative c-diff, negative LF. Suspect abx related. PRN Lomotil. Added lactobacillus regimen. (3) Pancytopenia, Acute on Chronic: Secondary to recent chemotherapy, s/p 1 u GA BC during admission, admission Hgb 7.8, WBC 1, Plts 107 w/ ANC < 1, 12/30/17 CBC w/ WBC 1.3, Hgb 8.3, Plts 122 with ANC improving 0.7; however, repeat 01/01/18 CBC w/ WBC 1.3, Hgb 9.1, Plts 177, ANC 0.0. (4) Follicular Lymphoma stage III/IV: Following w/ Dr. Flores, per [facility] he notes plan potentially washing sits baths during chemotherapy to decrease risk of infection, plan likely decrease dose of chemotherapy with subsequent cycles secondary to ongoing issues with neutropenia, continued Granix until ANC greater than 1000. Dr. Spicer consulted and following. Mag and phos normal levels. (5) RY Ruled out: Admission BUN/Cr 10/1.23, baseline Cr appears 0.9-1, repeat 12/29/17 11/0.86-->01/01/18 BUN/Cr 12/0.73, stable, not consistent with RY given baseline 0.9-1 as noted. Giving 1L NS secondary to patient reported notable diaphoresis. (6) DVT prophylaxis: SCDs, defer chemoprophylaxis given noted #2. Code Visit Inpatient E&M: 46202 Subs Hosp L2
[2018-01-01 09:30] VITALS: BP 110/67; PULSE 72; RESP 16; TEMP 36.7; O2SAT 98
[2018-01-01] MEDS: Acyclovir 200 MG Capsule 400 MG PO ×2 (10:32→22:28)
[2018-01-01] MEDS: Ibuprofen 400 MG Tablet PO ×2 (10:36→20:39)
[2018-01-01] MEDS: TBO-FILGRASTIM 480 MCG/0.8 ML ML SC (10:36)
[2018-01-01] MEDS: 0.9% Normal Saline 1,000 ML 150 ML IV (14:18)
[2018-01-01] MEDS: Psyllium 1 PACKET PO (14:19)
[2018-01-01 15:20] VITALS: BP 111/78; PULSE 75; RESP 16; TEMP 36.6; O2SAT 98
[2018-01-01 20:40] VITALS: BP 109/89; PULSE 72; RESP 18; TEMP 36.8; O2SAT 97
[2018-01-02 03:43] VITALS: BP 102/58; PULSE 72; RESP 16; TEMP 36.9; O2SAT 98
[2018-01-02] MEDS: Diphenoxylate/Atrop 1 Tablet PO ×2 (03:46→21:46)
[2018-01-02] MEDS: 0.9% NaCl VAD Flush 10 ML IV ×2 (06:06→12:37)
[2018-01-02 06:34] LABS: Anion Gap 6 (5-15); BUN 11 mg/dL (7-18); BUN/Creat Ratio 15.1 RATIO (10-20); Calcium,Total 8.6 mg/dL (8.5-10.1); Chloride 109 mmol/L (98-107); Creatinine, Serum 0.73 mg/dL (0.70-1.30); EST Glomerular Filtration Rate 121 mL/min (>60); Est Glom Filt Rate - Afr Amer 146 mL/min (>60); Estimated Creatinine Clearance 127.51 ml/min; Glucose 79 mg/dL (74-106); Potassium 4.3 mmol/L (3.5-5.1); Sodium Level 144 mmol/L (136-145)
[2018-01-02 07:08] LABS: Absolute Lymphocyte Count 0.72 X10^3/ul (0.83-4.51); Basophil# 0.01 X10^3/uL; Basophil% 0.7 % (0-1); Eosinophil# 0.01 X10^3/uL; Eosinophils% 0.7 % (0-5); Hematocrit 26.1 % (40-54); Hemoglobin 8.7 g/dl (13.0-16.5); Lymphocyte # 0.72 X10^3/ul (4.0); Mean Corp Hgb Conc 33.3 g/gl (32-36); Mean Corpuscular Hgb 28.7 pg (27.0-32.0); Mean Corpuscular Volume 86.1 fL (80-94); Mean Platelet Vol. 11.2 fl (6.2-12.0); Monocyte% 48.6 % (0-10); Platelet Count 212 K/mm3 (150-450); RBC Distribution Width CV 14.4 % (11.6-14.6); Red Blood Count 3.03 M/mm3 (4.6-6.2)
[2018-01-02 07:14] LABS: Differential Indicated SCAN CRITERIA MET; POSITIVE COUNT YES; POSITIVE DIFFERENTIAL YES; POSITIVE MORPHOLOGY NO
[2018-01-02 07:15] LABS: White Blood Count 1.4 K/mm3 (4.4-11.0)
[2018-01-02 07:31] LABS: Differential Comment SCANNED; Hypochromasia 2+
--- NOTE | 2018-01-02 08:18 | PCM.PN.BLA ---
Progress Note Hematology oncology progress note: Patient is asymptomatic, rectal pain is improving. Loose stool, no nausea or vomiting. Afebrile this weekend, but ANC still less than 1,000 on Granix (G-CSF) Laboratory Results - last 24 hr 01/02/18 01/02/18 06:00 06:00 WBC 1.4 L* RBC 3.03 L Hgb 8.7 L Hct 26.1 L MCV 86.1 MCH 28.7 MCHC 33.3 RDW 14.4 RDW Differential 44.0 H Plt Count 212 MPV 11.2 Immature Gran % (Auto) 0.000 Neut % (Auto) 0.0 L Lymph % (Auto) 50.0 H [place] % (Auto) 48.6 H Eos % (Auto) 0.7 Baso % (Auto) 0.7 Absolute Neuts (auto) 0.0 L Absolute Lymphs (auto) 0.72 L Total Counted Not Reportable Differential Comment SCANNED Diff Path Review May foll Hypochromasia 2+ Sodium 144 Potassium 4.3 Chloride 109 H Carbon Dioxide 29.0 Anion Gap 6 BUN 11 Creatinine 0.73 Estim Creat Clear Calc 127.51 Est GFR (MDRD) Af Amer 146 Est GFR (MDRD) Non-Af 121 BUN/Creatinine Ratio 15.1 Glucose 79 Calcium 8.6 Impression/Plan: 1) neutropenic fever-all cultures are negative. -Continue meropenem and vancomycin. -Continue Granix until ANC > 1000 -Anticipate fever to resolve once neutropenia resolve; probably will go home today. 2) rectal bleeding and rectal fissure- source of infection. -Continue conservative therapy with topical anesthetic and stool softener. -Wait until he is completed chemotherapy before option. -Wash and sitz bath during chemotherapy treatment to decrease risks of infection. 3) follicular lymphoma- partial response after 4 cycles of chemotherapy -Follow up with Dr. Flores next week -Will likely decrease dose of chemotherapy with subsequent cycle of chemotherapy because of neutropenia. cc: Dr. Ravin Flores; Dr. Michel Qureshi; Dr. Rylee Knox
[2018-01-02] MEDS: Ibuprofen 400 MG Tablet PO ×2 (08:48→21:41)
[2018-01-02] MEDS: Acyclovir 200 MG Capsule 400 MG PO ×2 (08:48→21:42)
[2018-01-02 08:50] VITALS: BP 109/55; PULSE 82; RESP 16; TEMP 36.9; O2SAT 99
[2018-01-02] MEDS: TBO-FILGRASTIM 480 MCG/0.8 ML ML SC (08:53)
--- NOTE | 2018-01-02 09:10 | PCM.PN.HOSP ---
Patient Problems: Active and Suspected Problems Neutropenic fever (Acute) Pancytopenia (Acute) Subjective: Patient with no acute events overnight per self and per nursing report. Patient states his stools have lessened and are no longer liquid with only one overnight. Reviewed current status and noted that ANC is still not appropriate for discharge per discussion with oncology. Noted to patient that given he has remained afebrile and blood culture x4 total now unremarkable, urine culture unremarkable, respiratory panel unremarkable, stool cultures and C. difficile assay unremarkable possible discharge to home even if ANC is unremarkable in a.m. with appropriate plan for daily Granix and CBC for ANC assessment per discussion with Dr. Spicer. Dr. Carter had requested that antibiotic be discontinued as possibly may be associated with lowered ANC versus chemotherapy. Patient denies fevers, chills, nausea, emesis, abdominal pain, chest pain or dyspnea. Objective: Physical Examination: General: awake, alert, oriented x 3 and cooperative, seated upright at beside, in no apparent distress. Skin: normal color, turgor, no icterus, cyanosis. HEENT: AT/NC, EOMI, PERRLA, MMM. Lungs: CTA bilaterally, moderate effort, mild decrease BL bases, no rales, ronchi or wheezing. Heart: Regular rate and rhythm; no gallop, rub audible, right chest port in place. Abdomen: soft, obese, NTTP, normalized BS, distention resolved. Extremities: no cyanosis, clubbing, or edema. Neurological: patient awake, alert, oriented x 3; cognitive function intact; pupils equally reactive to light and accomodation; cranial nerves II-XII grossly normal, moving all 4 extremities, no focal deficits, strength improved, preserved. Psychiatric: affect appears normal, frustrated but understands needs to remain, no acute evidence of depressive or anxiety feelings. Vitals/I&O's: Vital Signs Temp Pulse Resp BP Pulse Ox 98.4 F 72 16 102/58 L 98 01/02/18 03:43 01/02/18 03:43 01/02/18 03:43 01/02/18 03:43 01/02/18 03:43 Oxygen Delivery Method Room Air Weight: 260 lb 4.796 oz Body Mass Index (BMI) 36.3 Intake and Output for Last 24 Hours 12/31/17 01/01/18 01/02/18 23:59 23:59 23:59 Intake Total 173.7 / 173.7 1841 Balance 173.7 / 173.7 1841 Microbiology Past 72 Hours 12/28/17 03:18 Blood Culture (Wb) - Anticubital Right Blood Culture - Final No growth in 5 days. 12/28/17 03:25 Blood Culture (Wb) - Port Blood Culture - Final No growth in 5 days. 12/31/17 11:15 Stool Enteric Bacteriology - Final 12/31/17 11:15 Stool C. difficile DNA Amplification - Final 12/26/17 11:52 Blood Culture (Wb) - Anticubital Right Blood Culture - Final No growth in 5 days. 12/26/17 11:50 Blood Culture (Wb) - Port Blood Culture - Final No growth in 5 days. 12/31/17 11:15 Stool Stool Lactoferrin - Final Laboratory Results 01/02/18 06:00: WBC 1.4 L*, RBC 3.03 L, Hgb 8.7 L, Hct 26.1 L, MCV 86.1, MCH 28.7, MCHC 33.3, RDW 14.4, RDW Differential 44.0 H, Plt Count 212, MPV 11.2, Immature Gran % (Auto) 0.000, Neut % (Auto) 0.0 L, Lymph % (Auto) 50.0 H, [place] % (Auto) 48.6 H, Eos % (Auto) 0.7, Baso % (Auto) 0.7, Absolute Neuts (auto) 0.0 L, Absolute Lymphs (auto) 0.72 L, Total Counted Not Reportable, Differential Comment SCANNED, Diff Path Review May foll, Hypochromasia 2+ 01/02/18 06:00: Sodium 144, Potassium 4.3, Chloride 109 H, Carbon Dioxide 29.0, Anion Gap 6, BUN 11, Creatinine 0.73, Estim Creat Clear Calc 127.51, Est GFR (MDRD) Af Amer 146, Est GFR (MDRD) Non-Af 121, BUN/Creatinine Ratio 15.1, Glucose 79, Calcium 8.6 Current Medications Acetaminophen (Tylenol) 650 mg PO Q6H PRN PRN PRN Reason: FEVER Last Admin: 12/30/17 05:59 Dose: 650 mg Acyclovir (Zovirax) 400 mg PO BID [facility] Last Admin: 01/02/18 08:48 Dose: 400 mg Nifedipine 120 mg/ Petrolatum (60 gm) 0 mg TOPICAL 4X/DAY [facility] Last Admin: 01/02/18 08:50 Dose: 1 apply Diphenoxylate HCl/Atropine (Lomotil) 1 tablet PO 4X/DAY PRN PRN Reason: loose stools/diarrhea Last Admin: 01/02/18 03:46 Dose: 1 tablet Heparin Sodium (Beef Lung) (Heparin 500 Unit/5 Ml (100/Ml)) 500 unit IV UD PRN PRN Reason: HEPARIN FLUSH Meropenem 1 gm/ Sodium (Chloride) 120 mls @ 33 mls/hr IV Q8 [facility] Last Admin: 01/02/18 06:05 Dose: 33 mls/hr Sodium Chloride () 250 mls @ 15 mls/hr IV .[id number] PRN PRN Reason: SALINE FLUSH Ibuprofen (Motrin) 400 mg PO BID PRN PRN Reason: PAIN Last Admin: 01/02/18 08:48 Dose: 400 mg Lactobacillus Acidophilus (Acidophilus) 1 tablet PO 4X/DAY [facility] Last Admin: 01/02/18 08:49 Dose: 1 tablet Magnesium Hydroxide (Milk Of Magnesia) 30 ml PO DAILY PRN PRN PRN Reason: Constipation Morphine Sulfate () 1 mg IV Q4H PRN PRN PRN Reason: SEVERE PAIN (6-10/10) Nutritional Formula (Lactose Free) (Ensure Enlive) 120 ml PO 4X/DAY [facility] Last Admin: 01/02/18 08:53 Dose: 120 ml Oxycodone HCl (Oxyir) 5 mg PO Q4H PRN PRN PRN Reason: SEVERE PAIN (6-10/10) Last Admin: 12/28/17 22:25 Dose: 5 mg Psyllium Hydrophilic Mucilloid (Metamucil) 1 packet PO DAILY [facility] Last Admin: 01/02/18 08:49 Dose: Not Given Sodium Chloride () 10 ml IV UD PRN PRN Reason: VAD FLUSH Last Admin: 01/02/18 06:06 Dose: 10 ml Tbo-Filgrastim (Granix) 480 mcg SC DAILY [facility] Last Admin: 01/02/18 08:53 Dose: 480 mcg Zolpidem Tartrate (Ambien (Generic)) 5 mg PO QHS PRN PRN PRN Reason: SLEEP Last Admin: 12/31/17 01:07 Dose: 5 mg Medical Necessity - Tobacco Use Smoking Status: Never smoker Tobacco Use: Non-smoker Assessment/Plan All Active Problems Neutropenic fever (Acute) Pancytopenia (Acute) The patient is a 52 y/o M w/ PMHx: Follicular Lymphoma stage III/IV, Pancytopenia, Obesity, Chronic Anal Fissures who presents to the [facility] ED on 12/26/17 with history of ongoing fever times 1 week with last chemo approximately 1 week prior, R-CHOP following w/ Dr. Flores. (1) Neutropenic fever affected secondary to possibly infected anal fissures with ongoing rectal bleeding: Admitted to [place], maintained on neutropenic precautions, Bld Cx 12/26/17 x 2 with NGTD, repeat 12/28/17 Bld Cx pending, UCx without growth, Respiratory viral panel unremarkable, maintained on initially meropenem and vancomycin-->transitioned to IV meropenem only, Surgery consulted and following, maintained on nifedipine topical and bowel regimen, as noted planned sitz baths with chemotherapy at home which he notes he has been performing, continued granix treatments, ID and Oncology following. Mag and phos normal levels. Per Oncology would plan discharge to home once ANC improved, 12/30/17 ANC 0.7-->12/31/17 ANC 0.1-->01/01/18 ANC 0,-->01/02/18 ANC remains 0 despite granix. 01/01/18 with hold on all softening agents, stool cultures negative, c-diff negative, LF negative. Added back metamucil as patient very insistent. Encouraged liberalization of his diet based on what sounds good to him to encourage intact. Administered IVFs. Discussion with ID and Oncology on 01/02/18 given ANC remains <1, patient eager for discharge, possible ANC reduction as side effect of abx versus his chemotherapy, thus given Bld Cx x 4, UCx, resp panel and stool assessment all unremarkable as well as afebrile, discontinued meropenem. Plan repeat CBC in AM and re-discussion with Oncology at that time but possibility of discharge to home w/ home RN w/ daily CBC w/ differential and granix continuation with reporting to Dr. Spicer daily with strict parameters on home environment and visitations given status. Will re-assess plan in AM pending CBC. (2) Diarrhea, New onset, Unclear Etiology: Possible secondary to abx therapy alone, but given current presentation, causing irritation of rectal fissure, no bleeding per patient report, maintained currently on meropenem as noted, bowel regimen held, negative stool cultures, negative c-diff, negative LF. Suspect abx related which has been discontinued. PRN Lomotil. Added lactobacillus regimen. (3) Pancytopenia, Acute on Chronic: Secondary to recent chemotherapy, s/p 1 u PRBC during admission, admission Hgb 7.8, WBC 1, Plts 107 w/ ANC < 1, 12/30/17 CBC w/ WBC 1.3, Hgb 8.3, Plts 122 with ANC improving 0.7; however, repeat 01/01/18 CBC w/ WBC 1.3, Hgb 9.1, Plts 177, ANC 0.0. 01/02/18 CBC w/ WBC 1.4, Hgb 8.7, Plts 212 with ANC 0. (4) Follicular Lymphoma stage III/IV: Following w/ Dr. Flores, per college he notes plan potentially washing sits baths during chemotherapy to decrease risk of infection, plan likely decrease dose of chemotherapy with subsequent cycles secondary to ongoing issues with neutropenia, continued Granix until ANC greater than 1000 w/ possible home transition plan as noted #1. Dr. Spicer consulted and following. Mag and phos normal levels. (5) RY Ruled out: Admission BUN/Cr 10/1.23, baseline Cr appears 0.9-1, repeat 12/29/17 11/0.86-->01/02/18 BUN/Cr 11/0.73, stable, not consistent with RY given baseline 0.9-1 as noted. Giving 1L NS secondary to patient reported notable diaphoresis. (6) DVT prophylaxis: SCDs, defer chemoprophylaxis given noted #2. Code Visit Inpatient E&M: 46301 Subs Hosp L2
[2018-01-02] MEDS: Acetaminophen 325 MG Tablet 650 MG PO ×2 (09:49→17:25)
[2018-01-02 12:51] LABS: Pathologist Review Reviewed
[2018-01-02 12:53] LABS: Pathologist Review Reviewed
[2018-01-02 12:56] LABS: Pathologist Review Reviewed
--- NOTE | 2018-01-02 14:42 | CASEMGMT ---
Social Work Note Physician updated this worker that pt would benefit from daily vital sign check and for someone to administer Granix at home. SW updated RN PEE Coles of this. Leann Arvizu [employer] TE[employer], [employer]
[2018-01-02 15:15] VITALS: BP 92/46; PULSE 72; RESP 18; TEMP 36.9; O2SAT 98
--- NOTE | 2018-01-02 15:21 | PCM.PN.ID ---
Patient Problems: Active and Suspected Problems Neutropenic fever (Acute) Pancytopenia (Acute) Subjective: Feeling ok, frustrated about his counts. No fever. No abd pain. Some loose stool, some rectal pain. - Physical Exam General: Alert, Cooperative, No apparent distress Lungs: Clear to auscultation, Normal air movement Cardiovascular: Regular rate, Regular Rhythm Abdomen: Soft, Non Tender, Non-Distended Skin: No rashes Vital Signs Temp Pulse Resp BP Pulse Ox 98.4 F 82 16 109/55 L 99 01/02/18 08:50 01/02/18 08:50 01/02/18 08:50 01/02/18 08:50 01/02/18 08:50 Oxygen Delivery Method Room Air Weight: 118.07 kg Body Mass Index (BMI) 36.3 Intake and Output for Last 24 Hours 12/31/17 01/01/18 01/02/18 23:59 23:59 23:59 Intake Total 173.7 / 173.7 1842 / 1842 2279 / 2279 Balance 173.7 / 173.7 1842 / 1842 2279 / 2279 Microbiology Past 72 Hours 12/28/17 03:18 Blood Culture - Final Blood Culture (Wb) - Anticubital Right No growth in 5 days. 12/28/17 03:25 Blood Culture - Final Blood Culture (Wb) - Port No growth in 5 days. 12/31/17 11:15 Enteric Bacteriology - Final Stool 12/31/17 11:15 C. difficile DNA Amplification - Final Stool 12/26/17 11:52 Blood Culture - Final Blood Culture (Wb) - Anticubital Right No growth in 5 days. 12/26/17 11:50 Blood Culture - Final Blood Culture (Wb) - Port No growth in 5 days. 12/31/17 11:15 Stool Lactoferrin - Final Stool Laboratory Tests Past 24 Hrs 12/31/17 01/01/18 01/02/18 06:18 05:10 06:00 WBC 1.4 L* RBC 3.03 L Hgb 8.7 L Hct 26.1 L MCV 86.1 MCH 28.7 MCHC 33.3 RDW 14.4 RDW Differential 44.0 H Plt Count 212 MPV 11.2 Immature Gran % (Auto) 0.000 Neut % (Auto) 0.0 L Lymph % (Auto) 50.0 H [place] % (Auto) 48.6 H Eos % (Auto) 0.7 Baso % (Auto) 0.7 Absolute Neuts (auto) 0.0 L Absolute Lymphs (auto) 0.72 L Total Counted Not Reportable Differential Comment SCANNED Diff Path Review Reviewed Reviewed Reviewed Hypochromasia 2+ Sodium Potassium Chloride Carbon Dioxide Anion Gap BUN Creatinine Estim Creat Clear Calc Est GFR (MDRD) Af Amer Est GFR (MDRD) Non-Af BUN/Creatinine Ratio Glucose Calcium 01/02/18 06:00 WBC RBC Hgb Hct MCV MCH MCHC RDW RDW Differential Plt Count MPV Immature Gran % (Auto) Neut % (Auto) Lymph % (Auto) [place] % (Auto) Eos % (Auto) Baso % (Auto) Absolute Neuts (auto) Absolute Lymphs (auto) Total Counted Differential Comment Diff Path Review Hypochromasia Sodium 144 Potassium 4.3 Chloride 109 H Carbon Dioxide 29.0 Anion Gap 6 BUN 11 Creatinine 0.73 Estim Creat Clear Calc 127.51 Est GFR (MDRD) Af Amer 146 Est GFR (MDRD) Non-Af 121 BUN/Creatinine Ratio 15.1 Glucose 79 Calcium 8.6 Medical Necessity - Tobacco Use Smoking Status: Never smoker Tobacco Use: Non-smoker Route of nutrition/ use of supplements: [] Nutritional Intake: [] IV Site: [] [place] Catheter: [] - Assessment/Plan Antibiotics: [] Assessment/Plan: [] Active and Suspected Problems Neutropenic fever (Acute) Pancytopenia (Acute) Neutropenic fever with anal fissure - Fever resolved, and pain is resolved. Bcx neg so far. Resp viral panel was neg. Has meropenem. Surgery and oncology following. Stool studies neg. ANC remains zero despite earlier improvement. Meropenem has been stopped. Will start levaquin as prophylaxis. Will follow. D/w Dr. Knox.
[2018-01-02 21:39] VITALS: BP 131/74; PULSE 73; RESP 18; TEMP 37.1; O2SAT 100
[2018-01-02 21:45] VITALS: PULSE 73; RESP 18; O2SAT 100
[2018-01-03] MEDS: Acetaminophen 325 MG Tablet 650 MG PO (00:05)
[2018-01-03 03:30] VITALS: BP 105/66; PULSE 64; RESP 18; TEMP 36.6; O2SAT 100
[2018-01-03 03:51] VITALS: PULSE 64
[2018-01-03] MEDS: levoFLOXacin 500 MG Tablet PO (06:04)
[2018-01-03] MEDS: 0.9% NaCl VAD Flush 10 ML IV ×4 (06:05→06:10)
[2018-01-03 06:35] LABS: Anion Gap 7 (5-15); BUN 12 mg/dL (7-18); BUN/Creat Ratio 16.6 RATIO (10-20); Calcium,Total 8.6 mg/dL (8.5-10.1); Chloride 107 mmol/L (98-107); Creatinine, Serum 0.72 mg/dL (0.70-1.30); EST Glomerular Filtration Rate 122 mL/min (>60); Est Glom Filt Rate - Afr Amer 147 mL/min (>60); Estimated Creatinine Clearance 129.28 ml/min; Glucose 79 mg/dL (74-106); Potassium 4.2 mmol/L (3.5-5.1); Sodium Level 143 mmol/L (136-145)
[2018-01-03 06:42] LABS: Absolute Lymphocyte Count 0.76 X10^3/ul (0.83-4.51); Basophil# 0.03 X10^3/uL; Basophil% 1.7 % (0-1); Eosinophil# 0.01 X10^3/uL; Eosinophils% 0.6 % (0-5); Hematocrit 25.3 % (40-54); Hemoglobin 8.4 g/dl (13.0-16.5); Lymphocyte # 0.76 X10^3/ul (4.0); Lymphocyte % 43.9 % (19-41); Mean Corp Hgb Conc 33.2 g/gl (32-36); Mean Corpuscular Hgb 28.8 pg (27.0-32.0); Mean Corpuscular Volume 86.6 fL (80-94); Mean Platelet Vol. 11.2 fl (6.2-12.0); Monocyte# 0.93 X10^3/uL; Monocyte% 53.8 % (0-10); Platelet Count 241 K/mm3 (150-450); RBC Distribution Width CV 14.4 % (11.6-14.6); RBC Distribution Width SD 43.8 fl (35.1-43.9); Red Blood Count 2.92 M/mm3 (4.6-6.2); White Blood Count 1.7 K/mm3 (4.4-11.0)
[2018-01-03 06:43] LABS: Differential Indicated SCAN CRITERIA MET; POSITIVE COUNT NO; POSITIVE DIFFERENTIAL YES; POSITIVE MORPHOLOGY NO
--- NOTE | 2018-01-03 08:04 | PCM.PN.BLA ---
Progress Note Hematology oncology progress note: Patient is doing well, afebrile after meropenem and vancomycin discontinued. He is currently on Levaquin. Diarrhea is resolved. Rectal pain and tenderness improved. Nausea vomiting. Vital Signs - 24 hr Temp Pulse Resp BP Pulse Ox 01/03/18 03:51 64 01/03/18 03:30 97.8 F 64 18 105/66 100 01/02/18 21:45 73 18 100 01/02/18 21:39 98.7 F 73 18 131/74 H 100 01/02/18 15:15 98.5 F 72 18 92/46 L 98 01/02/18 08:50 98.4 F 82 16 109/55 L 99 Laboratory Results - last 24 hr 12/31/17 01/01/18 01/02/18 06:18 05:10 06:00 WBC RBC Hgb Hct MCV MCH MCHC RDW RDW Differential Plt Count MPV Immature Gran % (Auto) Neut % (Auto) Lymph % (Auto) [place] % (Auto) Eos % (Auto) Baso % (Auto) Absolute Neuts (auto) Absolute Lymphs (auto) Total Counted Diff Path Review Reviewed Reviewed Reviewed Sodium Potassium Chloride Carbon Dioxide Anion Gap BUN Creatinine Estim Creat Clear Calc Est GFR (MDRD) Af Amer Est GFR (MDRD) Non-Af BUN/Creatinine Ratio Glucose Calcium 01/03/18 01/03/18 06:10 06:10 WBC 1.7 L RBC 2.92 L Hgb 8.4 L Hct 25.3 L MCV 86.6 MCH 28.8 MCHC 33.2 RDW 14.4 RDW Differential 43.8 Plt Count 241 MPV 11.2 Immature Gran % (Auto) 0.000 Neut % (Auto) 0.0 L Lymph % (Auto) 43.9 H [place] % (Auto) 53.8 H Eos % (Auto) 0.6 Baso % (Auto) 1.7 H Absolute Neuts (auto) 0.0 L Absolute Lymphs (auto) 0.76 L Total Counted Not Reportable Diff Path Review May foll Sodium 143 Potassium 4.2 Chloride 107 Carbon Dioxide 29.0 Anion Gap 7 BUN 12 Creatinine 0.72 Estim Creat Clear Calc 129.28 Est GFR (MDRD) Af Amer 147 Est GFR (MDRD) Non-Af 122 BUN/Creatinine Ratio 16.6 Glucose 79 Calcium 8.6 Impression/Plan: 1) neutropenic fever-all cultures are negative. (Prolonged neutropenia possibly secondary to rituximab/chemotherapy) -Remain afebrile after broad-spectrum antibiotics discontinued. Currently on Levaquin. -Bone marrow has definitely recovered with increased WBC and platelets. Peripheral blood smear also shows increased metamyelocytes, myelocytes and occasional bands. -Anticipate fever & WBC will continue to improve. -Stop Granix ( G-CSF ) -Repeat CBC this week, at our office. -Discharge home this morning. 2) rectal bleeding and rectal fissure- source of infection. -Continue conservative therapy with topical anesthetic and stool softener. -Wash with soap and water, and sitz bath after bowel movement to decrease risks of infection. 3) follicular lymphoma- partial response after 4 cycles of chemotherapy -Follow up with Dr. Flores next week -Will likely decrease dose of chemotherapy with subsequent cycle of chemotherapy because of neutropenia. cc: Dr. Ravin Flores; Dr. Michel Qureshi; Dr. Rylee Knox; Dr. Brady Perera
--- NOTE | 2018-01-03 08:19 | PCM.DC ---
- Discharge Diagnoses Current Active Problems: Current Active and Chronic Problems (1) Neutropenic fever affected secondary to possibly infected anal fissures with ongoing rectal bleeding (2) Diarrhea, New onset, Unclear Etiology, Possible secondary to abx therapy (3) Pancytopenia, Acute on Chronic, Suspected Primarily Secondary to recent chemotherapy, s/p 1 u PRBC during admission and granix (4) Follicular Lymphoma stage III/IV (5) RY Ruled out You will use the following diet at home:: Other - Encourage liberalization of diet to encourage appetite and then may resume prior diet restrictions per Oncology discretion. Your food should be the consistency of: Regular Your liquids should be the consistency of: Regular/Thin Discharge Activity: - - Given neutropenia, you must maintain strict parameters given your susceptibility for infection. Please limit your contacts and avoid any sick contacts. Do not transition to public events or places until cleared per Oncology. May resume sexual activity in: - - Once cleared per Oncology given neutropenia. Weight Bearing Status: Weight bearing as tolerated Call your doctor if you observe: Fever of 101 or Higher, Change in Color, Inability to urinate, Inability to have a bowel movement, Shortness of breath, Dizziness, Fainting spells, Chest pain, Uncontrolled pain Instructions: Neutropenia, Treating Diarrhea, Oncology: Controlling Diarrhea, Self-Care for Vomiting and Diarrhea, Dehydration Additional Instructions: Per Oncology request please have repeat CBC on 01/05/18 with plans for this to be sent to Dr. Flores and Dr. Spicer. They will relay any alteration in your regimen needs to you following with the plan for your to follow-up at the Clinic w/ Dr. Flores on 01/12/18. Allergies/Adverse Reactions: Allergies No Known Allergies Allergy (Verified 12/22/17 06:26) Medications to take at Discharge Acyclovir 400 mg PO BID 12/22/17 Allopurinol 300 mg PO DAILY 12/22/17 Dibucaine 1 applic TOPICAL TID PRN PRN 12/22/17 Hydrocodone/Acetaminophen [Bishop 5-325 Tablet] 1 ea PO Q4H PRN PRN #20 tab 12/22/17 Ibuprofen 400 mg PO Q8H PRN 12/22/17 Ondansetron [Zofran Odt] 8 mg PO Q8H PRN PRN 12/22/17 Oxycodone HCl/Acetaminophen [Percocet 5-325] 1 tablet PO Q4H PRN PRN 12/22/17 Diphenoxylate/Atrop [Lomotil] 1 tablet PO 4X/DAY PRN #20 tablet 01/03/18 Lactobacillus Acidophilus [Acidophilus] 1 tablet PO 4X/DAY #120 tablet 01/03/18 NIFEdipine [Procardia] 120 mg TOPICAL 4X/DAY #1 tube 01/03/18 Petrolatum,White [Petrolatum] 60 gm TOPICAL 4X/DAY #1 tube 01/03/18 Phenyleph/Pramoxin/Glycr/W.pet [Preparation H Cream] 1 applic TP 4X/DAY #1 tube 01/03/18 Psyllium [Metamucil] 1 packet PO DAILY #30 packet 01/03/18 levoFLOXacin tablet [Levaquin tablet] 500 mg PO DAILY@0600 #14 tablet 01/03/18 The following prescriptions were given: levoFLOXacin tablet [Levaquin tablet] 500 mg PO DAILY@0600 #14 tablet Psyllium [Metamucil] 1 packet PO DAILY #30 packet Diphenoxylate/Atrop [Lomotil] 1 tablet PO 4X/DAY PRN #20 tablet PRN Reason: loose stools/diarrhea Lactobacillus Acidophilus [Acidophilus] 1 tablet PO 4X/DAY #120 tablet NIFEdipine [Procardia] 120 mg TOPICAL 4X/DAY #1 tube Petrolatum,White [Petrolatum] 60 gm TOPICAL 4X/DAY #1 tube Phenyleph/Pramoxin/Glycr/W.pet [Preparation H Cream] 1 applic TP 4X/DAY #1 tube Orders to be completed after discharge: CBC W/Diff, Automated Time Frame: 2 Days, Location: Laboratory Primary Care Physician: John Ward [Primary Care Provider] - Please follow up with your Primary Care Physician in: Follow-up once ANC improved to avoid excessive exposure to PCP office. Test Results: Test results from this visit will be discussed in further detail at your follow-up appointment, if applicable. Please Follow Up With: Ravin Flores DO When: Follow-up on 01/12/18. Plan CBC on 01/05/18. Proposed Discharge Date: 01/03/18
--- NOTE | 2018-01-03 08:26 | DS.PCM_ITS ---
Discharge Date and Diagnosis - Problem List Patient Problems: Active and Suspected Problems Neutropenic fever (Acute) Pancytopenia (Acute) Date of Admission: 12/26/17 Date of Discharge: 01/03/18 - Primary Discharge Diagnosis Active and Suspected Problems (1) Neutropenic fever affected secondary to possibly infected anal fissures with ongoing rectal bleeding and also suspected secondary to chemotherapy (2) Diarrhea, New onset, Unclear Etiology, felt secondary to abx therapy, negative stool cultures, negative stool LF and negative c-diff assay (3) Pancytopenia, Acute on Chronic, Suspected Primarily Secondary to recent karina motherapy, s/p 1 u PRBC during admission and granix during admission (4) Follicular Lymphoma stage III/IV (5) RY Ruled out - Secondary Discharge Diagnosis Chronic Problems Lymphoma (Chronic) Anal fissure (Chronic) Hospital Course and Treatment Dr. Spicer Oncology Dr. Qureshi Surgery Dr. Doty Infectious disease Operations: None Procedures: Blood transfusion Summary of Care Provided: The patient is a 52 y/o M w/ PMHx: Follicular Lymphoma stage III/IV, Pancytopenia, Obesity, Chronic Anal Fissures who presented to the [facility] ED on 12/26/17 with history of ongoing fever times 1 week with last chemo approximately 1 week prior, R-[facility] following w/ Dr. Flores. Patient admitted and treated for Neutropenic fever felt secondary to possibly infected anal fissures with ongoing rectal bleeding. Patient admitted to [facility], maintained on neutropenic precautions, Bld Cx 12/26/17 x 2 with NGTD, repeat 12/28/17 Bld Cx pending, UCx without growth, Respiratory viral panel unremarkable, maintained on initially meropenem and vancomycin-->transitioned to IV meropenem-->oral levaquin 500 mg daily 01/02/18 secondary to concerns meropenem associated w/ ongoing neutropenia although felt more likely secondary to patient chemotherapeutic regimen. Surgery consulted and evaluated patient for rectal fissure, maintained on nifedipine topical and bowel regimen initially until loose stools w/ recommended continued sitz baths with chemotherapy at home. Patient maintained on granix treatments which were not continued on discharge as felt likely not effective and already on neulasta also. Mag and phos normal levels. Per Oncology would plan discharge to home once ANC improved, 12/30/17 ANC 0.7-->12/31/17 ANC 0.1-->01/01/18 ANC 0-->01/03/18 ANC remained 0 despite granix; however, discussed w/ Oncology and they personally evaluated the smear and felt improving especially given WBC increase. 01/01/18 held softening agents as onset of loose stools with stool cultures negative, c- diff negative, LF negative. Added back metamucil as patient very insistent. Encouraged liberalization of his diet based on what sounds good to him to encourage intact. Administered IVFs. Discussion with ID and Oncology on 01/02/18 and 01/03/18 given ANC remains <1 and patient clinically improved and eager for discharge with discharge plan for strict home parameters given neutropenia, planned repeat CBC w/ differential on 01/05/[address] Flores and Dr. Spicer w/ follow-up appt at Clinic 01/12/18. Patient discharged to home on topical nifedipine regimen, monitoring of bowels and restart softening agents, sitz bathing as was previously performing, levaquin 500 mg daily regimen. Encouraged follow-up with PCP once not neutropenic as do not want excess exposure as well as with Dr. Spicer/Sandra and Dr. Qureshi once current presentation clinically improved. During admission of note, initial concern for RY; however, ruled out, admission BUN/Cr 10/1.23, baseline Cr appears 0.9-1, repeat 12/29/17 11/0.86-->01/03/18 BUN/Cr 12/0.72. DAY OF DISCHARGE PROGRESS NOTE: Subjective: Patient without acute event overnight per self and nursing report. Patient notes bowels continue to improve and only had one loose stool overnight. He notes that he has liberalized his diet and appetite has improved. Patient denies fever, chills, nausea, emesis, abdominal pain, chest pain or dyspnea. Patient agreeable to discharge to home with strict parameters given neutropenia status and noted to patient need to return to hospital if onset fevers w/ current neutropenia. Objective: T 97.8, heart rate 64, BP 105/66, respiratory rate 18, 100% on room air. Physical Examination: General: awake, alert, oriented x 3 and cooperative, seated upright at beside, in no apparent distress. Skin: normal color, turgor, no icterus, cyanosis. HEENT: AT/NC, EOMI, PERRLA, MMM. Lungs: CTA bilaterally, moderate effort, mild decrease BL bases, no rales, ronchi or wheezing. Heart: Regular rate and rhythm; no gallop, rub audible, right chest port in place. Abdomen: soft, obese, NTTP, normalized BS, distention resolved. Extremities: no cyanosis, clubbing, or edema. Neurological: patient awake, alert, oriented x 3; cognitive function intact; pupils equally reactive to light and accomodation; cranial nerves II-XII grossly normal, moving all 4 extremities, no focal deficits, strength improved, preserved. Psychiatric: affect appears normal, frustrated but understands needs to remain, no acute evidence of depressive or anxiety feelings. Assessment and Plan: Please see hospital summary above. Discharge Activity: - - Given neutropenia, you must maintain strict parameters given your susceptibility for infection. Please limit your contacts and avoid any sick contacts. Do not transition to public events or places until cleared per Oncology. May resume sexual activity in: - - Once cleared per Oncology given neutropenia. Weight Bearing Status: Weight bearing as tolerated Call your doctor if you observe: Fever of 101 or Higher, Change in Color, Inability to urinate, Inability to have a bowel movement, Shortness of breath, Dizziness, Fainting spells, Chest pain, Uncontrolled pain Home Medications: Medications to take at Discharge RX: Acyclovir 400 mg PO BID 12/22/17 RX: Allopurinol 300 mg PO DAILY 12/22/17 RX: Dibucaine 1 applic TOPICAL TID PRN PRN 12/22/17 RX: Hydrocodone/Acetaminophen [Cornish 5-325 Tablet] 1 ea PO Q4H PRN PRN #20 tab 12/22/17 RX: Ibuprofen 400 mg PO Q8H PRN 12/22/17 RX: Ondansetron [Zofran Odt] 8 mg PO Q8H PRN PRN 12/22/17 RX: Oxycodone HCl/Acetaminophen [Percocet 5-325] 1 tablet PO Q4H PRN PRN 12/22/17 RX: Diphenoxylate/Atrop [Lomotil] 1 tablet PO 4X/DAY PRN #20 tablet 01/03/18 RX: Lactobacillus Acidophilus [Acidophilus] 1 tablet PO 4X/DAY #120 tablet 01/03/18 RX: NIFEdipine [Procardia] 120 mg TOPICAL 4X/DAY #1 tube 01/03/18 RX: Petrolatum,White [Petrolatum] 60 gm TOPICAL 4X/DAY #1 tube 01/03/18 RX: Phenyleph/Pramoxin/Glycr/W.pet [Preparation H Cream] 1 applic TP 4X/DAY #1 tube 01/03/18 RX: Psyllium [Metamucil] 1 packet PO DAILY #30 packet 01/03/18 RX: levoFLOXacin tablet [Levaquin tablet] 500 mg PO DAILY@0600 #14 tablet 01/03/18 Following Prescrptions Were Given to Patient: RX: levoFLOXacin tablet [Levaquin tablet] 500 mg PO DAILY@0600 #14 tablet RX: Psyllium [Metamucil] 1 packet PO DAILY #30 packet RX: Diphenoxylate/Atrop [Lomotil] 1 tablet PO 4X/DAY PRN #20 tablet PRN Reason: loose stools/diarrhea RX: Lactobacillus Acidophilus [Acidophilus] 1 tablet PO 4X/DAY #120 tablet RX: NIFEdipine [Procardia] 120 mg TOPICAL 4X/DAY #1 tube RX: Petrolatum,White [Petrolatum] 60 gm TOPICAL 4X/DAY #1 tube RX: Phenyleph/Pramoxin/Glycr/W.pet [Preparation H Cream] 1 applic TP 4X/DAY #1 tube Other Amb Orders: CBC W/Diff, Automated Time Frame: 2 Days, Location: Laboratory Primary Care Physician: John Ward [Primary Care Provider] - Please follow up with your Primary Care Physician in: Follow-up once ANC improved to avoid excessive exposure to PCP office. Please Follow Up With: Ravin Flores DO When: Follow-up on 01/12/18. Plan CBC on 01/05/18. Patient Instructions: Neutropenia, Treating Diarrhea, Oncology: Controlling Diarrhea, Self-Care for Vomiting and Diarrhea, Dehydration Disposition: Home Minutes spent on discharge:: 35 Patient Condition:: Fair Medical Necessity - Tobacco Use Smoking Status: Never smoker Tobacco Use: Non-smoker Meaningful Use Info Meaningful Use Diagnoses (Choose all that apply): None applicable Code Visit Inpatient E&M: 53637 [facility]
[2018-01-03] MEDS: Acyclovir 200 MG Capsule 400 MG PO (09:39)
[2018-01-03] MEDS: Diphenoxylate/Atrop 1 Tablet PO (09:42)
[2018-01-03 09:43] VITALS: BP 122/77; PULSE 82; RESP 18; TEMP 36.7; O2SAT 96
--- NOTE | 2018-01-03 10:28 | PCM.PN.ID ---
Subjective: No fever, still some diarrhea, no blood in stool, home today. - Physical Exam General: Alert, Cooperative, No apparent distress Lungs: Clear to auscultation, Normal air movement Cardiovascular: Regular rate, Regular Rhythm Abdomen: Soft, Non Tender, Non-Distended Skin: No rashes Vital Signs Temp Pulse Resp BP Pulse Ox 98.0 F 82 18 122/77 H 96 01/03/18 09:43 01/03/18 09:43 01/03/18 09:43 01/03/18 09:43 01/03/18 09:43 Oxygen Delivery Method Room Air Weight: 118.07 kg Body Mass Index (BMI) 36.3 Intake and Output for Last 24 Hours 01/01/18 01/02/18 01/03/18 23:59 23:59 23:59 Intake Total 1841 / 1842 2679 / 2679 840 / 840 Balance 1841 / 1841 2679 / 2679 840 / 840 Microbiology Past 72 Hours 12/28/17 03:18 Blood Culture - Final Blood Culture (Wb) - Anticubital Right No growth in 5 days. 12/28/17 03:25 Blood Culture - Final Blood Culture (Wb) - Port No growth in 5 days. 12/31/17 11:15 Enteric Bacteriology - Final Stool 12/31/17 11:15 C. difficile DNA Amplification - Final Stool 12/26/17 11:52 Blood Culture - Final Blood Culture (Wb) - Anticubital Right No growth in 5 days. 12/26/17 11:50 Blood Culture - Final Blood Culture (Wb) - Port No growth in 5 days. 12/31/17 11:15 Stool Lactoferrin - Final Stool Laboratory Tests Past 24 Hrs 12/31/17 01/01/18 01/02/18 06:18 05:10 06:00 WBC RBC Hgb Hct MCV MCH MCHC RDW RDW Differential Plt Count MPV Immature Gran % (Auto) Neut % (Auto) Lymph % (Auto) [place] % (Auto) Eos % (Auto) Baso % (Auto) Absolute Neuts (auto) Absolute Lymphs (auto) Total Counted Diff Path Review Reviewed Reviewed Reviewed Sodium Potassium Chloride Carbon Dioxide Anion Gap BUN Creatinine Estim Creat Clear Calc Est GFR (MDRD) Af Amer Est GFR (MDRD) Non-Af BUN/Creatinine Ratio Glucose Calcium 01/03/18 01/03/18 06:10 06:10 WBC 1.7 L RBC 2.92 L Hgb 8.4 L Hct 25.3 L MCV 86.6 MCH 28.8 MCHC 33.2 RDW 14.4 RDW Differential 43.8 Plt Count 241 MPV 11.2 Immature Gran % (Auto) 0.000 Neut % (Auto) 0.0 L Lymph % (Auto) 43.9 H [place] % (Auto) 53.8 H Eos % (Auto) 0.6 Baso % (Auto) 1.7 H Absolute Neuts (auto) 0.0 L Absolute Lymphs (auto) 0.76 L Total Counted Not Reportable Diff Path Review July Sodium 143 Potassium 4.2 Chloride 107 Carbon Dioxide 29.0 Anion Gap 7 BUN 12 Creatinine 0.72 Estim Creat Clear Calc 129.28 Est GFR (MDRD) Af Amer 147 Est GFR (MDRD) Non-Af 122 BUN/Creatinine Ratio 16.6 Glucose 79 Calcium 8.6 Medical Necessity - Tobacco Use Smoking Status: Never smoker Tobacco Use: Non-smoker Route of nutrition/ use of supplements: [] Nutritional Intake: [] IV Site: [] Ordonez Catheter: [] - Assessment/Plan Antibiotics: [] Assessment/Plan: [] Active and Suspected Problems Neutropenic fever (Acute) Pancytopenia (Acute) Neutropenic fever with anal fissure - Fever resolved, and pain is resolved. Bcx neg so far. Resp viral panel was neg. Has meropenem. Surgery and oncology following. Stool studies neg. ANC remains zero despite earlier improvement. Meropenem has been stopped. Cont evaquin as prophylaxis until ANC recovers Will follow. D/w Dr. Knox. D/c home today.
[2018-01-04 09:13] LABS: Pathologist Review Reviewed
--- NOTE | 2018-01-04 15:07 | CASEMGMT ---
TIM GLASGOW Discharge Follow-up Phone Call: EDGARD: Batsheva Strata: 4 Call Date: Discharge Date: 01/03/18 Time of Call: 1505 Duration: 3 min Admitting Diagnosis: Neutropenic fever TIM GLASGOW completed follow-up phone call after recent hospitalization. Patient states that he is doing fine. Patient denies questions regarding discharge instructions. Patient states that he has follow-up appt scheduled.
== END 2018-01-03 09:49 | disposition home or self-care (01) | DRG 809 ==
LOC: ED 11:32 → MS3 13:14
PROVIDERS: Internal Medicine Hematology & Oncology; Admitting Provider Internal Medicine; Emergency Provider Emergency Medicine; Family Provider Family Medicine; PCP Family Medicine; Visit Provider Family Medicine
DX: D70.3 Neutropenia due to infection (principal); K62.5 Hemorrhage of anus and rectum; K52.1 Toxic gastroenteritis and colitis; C82.90 Follicular lymphoma, unspecified, unspecified site; D70.1 Agranulocytosis secondary to cancer chemotherapy; D61.810 Antineoplastic chemotherapy induced pancytopenia; T45.1X5A Adverse effect of antineoplastic and immunosuppressive drugs, initial encounter; R50.81 Fever presenting with conditions classified elsewhere; K60.2 Anal fissure, unspecified; T36.95XA Adverse effect of unspecified systemic antibiotic, initial encounter; E66.9 Obesity, unspecified; Z68.36 Body mass index [BMI] 36.0-36.9, adult
CPT/HCPCS: 36415; 36591; 71045; 74177; 80048; 80053; 80202; 81001; 83605; 83630; 83735; 84100; 85025; 86850; 86900; 86920; 86922; 87040; 87086; 87493; 87506; 87633; 87641; 99282; J2185; J7030; J7040; J7050; P9040; Q9967; A4216; J1447; J1940

== ENCOUNTER → 2018-03-06 07:57 | Outpatient (CLI) | payer OTHER, SELFPAY ==
--- NOTE | 2018-03-06 06:41 | PET_ITS ---
EXAMINATION: FDG PET CT INDICATIONS: A 52-year-old male with reported history of lymphoma presenting for restaging examination. COMPARISON EXAMINATION: CT of the abdomen and pelvis report dated 12/26/17. INDEX LESION SIZE LUGANO SCORE SUV INTERPRETATION Bilateral neck, axillary regions 13.9 mm x 24.4 mm largest (frame 242) 5 4.5 (max) Fulfills quantitative criteria for viable neoplasm Right hemipelvic mesentery, bilateral inguinal regions 17.3 mm x 14.1 mm largest (frame 46) 4 2.5 (max) Fulfills quantitative criteria for viable neoplasm TECHNIQUE: Following the intravenous administration of 13.27 mCi of F-18 deoxyglucose via the left antecubital fossa, multiplanar image acquisitions of the neck, chest, abdomen and pelvis to level of mid thigh, obtained at one hour post radiopharmaceutical administration contemporaneously interpreted with the current CT of the neck, chest, abdomen and pelvis to level of mid thigh, dated 03/06/[address] of the abdomen and pelvis report dated 12/26/17 reveal: SERUM GLUCOSE LEVEL: 95 mg/dl. HEIGHT: 71 inches. WEIGHT: 250 lbs. FINDINGS: 1. Multifocal increased glucose metabolism is defined in the bilateral-lateral neck involving level II A, the right-left axillary regions. The calculated maximum standard uptake value is 4.5. The Lugano-Deauville score is 5. The maximal axial diameter of the largest corresponding hypermetabolic soft tissue density on review of CT of the neck-chest dated 03/06/18 is approximately 13.9 mm (transverse) x 24.4 mm (AP). 2. Enhanced FDG concentration is demonstrated in the right lower hemipelvic mesentery and bilateral inguinal regions generating a calculated maximum standard uptake value of 2.5. The Lugano-Deauville score is 4. The maximal axial diameter of the largest individual hypermetabolic soft tissue density on review of CT of the pelvis dated 03/06/18 is 17.3 mm (transverse) x 14.1 mm (AP). 3. Normal physiologic distribution of the radiopharmaceutical is apparent in the hepatic (2.9) and splenic parenchyma, both renal units, bladder and visualized intestinal tract. There is symmetric and preserved glucose metabolism noted in the visualized portion of the frontal, occipital, temporal and parietal lobes of the cerebral cortex, as well as cerebral hemispheres and basal ganglia. ? Diffuse intestinal tract activity is noted throughout all four quadrants of the abdominal-pelvic retroperitoneum, mesentery consistent with normal physiologic distribution of the radiopharmaceutical. Prominent glucose metabolism is defined in the descending thoracic, as well as abdominal aorta. Pertinent CT findings are as follows. CHEST: Fosg-N-Hipe-MediPort placement is noted. Multiple bilateral axillary soft tissue densities demonstrate varying degrees of quantitatively significant increased glucose metabolism. Mediastinal soft tissue is ametabolic. There are no parenchymal densities-nodules defined in the right and left hemithorax demonstrating discernible increased glucose metabolism. ABDOMEN AND PELVIS: There is fatty metamorphosis involving the hepatic parenchyma. Calcification is defined in the left kidney. Cyst formation is visualized in the right kidney with a maximal axial diameter of approximately 4.7 cm (transverse). Apparent seroma formation is defined in the left inguinal region without evidence of facilitated glucose metabolism. SKELETAL: Degenerative changes defined in the cervical, thoracic and lumbar spine demonstrate no evidence for glucose hypermetabolism. PET/PET/CT Tumor Base -Thigh Subs IMPRESSION: 1. ABNORMAL EXAMINATION INDICATIVE OF MALIGNANT-VIABLE NEOPLASM. 2. Increased glucose concentration defined in the bilateral-lateral neck and axillary regions fulfills quantitative criteria for viable neoplasm. 3. Enhanced FDG distribution defined in the right lower pelvis mesentery and bilateral inguinal regions fulfills quantitative criteria for malignant transformation. 4. Prominent glucose concentration observed in the descending thoracic, as well as abdominal aorta is commensurate with activated leukocytes associated with atherosclerotic plaque formation. (Bao et al, Clinical Nuclear Medicine 29:93, 2004). Electronic Signature Michel Bell D.O. Electronically Signed: Michel Bell DO at 22:29 EST Tel , Service support ,
== END ==
PROVIDERS: Family Provider Family Medicine; PCP Family Medicine; Visit Provider Internal Medicine Hematology & Oncology
DX: C82.98 Follicular lymphoma, unspecified, lymph nodes of multiple sites (principal)
CPT/HCPCS: 78815; A9552

== ENCOUNTER 2021-04-27 14:28 | Outpatient (CLI) | payer OTHER, SELFPAY ==
[2021-04-27] MEDS: 0.9% Saline Lock 10 ML Syringe IV (14:42)
[2021-04-27 14:46] VITALS: BP 153/85; PULSE 60; RESP 16; TEMP 36.8; O2SAT 96; BMI 41.5
[2021-04-27 15:26] VITALS: BP 126/76; PULSE 61; RESP 16; TEMP 36.7; O2SAT 99
[2021-04-27 16:24] VITALS: BP 132/77; PULSE 57; RESP 16; TEMP 36.8; O2SAT 100
== END 2021-04-27 23:59 | disposition home or self-care (01) ==
LOC: MS3OUT 14:28 → MS3 14:28
PROVIDERS: PCP Family Medicine; Referring Provider Nurse Practitioner Adult Health; Visit Provider Nurse Practitioner Adult Health
DX: Z23 Encounter for immunization (principal); U07.1 COVID-19
CPT/HCPCS: J7050; M0247; A4216; Q0247